=== PATIENT | male | born 1965 | race Hispanic/Latino ===

== ENCOUNTER 2018-11-18 14:28 | Inpatient (IN) | payer OTHER ==
[2018-11-18] MEDS ORDERED: Albuterol-Ipratrop 3 mg / 0.5 (3 ml) UD INH ONE (14:55)
[2018-11-18] MEDS ORDERED: Albuterol 0.083% Inhal Sol (2.5 mg/3 mL) UD IH STA (15:11)
[2018-11-18] MEDS ORDERED: Albuterol-Ipratrop 3 mg / 0.5 (3 ml) UD INH STA (15:13)
[2018-11-18 15:19] VITALS: BMI 29.8
[2018-11-18 15:46] LABS: BASO % 0.2 % (0.0-2.0); EOS % 0.1 % (0.0-4.0); HEMOGLOBIN 16.2 g/dL (12.0-18.0); LYMPH # 0.7 K/uL (1.0-4.3); LYMPH % 3.8 % (20.0-40.0); MEAN CORPUSCULAR HEMOGLOBIN 27.9 pg (27.0-31.0); MEAN CORPUSCULAR HGB CONC 32.8 g/dL (33.0-37.0); MEAN PLATELET VOLUME 8.1 fL (7.2-11.7); MONO # 0.8 K/uL (0.0-0.8); MONO % 4.7 % (0.0-10.0); NEUT # 16.3 K/uL (1.8-7.0); NEUT % 91.2 % (50.0-75.0); PLATELET COUNT 441 K/uL (130-400); RBC 5.83 Mil/uL (4.40-5.90); RED CELL DISTRIBUTION WIDTH 14.2 % (11.5-14.5); WHITE BLOOD COUNT 17.8 K/uL (4.8-10.8)
[2018-11-18] MEDS ORDERED: Albuterol 0.083% Inhal Sol (2.5 mg/3 mL) UD ONE (15:51)
[2018-11-18 16:13] LABS: ALB/GLOB RATIO 1.2 (1.0-2.1); ALBUMIN 4.1 g/dL (3.5-5.0); ALT/SGPT 12 U/L (21-72); AST/SGOT 53 U/L (17-59); BLOOD UREA NITROGEN 14 mg/dL (9-20); CALCIUM 9.1 mg/dl (8.6-10.4); GFR NON-AFRICAN AMERICAN > 60
[2018-11-18 16:36] LABS: B-TYPE NATRIURETIC PEPTIDE 15400 pg/mL (0-900); CK-MB 11.7 ng/mL (0.0-3.38)
--- NOTE | 2018-11-18 16:38 | C.PDOC ---
History Of Present Illness 53 y/o male brought to ER by ambulance for evaluation of shortness of breath and wheezing which began in the morning today. Patient states that he also has fever, chills, and non-productive cough since yesterday. Patient reports that he has history of marijuana smoking for "many years." Denies having CP, palpitations, nausea, vomiting, abdominal pain, diarrhea, and known history of asthma and COPD. Time Seen by Provider: 11/18/18 15:07 Chief Complaint (Nursing): Shortness Of Breath Past Medical History Reviewed: Historical Data, Nursing Documentation, Vital Signs Vital Signs: Last Vital Signs Temp 97.3 F L 11/18/18 14:55 Pulse 92 H 11/18/18 14:55 Resp 30 H 11/18/18 14:55 BP 146/68 11/18/18 14:55 Pulse Ox 91 L 11/18/18 14:55 - Medical History PMH: Arthritis Other Surgeries: Hx of surgeries Family History: States: No Known Family Hx - Social History Hx Alcohol Use: Yes Hx Substance Use: Yes Review Of Systems Except As Marked, All Systems Reviewed And Found Negative. Constitutional: Positive for: Fever, Chills Cardiovascular: Negative for: Chest Pain, Palpitations Respiratory: Positive for: Cough, Shortness of Breath, Wheezing Gastrointestinal: Negative for: Nausea, Vomiting, Abdominal Pain, Diarrhea Physical Exam - Physical Exam Appears: Other (speaking in full sentences, audible wheezing) Skin: Warm, Diaphoretic (mildly diaphoretic) Head: Atraumatic, Normacephalic Eye(s): bilateral: Normal Inspection Nose: Normal Oral Mucosa: Moist Neck: Supple Chest: Symmetrical Cardiovascular: Rhythm Regular (with tachycardia) Respiratory: Accessory Muscle Use (mild), No Rales, No Rhonchi, Wheezing (diffuse expiratory wheezing bilaterally), Other (coarse breath sounds B/L) Gastrointestinal/Abdominal: Normal Exam, Bowel Sounds, Soft, No Tenderness, No Guarding, No Rebound Extremity: Normal ROM Pulses: Left Dorsalis Pedis: Normal, Right Dorsalis Pedis: Normal Neurological/Psych: Oriented x3 ED Course And Treatment - Laboratory Results Result Diagrams: 11/18/18 15:42 11/18/18 15:42 Lab Results: Total Bilirubin 1.1 mg/dL (0.2-1.3) 11/18/18 15:42 AST 53 U/L (17-59) 11/18/18 15:42 ALT 12 U/L (21-72) L 11/18/18 15:42 Alkaline Phosphatase 79 U/L (38-126) 11/18/18 15:42 Total Protein 7.6 g/dL (6.3-8.3) 11/18/18 15:42 Albumin 4.1 g/dL (3.5-5.0) 11/18/18 15:42 Globulin 3.4 gm/dL (2.2-3.9) 11/18/18 15:42 Albumin/Globulin Ratio 1.2 (1.0-2.1) 11/18/18 15:42 ECG: Interpreted By Me, Viewed By Me ECG Rhythm: Sinus Tachycardia Interpretation Of ECG: Sinus Tachycardia with left axis deviation, T wave inversions in Leads I, AVL, V2, and no acute ST changes Rate From EC O2 Sat by Pulse Oximetry: 91 (RA) Pulse Ox Interpretation: Abnormal - CT Scan/US CT CHEST Other Rad Studies (CT/US): Read By Radiologist, Radiology Report Reviewed CT/US Interpretation: Accession No. : [id number]. Patient Name / ID : JOLLY Zhu / [id number]. Exam Date : 11/18/2018 16:44:44 ( Approved ). Study Comment : Sex / Age : M / 53Y. Creator : Ángela Hopkins. Dictator : Zully Hernandez MD. Trailhead Maintenance Worker : Electrician Apprentice : Zully Hernandez MD. Approver2 : Report Date : 11/18/2018 16:59:36. My Comment : . Date of service: 11/18/2018. CT chest without IV contrast. Indication: SOB, ? infiltrates. Technique: Contiguous axial images were obtained through the chest without intravenous contrast enhancement. Sagittal and coronal reconstructions were generated and reviewed. This CT exam was performed using 1 or more of the following dose reduction techniques: Automated exposure control, adjustment of the MAA and/or kV according to patient size, and/or use of iterative reconstruction technique. . Radiation dose (DLP): 950.27 MGy-cm. Comparison: Chest x-ray performed 11/18/18. Findings: Visualized portions of the inferior thyroid gland appear unremarkable. The un enhanced mediastinal and hilar vascular structures appear grossly unremarkable. Heart size appears top normal. Trace pericardial effusion. Dense coronary artery calcifications. Small bilateral pleural effusions. Patchy bilateral ground- glass airspace opacities with mid to upper lobe prominence. No pneumothorax. Limited visualization of the noncontrast upper abdomen appears grossly unremarkable. . Degenerative changes of the spine. Impression: Patchy bilateral ground-glass airspace opacities upper lobe predominance; indeterminate etiology. Correlate clinically. Considerations include but not limited to atypical infection, pulmonary edema, hemorrhage. Recommend follow-up upon completion of treatment for acute symptoms order to assess for complete resolution. Heart size appears top normal. Trace pericardial effusion. Dense coronary artery calcifications. Findings discussed with Dr. Leone on 11/18/18 at 5:28 p.m. Progress Note: Blood work, EKG, CXR, UA ordered and reviewed. Patient given IV solumedrol, albuterol treatments, IV Lasix, SL nitro, PO ASA. CXR abnormal, CT chest ordered. Broad spectrum antibiotics given for leukocytosis, B/L possible infiltrates. 5:35pm- Patient accepted for ICU admission by Dr. Rome. 6:15pm- Patient states he takes oxycodone for chronic pain, 15mg PO QID. one dose 15mg ordered now. - Physician Consult Information Physician Contacted: Ranjith Glover Outcome Of Conversation: Discussed patient with code heart cardio, patient does not meet COde Heart activation criteria at this time. He recommends IV heparin, PO Brilinta, ASA, and ICU admission. Will likely do cath in the AM. Disposition - Disposition Disposition: HOSPITALIZED Condition: SERIOUS - Clinical Impression Clinical Impression: Respiratory tract infection, Dyspnea - Scribe Statement The provider has reviewed the documentation as recorded by the Scribe Frank Marin Provider Attestation: All medical record entries made by the Scribe were at my direction and personally dictated by me. I have reviewed the chart and agree that the record accurately reflects my personal performance of the history, physical exam, medical decision making, and the department course for this patient. I have also personally directed, reviewed, and agree with the discharge instructions and disposition.
--- NOTE | 2018-11-18 16:39 | C.PDOC ---
Time Seen by Provider: 11/18/18 15:07 Chief Complaint (Nursing): Shortness Of Breath Past Medical History Vital Signs: Last Vital Signs Temp 97.3 F L 11/18/18 14:55 Pulse 92 H 11/18/18 14:55 Resp 30 H 11/18/18 14:55 BP 146/68 11/18/18 14:55 Pulse Ox 91 L 11/18/18 14:55 - Medical History PMH: Arthritis - Social History Hx Alcohol Use: Yes Hx Substance Use: Yes ED Course And Treatment - Laboratory Results Result Diagrams: 11/18/18 15:42 11/18/18 15:42 Lab Results: Total Bilirubin 1.1 mg/dL (0.2-1.3) 11/18/18 15:42 AST 53 U/L (17-59) 11/18/18 15:42 ALT 12 U/L (21-72) L 11/18/18 15:42 Alkaline Phosphatase 79 U/L (38-126) 11/18/18 15:42 Total Protein 7.6 g/dL (6.3-8.3) 11/18/18 15:42 Albumin 4.1 g/dL (3.5-5.0) 11/18/18 15:42 Globulin 3.4 gm/dL (2.2-3.9) 11/18/18 15:42 Albumin/Globulin Ratio 1.2 (1.0-2.1) 11/18/18 15:42 O2 Sat by Pulse Oximetry: 91 Disposition - Disposition
[2018-11-18 16:48] LABS: LYMPHOCYTE 4 % (20-40); MONOCYTE 3 % (0-10); NEUTROPHIL 93 % (50-75); PLATELET ESTIMATE SLIGHTLY INCREASED (NORMAL); TOTAL CELLS COUNTED 100
[2018-11-18] MEDS ORDERED: cefTRIAXone IV 1 gm in Dextros 50 ML IV ONE (16:56)
[2018-11-18] MEDS ORDERED: Azithromycin 500 MG in Sodium Chloride 0.9% 250 ML IVPB STA (16:57)
--- NOTE | 2018-11-18 17:08 | RAD ---
HISTORY: SOB COMPARISON: None available TECHNIQUE: Chest, one view. FINDINGS: LUNGS: Patchy bilateral airspace opacities and interstitial edema/infection. PLEURA: No significant pleural effusion identified. No definite pneumothorax . CARDIOVASCULAR: Borderline cardiomegaly. Faintly visualized atherosclerotic calcifications. OSSEOUS STRUCTURES: Degenerative changes of the spine. VISUALIZED UPPER ABDOMEN: Unremarkable. OTHER FINDINGS: None. IMPRESSION: Patchy bilateral airspace opacities and interstitial edema/infection.
[2018-11-18] MEDS ORDERED: Heparin25000 units/250ml 1/2NS 25,000 UNITS/250 ML BAG IV STA (17:25)
--- NOTE | 2018-11-18 17:27 | C.PDOC ---
History Of Present Illness 53 year male with hx of marijuana use presenting with c/o SOB since yesterday. CT chest shows bilateral pleural effusions with leukocytosis. Denies any chest pain Time Seen by Provider: 11/18/18 15:07 Chief Complaint (Nursing): Shortness Of Breath History Per: Patient History/Exam Limitations: no limitations Onset/Duration Of Symptoms: Waxing/Waning Current Symptoms Are (Timing): Still Present Exacerbating Factor(s): Coughing Current Respiratory Medications: See Home Med List Severity: Moderate Pain Scale Rating Of: 0 Associated Symptoms: Dizziness Past Medical History Vital Signs: Last Vital Signs Temp 97.3 F L 11/18/18 14:55 Pulse 92 H 11/18/18 14:55 Resp 30 H 11/18/18 14:55 BP 146/68 11/18/18 14:55 Pulse Ox 91 L 11/18/18 17:20 - Medical History PMH: Arthritis Other Surgeries: Hx of surgeries Family History: States: No Known Family Hx - Social History Hx Alcohol Use: Yes Hx Substance Use: Yes Review Of Systems Respiratory: Positive for: Shortness of Breath Physical Exam - Physical Exam Appears: Well, No Acute Distress Skin: Normal Color, Warm, Dry Eye(s): bilateral: Normal Inspection, PERRL, EOMI Nose: Normal Throat: Normal Neck: Normal Cardiovascular: Rhythm Regular Respiratory: Normal Breath Sounds Gastrointestinal/Abdominal: Normal Exam Back: Normal Inspection Extremity: Normal ROM ED Course And Treatment - Laboratory Results Result Diagrams: 11/18/18 15:42 11/18/18 15:42 Lab Results: Troponin I 3.3300 ng/mL (0.00-0.120) H* 11/18/18 15:42 NT-Pro-B Natriuret Pep 59355 pg/mL (0-900) H 11/18/18 15:42 Total Bilirubin 1.1 mg/dL (0.2-1.3) 11/18/18 15:42 AST 53 U/L (17-59) 11/18/18 15:42 ALT 12 U/L (21-72) L 11/18/18 15:42 Alkaline Phosphatase 79 U/L (38-126) 11/18/18 15:42 Total Protein 7.6 g/dL (6.3-8.3) 11/18/18 15:42 Albumin 4.1 g/dL (3.5-5.0) 11/18/18 15:42 Globulin 3.4 gm/dL (2.2-3.9) 11/18/18 15:42 Albumin/Globulin Ratio 1.2 (1.0-2.1) 11/18/18 15:42 O2 Sat by Pulse Oximetry: 91 (RA) Medical Decision Making Medical Decision Making: IV heparin load with brilinta asa bb statins ICU echo plan for cath in am Disposition Doctor Will See Patient In The: Hospital - Disposition Disposition: HOSPITALIZED Disposition Time: 18:00 Condition: SERIOUS Forms: [employer] (Citizen [place]) - POA Core Measure Indicators: Pneumonia - Clinical Impression Clinical Impression: Respiratory tract infection, Dyspnea - Scribe Statement The provider has reviewed the documentation as recorded by the Scribe
--- NOTE | 2018-11-18 17:37 | CT ---
Date of service: 11/18/2018 CT chest without IV contrast Indication: SOB, ? infiltrates Technique: Contiguous axial images were obtained through the chest without intravenous contrast enhancement. Sagittal and coronal reconstructions were generated and reviewed. This CT exam was performed using 1 or more of the following dose reduction techniques: Automated exposure control, adjustment of the MAA and/or kV according to patient size, and/or use of iterative reconstruction technique. Radiation dose (DLP): 950.27 MGy-cm. Comparison: Chest x-ray performed 11/18/18 Findings: Visualized portions of the inferior thyroid gland appear unremarkable. The unenhanced mediastinal and hilar vascular structures appear grossly unremarkable. Heart size appears top normal. Trace pericardial effusion. Dense coronary artery calcifications. Small bilateral pleural effusions. Patchy bilateral ground-glass airspace opacities with mid to upper lobe prominence. No pneumothorax. Limited visualization of the noncontrast upper abdomen appears grossly unremarkable. Degenerative changes of the spine. Impression: Patchy bilateral ground-glass airspace opacities upper lobe predominance; indeterminate etiology. Correlate clinically. Considerations include but not limited to atypical infection, pulmonary edema, hemorrhage. Recommend follow-up upon completion of treatment for acute symptoms order to assess for complete resolution. Heart size appears top normal. Trace pericardial effusion. Dense coronary artery calcifications. Findings discussed with Dr. Leone on 11/18/18 at 5:28 p.m.
[2018-11-18] MEDS ORDERED: Piperacillin/Tazobact 3.375 gm 100 ML IVPB STA (17:39)
[2018-11-18] MEDS ORDERED: Vancomycin 1 GM 1 GM/250 ML BAG IV STA (17:39)
--- NOTE | 2018-11-18 17:58 | CP.CCUPN ---
CCU Subjective - Physician Review Subjective (Free Text): 11/18/18 17:51 Critical Care Progress Note for Dr. Rome's service CC: Shortness of breath HPI: Patient is a 53 yo male w/ PMH of chronic pain and substance/etoh abuse presents to emergency department for shortness of breath. Patient on bipap limiting evaluation. Patient admits to shortness of breath starting yesterday. Patient denies chest pain. Patient admits to drinking 2 bottles of eight ounces daily mixed with vodka at times. Patient admits to chewing tobacco going through 2 dips per day since high school. Patient admits to marijuana use as well. Patient was put on bipap and transferred to ICU. Patient admits to sob, fevers, diaphoresiss, appetite loss. Patient denies headaches, dizziness, chest pain, n/v, constipation or diarrhea, and dysuria. PMH- chronic pain and substance/etoh abuse PSH- b/l knee replacement, left hip replacement, hernia, pilonidal cyst Meds- oxycodone, viagra Alleriges- NKDA FH- Mother (DM); Father&brother w/ heart disease Social- 2 dips per day since high school, etoh use as described, marijuana use (candies and brownies) 5 years PMD- Dr. Brittany Torres 11/18/18 18:59 Critical Care Time Spent (in minutes): 35 CCU Objective - Vital Signs / Intake & Output Vital Signs (Last 4 hours): Vital Signs Temp Pulse Resp BP Pulse Ox 11/18/18 17:44 91 L 11/18/18 17:28 91 L 11/18/18 14:55 97.3 F L 92 H 30 H 146/68 91 L Intake and Output (Last 8hrs): Intake & Output 11/18/18 11/18/18 11/18/18 06:59 14:59 22:59 Weight 220 lb 220 lb - Physical Exam Head: Positive for: Atraumatic, Normocephalic Pupils: Positive for: PERRL Extroacular Muscles: Positive for: EOMI Respiratory/Chest: Positive for: Respiratory Distress, Wheezes, Decreased Breath Sounds. Negative for: Good Air Exchange, Accessory Muscle Use Cardiovascular: Positive for: Regular Rate and Rhythm, Normal S1, S2. Negative for: Tachycardic Abdomen: Positive for: Normal Bowel Sounds. Negative for: Tenderness, Distention Upper Extremity: Positive for: Normal Inspection. Negative for: Cyanosis, Edema Lower Extremity: Positive for: Normal Inspection. Negative for: Edema Neurological: Positive for: GCS=15 Skin: Positive for: Warm, Normal Color Psychiatric: Positive for: Alert, Oriented x 3 - Medications Active Medications: Active Medications Generic Name Dose Route Start Last Admin Trade Name Freq PRN Reason Stop Dose Admin Heparin Sodium/Sodium Chloride 25,000 units in 250 mls @ 11.975 mls/hr 11/18/18 17:25 Heparin 23041 Units/250ml 1/2 Normal Saline IV 11/19/18 14:17 .[id number] STA Protocol 12 UNITS/KG/HR Piperacillin Sod/Tazobactam Sod 100 mls @ 200 mls/hr 11/18/18 17:39 Zosyn 3.375 In Ns 100ml IVPB 11/18/18 18:08 STAT STA Protocol Vancomycin HCl 1 gm in 250 mls @ 166.667 mls/hr 11/18/18 17:39 Vancomycin 1gm In Normal Saline Addvantage IV 11/18/18 19:08 STAT STA Protocol - Patient Studies Lab Studies: Lab Studies 11/18/18 11/18/18 11/18/18 Range/Units 16:39 15:42 15:42 WBC 17.8 H (4.8-10.8) K/uL RBC 5.83 (4.40-5.90) Mil/uL Hgb 16.2 (12.0-18.0) g/dL Hct 49.6 (35.0-51.0) % MCV 85.0 (80.0-94.0) fL MCH 27.9 (27.0-31.0) pg MCHC 32.8 L (33.0-37.0) g/dL RDW 14.2 (11.5-14.5) % Plt Count 441 H (130-400) K/uL MPV 8.1 (7.2-11.7) fL Neut % (Auto) 91.2 H (50.0-75.0) % Lymph % (Auto) 3.8 L (20.0-40.0) % [place] % (Auto) 4.7 (0.0-10.0) % Eos % (Auto) 0.1 (0.0-4.0) % Baso % (Auto) 0.2 (0.0-2.0) % Neut # (Auto) 16.3 H (1.8-7.0) K/uL Lymph # (Auto) 0.7 L (1.0-4.3) K/uL [place] # (Auto) 0.8 (0.0-0.8) K/uL Eos # (Auto) 0.0 (0.0-0.7) K/uL Baso # (Auto) 0.0 (0.0-0.2) K/uL Neutrophils % (Manual) 93 H (50-75) % Lymphocytes % (Manual) 4 L (20-40) % Monocytes % (Manual) 3 (0-10) % Platelet Estimate Slightly increased H (NORMAL) Sodium 137 (132-148) mmol/L Potassium 3.5 L (3.6-5.2) mmol/L Chloride 101 (98-107) mmol/L Carbon Dioxide 26 (22-30) mmol/L Anion Gap 14 (10-20) BUN 14 (9-20) mg/dL Creatinine 0.7 L (0.8-1.5) mg/dL Est GFR ( Amer) > 60 Est GFR (Non-Af Amer) > 60 Random Glucose 167 H (75-110) mg/dL Calcium 9.1 (8.6-10.4) mg/dl Total Bilirubin 1.1 (0.2-1.3) mg/dL AST 53 (17-59) U/L ALT 12 L (21-72) U/L Alkaline Phosphatase 79 (38-126) U/L Lactate Dehydrogenase 628 H (313-618) U/L Total Creatine Kinase 220 H (55-170) U/L CK-MB (Mass) 11.7 H (0.0-3.38) ng/mL Troponin I 3.3300 H* (0.00-0.120) ng/mL NT-Pro-B Natriuret Pep 74052 H (0-900) pg/mL Total Protein 7.6 (6.3-8.3) g/dL Albumin 4.1 (3.5-5.0) g/dL Globulin 3.4 (2.2-3.9) gm/dL Albumin/Globulin Ratio 1.2 (1.0-2.1) Laboratory Results - last 24 hr 11/18/18 11/18/18 11/18/18 15:42 15:42 16:39 WBC 17.8 H RBC 5.83 Hgb 16.2 Hct 49.6 MCV 85.0 MCH 27.9 MCHC 32.8 L RDW 14.2 Plt Count 441 H MPV 8.1 Neut % (Auto) 91.2 H Lymph % (Auto) 3.8 L [place] % (Auto) 4.7 Eos % (Auto) 0.1 Baso % (Auto) 0.2 Neut # (Auto) 16.3 H Lymph # (Auto) 0.7 L [place] # (Auto) 0.8 Eos # (Auto) 0.0 Baso # (Auto) 0.0 Neutrophils % (Manual) 93 H Lymphocytes % (Manual) 4 L Monocytes % (Manual) 3 Platelet Estimate Slightly increased H Sodium 137 Potassium 3.5 L Chloride 101 Carbon Dioxide 26 Anion Gap 14 BUN 14 Creatinine 0.7 L Est GFR ( Amer) > 60 Est GFR (Non-Af Amer) > 60 Random Glucose 167 H Calcium 9.1 Total Bilirubin 1.1 AST 53 ALT 12 L Alkaline Phosphatase 79 Lactate Dehydrogenase 628 H Total Creatine Kinase 220 H CK-MB (Mass) 11.7 H Troponin I 3.3300 H* NT-Pro-B Natriuret Pep 44422 H Total Protein 7.6 Albumin 4.1 Globulin 3.4 Albumin/Globulin Ratio 1.2 Radiology Impressions: Radiology Impressions Chest X-Ray 11/18/18 15:11 IMPRESSION: Patchy bilateral airspace opacities and interstitial edema/infection. Chest CT 11/18/18 16:23 Impression: Patchy bilateral ground-glass airspace opacities upper lobe predominance; indeterminate etiology. Correlate clinically. Considerations include but not limited to atypical infection, pulmonary edema, hemorrhage. Recommend follow-up upon completion of treatment for acute symptoms order to assess for complete resolution. Heart size appears top normal. Trace pericardial effusion. Dense coronary artery calcifications. Findings discussed with Dr. Leone on 11/18/18 at 5:28 p.m. EKG/Cardiology Studies: Cardiology / EKG Studies 11/18/18 15:11 ELECTROCARDIOGRAM Stat Comment: BED12 Mode Of Transportation: BED Reason For Exam: SOB 01/08/19 16:36 EKG [ELECTROCARDIOGRAM] Stat Comment: BED5 Mode Of Transportation: STRETCHER Reason For Exam: REPEAT Review of Systems - Review of Systems Review of Systems: 12 point ROS obtained and noted as in HPI Critical Care Progress Note - Extremities/Vascular Does the Patient have a Central Venous Catheter?: No Does the Patient need a Central Venous Catheter?: No Does the Patient have a Hatch Catheter?: No Does the Patient need a Hatch Catheter?: No - Prophylaxis GI Prophylaxis GI: Not Indicated - Prophylaxis DVT Prophylaxis DVT: Heparin SQ Assessment/Plan - Assessment and Plan (Free Text) Assessment: Patient is a 53 yo male w/ PMH of chronic pain, 1x episode of PNA admitted to ICU for shortness of breath, elevated troponins, bnp, and white count. Patient admits to heavy drinking, occasional marijuana use. Neuro awake alert oriented no acute issues Pulm on bipap maintain spo2 >92 % Cxray and Chest CT shows bilateral pulmonary edema and bilateral infiltrates with bilateral pleural effusions (small) Elevated BNP Drug screen pending Solumedrol, Duoneb Asa CV Elevated troponins; no chest pain Dr. Glover consulted- aspirin, brilinta, heparin bolus + drip, nitrogylcerin, lasix x 1 in ED Cardiac cath in AM; Npo at midnight except meds Etiology likely UT that led to pulmonary edema GI no active issues Renal KCl 20meq x 2 oral- goal of K >4 Repeat CMP in AM ID Elevated white blood cell count b/l infiltrates seen on chest xray cx pending PNA studies pending; HIV studies pending; UDS pending Azithromycin Zosyn Disposition: NPO at midnight; pending cardiac cath in AM with melly; continue abx for infiltrates; repeat trops pending; optimize oxygenation via bipap PGY-1 [facility] d/w Dr. Rome
[2018-11-18] MEDS ORDERED: Piperacillin/Tazobact 3.375 gm 100 ML IVPB ONE (17:59)
[2018-11-18] MEDS ORDERED: Potassium Chloride 20 mEq ER Tab PO ONE ×2 (18:15→19:08)
[2018-11-18] MEDS ORDERED: oxyCODONE 10 mg ER Tab (oxyCONTIN) PO STA (18:20)
[2018-11-18] MEDS ORDERED: Potassium Chloride 20 mEq/15 ml LIQ UD PO ONE (18:30)
[2018-11-18 18:45] LABS: VENOUS BLOOD GAS BASE EXCESS 0.5 mmol/L (0.0-2.0); VENOUS BLOOD GAS PCO2 44 mmHg (40-60); VENOUS BLOOD GAS PO2 20 mm/Hg (30-55); VENOUS BLOOD PH 7.38 (7.32-7.43)
[2018-11-18] MEDS ORDERED: oxyCODONE 20 mg ER Tab (oxyCONTIN) PO ONE (19:13)
[2018-11-18] MEDS ORDERED: oxyCODONE 20 mg ER Tab (oxyCONTIN) PO STA (19:26)
[2018-11-18] MEDS: Piperacill/Tazo 3.375gm in Dex 3.375 GM/50 ML BAG IVPB SCH (19:49)
[2018-11-18 20:18] LABS: CK-MB 13.8 ng/mL (0.0-3.38); TROPONIN I 3.34 ng/mL (0.00-0.120)
[2018-11-18 20:21] LABS: INR 1.2; PROTHROMBIN TIME 13.6 SECONDS (9.7-12.2)
[2018-11-18] MEDS ORDERED: Midazolam 2 MG/2 ML VIAL IVP ONE (20:23)
[2018-11-18] MEDS ORDERED: Midazolam 2 MG/2 ML VIAL ONE (20:23)
[2018-11-18] MEDS: Propofol 10 mg/ml 1,000 MG/100 ML VIAL IV PRN ×2 (20:50→23:54)
--- NOTE | 2018-11-18 21:13 | PCM.PROC ---
Procedures Attestation:: I certify that I have explained the specified Operation(s) or Procedure(s), risks, benefits and reasonable alternatives to the Patient and/or other person responsible. The opportunity was given to ask questions and all questions answered - Intubation Time Out Performed: No (urgent) Sedative: Versed, Other (propofol) Laryngoscope: Glidescope ET Tube Size: 8.0 ET Tube Uncuffed: No (cuffed) ET Tube Secured Locarion: Lips (22 cm) ET Tube Placement Confirmation: Visualized Passing Through Cords, No Breath Sounds Over Epigastrum, Confirmation w/Capnometry Patient Tolerated Procedure: Well, No Complications Additional comments: awaiting CXR to confirm depth.
[2018-11-18] MEDS: Midazolam 50 mg/10 ml 100 MG in Sodium Chloride 0.9% 80 ML IV SCH (21:44)
[2018-11-18 21:55] LABS: ABG ALLEN TEST UNABLE; ARTERIAL BLOOD GAS HCO3 22.1 mmol/L (21-28); ARTERIAL BLOOD GAS O2 SAT 97.9 % (95-98); ARTERIAL BLOOD GAS PCO2 38 mm/Hg (35-45); ARTERIAL BLOOD GAS PH 7.36 (7.35-7.45); ARTERIAL BLOOD GAS PO2 86 mm/Hg (80-100); ARTERIAL BLOOD GAS TCO2 22.7 mmol/L (22-28)
[2018-11-19] MEDS ORDERED: Potassium Chloride 20 mEq/15 ml LIQ UD PO STA (00:03)
[2018-11-19 00:25] LABS: URINE BILIRUBIN NEGATIVE (NEGATIVE); URINE BLOOD NEGATIVE (NEGATIVE); URINE CLARITY Clear (Clear); URINE COLOR Yellow (YELLOW); URINE GLUCOSE (UA) 1+ mg/dL (Normal); URINE LEUKOCYTE ESTERASE NEG Leu/uL (Negative); URINE PROTEIN NEGATIVE (NEGATIVE); URINE UROBILINOGEN NORMAL mg/dL (0.2-1.0)
[2018-11-19 00:35] LABS: BARBITURATES, UR NEGATIVE (NEGATIVE); PHENCYCLIDINE, UR NEGATIVE (NEGATIVE)
[2018-11-19] MEDS: Albuterol-Ipratrop 3 mg / 0.5 (3 ml) UD INH SCH ×6 (00:39→20:48)
[2018-11-19 00:40] LABS: BENZODIAZEPINES, UR POSITIVE (NEGATIVE); OPIATES, UR POSITIVE (NEGATIVE)
[2018-11-19] MEDS: Piperacill/Tazo 3.375gm in Dex 3.375 GM/50 ML BAG IVPB SCH ×3 (03:14→20:28)
[2018-11-19] MEDS: Propofol 10 mg/ml 1,000 MG/100 ML VIAL IV PRN ×4 (03:19→17:04)
[2018-11-19 03:20] LABS: LYMPH # 0.6 K/uL (1.0-4.3); LYMPH % 2.6 % (20.0-40.0); MEAN CELL VOLUME 85.3 fL (80.0-94.0); MEAN CORPUSCULAR HEMOGLOBIN 27.7 pg (27.0-31.0); MEAN CORPUSCULAR HGB CONC 32.5 g/dL (33.0-37.0); MEAN PLATELET VOLUME 8.4 fL (7.2-11.7); MONO # 0.8 K/uL (0.0-0.8); MONO % 3.9 % (0.0-10.0); NEUT # 20.5 K/uL (1.8-7.0); NEUT % 93.5 % (50.0-75.0); PLATELET COUNT 371 K/uL (130-400); RBC 6.13 Mil/uL (4.40-5.90); RED CELL DISTRIBUTION WIDTH 14.5 % (11.5-14.5)
[2018-11-19 03:53] LABS: ALB/GLOB RATIO 1.2 (1.0-2.1); ALBUMIN 4.1 g/dL (3.5-5.0); ALT/SGPT 17 U/L (21-72); AST/SGOT 57 U/L (17-59); BLOOD UREA NITROGEN 17 mg/dL (9-20); CALCIUM 8.5 mg/dl (8.6-10.4); CK-MB 20.6 ng/mL (0.0-3.38); GFR NON-AFRICAN AMERICAN > 60
[2018-11-19 05:06] LABS: BANDS 1 % (0-2); LYMPHOCYTE 2 % (20-40); MONOCYTE 4 % (0-10); NEUTROPHIL 93 % (50-75); PLATELET ESTIMATE NORMAL (NORMAL); TOTAL CELLS COUNTED 100
[2018-11-19 06:42] LABS: ABG ALLEN TEST POS; ARTERIAL BLOOD GAS HCO3 24.8 mmol/L (21-28); ARTERIAL BLOOD GAS O2 SAT 100.7 % (95-98); ARTERIAL BLOOD GAS PCO2 38 mm/Hg (35-45); ARTERIAL BLOOD GAS PH 7.41 (7.35-7.45); ARTERIAL BLOOD GAS PO2 246 mm/Hg (80-100); ARTERIAL BLOOD GAS TCO2 25.3 mmol/L (22-28)
[2018-11-19] MEDS: Azithromycin 500 MG in Sodium Chloride 0.9% 250 ML IVPB SCH (09:25)
[2018-11-19] MEDS ORDERED: MethylPREDNISolone 40 mg Vial IVP SCH (10:00)
[2018-11-19 10:56] LABS: CK-MB 14.2 ng/mL (0.0-3.38); TROPONIN I 3.53 ng/mL (0.00-0.120)
--- NOTE | 2018-11-19 11:21 | RAD ---
Date of service: 11/18/2018 HISTORY: s/p intubation COMPARISON: Comparison made with chest radiograph and CT chest both dated 11/18/2018.. FINDINGS: In situ ETT, tip of which lies approximately 7.1 cm above alison. NGT is present, tip of which has not included on this film though distal aspect does lie below EG junction. LUNGS: Interval progression diffuse bilateral infiltrates.. Findings could represent diffuse bilateral pneumonia and/or pulmonary venous congestion PLEURA: No significant pleural effusion identified, no pneumothorax apparent. CARDIOVASCULAR: Minimal aortic atherosclerotic calcification present. Normal cardiac size. . OSSEOUS STRUCTURES: Multilevel degenerative spondylosis of the thoracic spine. VISUALIZED UPPER ABDOMEN: Normal. OTHER FINDINGS: None. IMPRESSION: ETT NGT as above. Interval progression diffuse bilateral infiltrates. Findings could represent diffuse bilateral pneumonia and/or pulmonary venous congestion
--- NOTE | 2018-11-19 11:48 | CP.CCUPN ---
<Fuentes Pennington - Last Filed: 11/19/18 11:45> CCU Subjective - Physician Review Events Since Last Encounter (Free Text): 11/19/18 11:46 patient was intubated overnight due to tachypnea and hypoxia. 11/19/18 11:46 Subjective (Free Text): 11/18/18 17:51 Critical Care Progress Note for Dr. Rome's service Patient seen and examined at bedside. Family and friend were at bedside. Were updated on condition. ROS limited 2/2 patient condition. Critical Care Time Spent (in minutes): 35 CCU Objective - Vital Signs / Intake & Output Vital Signs (Last 4 hours): Vital Signs Temp Pulse Resp BP Pulse Ox 11/19/18 11:00 128 H 29 H 100 11/19/18 10:55 129 H 28 H 111/84 100 11/19/18 10:39 114/78 11/19/18 10:30 136 H 35 H 100 11/19/18 10:25 136 H 32 H 114/78 100 11/19/18 10:00 134 H 32 H 100 11/19/18 09:55 127 H 28 H 108/83 100 11/19/18 09:30 114 H 21 100 11/19/18 09:25 114 H 22 103/81 100 11/19/18 09:00 115 H 22 100 11/19/18 08:55 115 H 24 104/74 100 11/19/18 08:30 120 H 20 100 11/19/18 08:25 118 H 19 109/85 100 11/19/18 08:00 99.6 F 121 H 18 100 11/19/18 07:55 121 H 17 110/85 100 Intake and Output (Last 8hrs): Intake & Output 11/18/18 11/19/18 11/19/18 22:59 06:59 14:59 Intake Total 292.9 637.4 343.4 Output Total 350 780 220 Balance -57.1 -142.6 123.4 Weight 220 lb 214 lb 11.684 oz Intake: IV 20 182 167 Intake, IV Amount 272.9 355.4 176.4 Left forearm 34.9 215.4 87.5 Right Wrist 202 44 27 left AC 36 96 61.9 Oral 0 0 0 Albumin 100 Output: Urine 350 780 220 Urethral (Hatch) 350 780 220 Urine, Voided 0 Other: # Bowel Movements 0 0 0 - Physical Exam Head: Positive for: Atraumatic, Normocephalic Pupils: Positive for: PERRL Extroacular Muscles: Positive for: EOMI Mouth: Positive for: Other (ETT tube) Respiratory/Chest: Positive for: Respiratory Distress. Negative for: Good Air Exchange, Accessory Muscle Use Cardiovascular: Positive for: Regular Rate and Rhythm, Normal S1, S2, Tachycardic. Negative for: Murmurs Abdomen: Positive for: Normal Bowel Sounds. Negative for: Tenderness, Distention Upper Extremity: Positive for: Normal Inspection. Negative for: Cyanosis, Edema Lower Extremity: Positive for: Normal Inspection. Negative for: Edema Neurological: Negative for: GCS=15 Skin: Positive for: Warm, Normal Color Psychiatric: Negative for: Alert, Oriented x 3 - Medications Active Medications: Active Medications Generic Name Dose Route Start Last Admin Trade Name Freq PRN Reason Stop Dose Admin Acetaminophen 650 mg 11/18/18 18:37 Tylenol 325mg Tab PO Q6 PRN pain+fever Albuterol/Ipratropium 3 ml 11/18/18 20:00 11/19/18 03:13 Duoneb 3 Mg/0.5 Mg (3 Ml) Ud INH 3 ml RQ4 NIKITA Administration Aspirin 81 mg 11/19/18 10:00 11/19/18 09:25 Aspirin Chewable PO 81 mg DAILY NIKITA Administration Furosemide 40 mg 11/18/18 23:15 11/19/18 10:39 Lasix IVP 11/20/18 11:16 40 mg Q12H NIKITA Administration Heparin Sodium/Sodium Chloride 25,000 units in 250 mls @ 11.975 mls/hr 11/18/18 17:25 11/18/18 18:14 Heparin 38068 Units/250ml 1/2 Normal Saline IV 11/19/18 14:17 11.975 mls/hr .[id number] STA Administration Protocol 12 UNITS/KG/HR Azithromycin 500 mg/ Sodium 250 mls @ 250 mls/hr 11/19/18 10:00 11/19/18 09:25 Chloride IVPB 250 mls/hr DAILY NIKITA Administration Protocol Piperacillin Sod/Tazobactam Sod 3.375 gm in 50 mls @ 100 mls/hr 11/18/18 19:00 11/19/18 10:40 Zosyn 3.375 Gm Iv Premix IVPB 100 mls/hr Q8H NIKITA Administration Protocol Propofol 1,000 mg in 100 mls @ 2.994 mls/hr 11/18/18 20:32 11/19/18 08:26 Diprivan IV 29.22 mcg/kg/min .Q24H PRN 17.5 mls/hr TITRATE PER MD ORDER Administration Protocol 5 MCG/KG/MIN Midazolam HCl 100 mg/ Sodium 100 mls @ 2 mls/hr 11/18/18 21:00 11/19/18 09:04 Chloride IV 0.04 mg/kg/hr .Q24H NIKITA 4 mls/hr Titration Protocol 0.02 MG/KG/HR Influenza Virus Vaccine 60 mcg 11/20/18 10:00 Flucelvax Quad [id number] Syr IM 11/20/18 10:01 .ONCE ONE Pantoprazole Sodium 40 mg 11/19/18 10:00 11/19/18 10:39 Protonix Inj IVP 40 mg DAILY NIKITA Administration Pneumococcal Polyvalent Vaccine 0.5 ml 11/21/18 10:00 Pneumovax 23 Vaccine IM 11/21/18 10:01 .ONCE ONE - Patient Studies Lab Studies: Lab Studies 11/19/18 11/19/18 11/19/18 Range/Units 10:09 10:09 05:18 WBC (4.8-10.8) K/uL RBC (4.40-5.90) Mil/uL Hgb (12.0-18.0) g/dL Hct (35.0-51.0) % MCV (80.0-94.0) fL MCH (27.0-31.0) pg MCHC (33.0-37.0) g/dL RDW (11.5-14.5) % Plt Count (130-400) K/uL MPV (7.2-11.7) fL Neut % (Auto) (50.0-75.0) % Lymph % (Auto) (20.0-40.0) % [place] % (Auto) (0.0-10.0) % Eos % (Auto) (0.0-4.0) % Baso % (Auto) (0.0-2.0) % Neut # (Auto) (1.8-7.0) K/uL Lymph # (Auto) (1.0-4.3) K/uL [place] # (Auto) (0.0-0.8) K/uL Eos # (Auto) (0.0-0.7) K/uL Baso # (Auto) (0.0-0.2) K/uL Neutrophils % (Manual) (50-75) % Band Neutrophils % (0-2) % Lymphocytes % (Manual) (20-40) % Monocytes % (Manual) (0-10) % Platelet Estimate (NORMAL) PT (9.7-12.2) SECONDS INR APTT 39 H D (21-34) SECONDS Puncture Site L rad pCO2 38 (35-45) mm/Hg pO2 246 H (30-55) mm/Hg HCO3 24.8 (21-28) mmol/L ABG pH 7.41 (7.35-7.45) ABG Total CO2 25.3 (22-28) mmol/L ABG O2 Saturation 100.7 H (95-98) % ABG Base Excess -0.3 (-2.0-3.0) mmol/L Anurag Test Pos ABG Potassium 3.9 (3.6-5.2) mmol/L VBG pH (7.32-7.43) VBG pCO2 (40-60) mmHg VBG HCO3 mmol/L VBG Total CO2 (22-28) mmol/L VBG O2 Sat (Calc) (40-65) % VBG Base Excess (0.0-2.0) mmol/L VBG Potassium (3.6-5.2) mmol/L A-a O2 Difference 420.0 mm/Hg Respiratory Index 1.7 Glucose 127 H (75-110) mg/dl Lactate 1.7 (0.7-2.1) mmol/L Vent Mode Prvc Mechanical Rate 16 FiO2 100.0 % Tidal Volume 500 PEEP 8 Expiratory BiPAP Sodium 138.0 (132-148) mmol/L Potassium (3.6-5.2) mmol/L Chloride 106.0 (98-107) mmol/L Carbon Dioxide (22-30) mmol/L Anion Gap (10-20) BUN (9-20) mg/dL Creatinine (0.8-1.5) mg/dL Est GFR ( Amer) Est GFR (Non-Af Amer) Random Glucose (75-110) mg/dL Calcium (8.6-10.4) mg/dl Phosphorus (2.5-4.5) mg/dL Magnesium (1.6-2.3) mg/dL Total Bilirubin (0.2-1.3) mg/dL AST (17-59) U/L ALT (21-72) U/L Alkaline Phosphatase (38-126) U/L Lactate Dehydrogenase (313-618) U/L Total Creatine Kinase 230 H (55-170) U/L CK-MB (Mass) 14.2 H (0.0-3.38) ng/mL Troponin I 3.5300 H* (0.00-0.120) ng/mL NT-Pro-B Natriuret Pep (0-900) pg/mL Total Protein (6.3-8.3) g/dL Albumin (3.5-5.0) g/dL Globulin (2.2-3.9) gm/dL Albumin/Globulin Ratio (1.0-2.1) Arterial Blood Potassium 3.9 (3.6-5.2) mmol/L Venous Blood Potassium (3.6-5.2) mmol/L Urine Color (YELLOW) Urine Clarity (Clear) Urine pH (5.0-8.0) Ur Specific [place] (1.003-1.030) Urine Protein (NEGATIVE) mg/dL Urine Glucose (UA) (Normal) mg/dL Urine Ketones (NEGATIVE) mg/dL Urine Blood (NEGATIVE) Urine Nitrate (NEGATIVE) Urine Bilirubin (NEGATIVE) Urine Urobilinogen (0.2-1.0) mg/dL Ur Leukocyte Esterase (Negative) Isi/uL Urine WBC (Auto) (0-5) /hpf Urine RBC (Auto) (0-3) /hpf Hyaline Casts (0-2) /lpf Urine Opiates Screen (NEGATIVE) Urine Methadone Screen (NEGATIVE) Ur Barbiturates Screen (NEGATIVE) Ur Phencyclidine Scrn (NEGATIVE) Ur Amphetamines Screen (NEGATIVE) U Benzodiazepines Scrn (NEGATIVE) U Oth Cocaine Metabols (NEGATIVE) U Cannabinoids Screen (NEGATIVE) HIV 1&2 Antibody Screen (NEGATIVE) Ur L.pneumophila Ag (NEGATIVE) 11/19/18 11/19/18 11/19/18 Range/Units 03:15 03:15 03:15 WBC 22.0 H (4.8-10.8) K/uL RBC 6.13 H (4.40-5.90) Mil/uL Hgb 17.0 (12.0-18.0) g/dL Hct 52.3 H (35.0-51.0) % MCV 85.3 (80.0-94.0) fL MCH 27.7 (27.0-31.0) pg MCHC 32.5 L (33.0-37.0) g/dL RDW 14.5 (11.5-14.5) % Plt Count 371 (130-400) K/uL MPV 8.4 (7.2-11.7) fL Neut % (Auto) 93.5 H (50.0-75.0) % Lymph % (Auto) 2.6 L (20.0-40.0) % [place] % (Auto) 3.9 (0.0-10.0) % Eos % (Auto) 0.0 (0.0-4.0) % Baso % (Auto) 0.0 (0.0-2.0) % Neut # (Auto) 20.5 H (1.8-7.0) K/uL Lymph # (Auto) 0.6 L (1.0-4.3) K/uL [place] # (Auto) 0.8 (0.0-0.8) K/uL Eos # (Auto) 0.0 (0.0-0.7) K/uL Baso # (Auto) 0.0 (0.0-0.2) K/uL Neutrophils % (Manual) 93 H (50-75) % Band Neutrophils % 1 (0-2) % Lymphocytes % (Manual) 2 L (20-40) % Monocytes % (Manual) 4 (0-10) % Platelet Estimate Normal (NORMAL) PT (9.7-12.2) SECONDS INR APTT 47 H D (21-34) SECONDS Puncture Site pCO2 (35-45) mm/Hg pO2 (30-55) mm/Hg HCO3 (21-28) mmol/L ABG pH (7.35-7.45) ABG Total CO2 (22-28) mmol/L ABG O2 Saturation (95-98) % ABG Base Excess (-2.0-3.0) mmol/L Anurag Test ABG Potassium (3.6-5.2) mmol/L VBG pH (7.32-7.43) VBG pCO2 (40-60) mmHg VBG HCO3 mmol/L VBG Total CO2 (22-28) mmol/L VBG O2 Sat (Calc) (40-65) % VBG Base Excess (0.0-2.0) mmol/L VBG Potassium (3.6-5.2) mmol/L A-a O2 Difference mm/Hg Respiratory Index Glucose (75-110) mg/dl Lactate (0.7-2.1) mmol/L Vent Mode Mechanical Rate FiO2 % Tidal Volume PEEP Expiratory BiPAP Sodium 139 (132-148) mmol/L Potassium 4.1 (3.6-5.2) mmol/L Chloride 102 (98-107) mmol/L Carbon Dioxide 25 (22-30) mmol/L Anion Gap 17 (10-20) BUN 17 (9-20) mg/dL Creatinine 0.7 L (0.8-1.5) mg/dL Est GFR ( Amer) > 60 Est GFR (Non-Af Amer) > 60 Random Glucose 126 H D (75-110) mg/dL Calcium 8.5 L (8.6-10.4) mg/dl Phosphorus 4.2 (2.5-4.5) mg/dL Magnesium 1.7 (1.6-2.3) mg/dL Total Bilirubin 0.9 (0.2-1.3) mg/dL AST 57 (17-59) U/L ALT 17 L D (21-72) U/L Alkaline Phosphatase 71 (38-126) U/L Lactate Dehydrogenase (313-618) U/L Total Creatine Kinase 234 H (55-170) U/L CK-MB (Mass) 20.6 H (0.0-3.38) ng/mL Troponin I 3.9700 H* (0.00-0.120) ng/mL NT-Pro-B Natriuret Pep (0-900) pg/mL Total Protein 7.4 (6.3-8.3) g/dL Albumin 4.1 (3.5-5.0) g/dL Globulin 3.3 (2.2-3.9) gm/dL Albumin/Globulin Ratio 1.2 (1.0-2.1) Arterial Blood Potassium (3.6-5.2) mmol/L Venous Blood Potassium (3.6-5.2) mmol/L Urine Color (YELLOW) Urine Clarity (Clear) Urine pH (5.0-8.0) Ur Specific [place] (1.003-1.030) Urine Protein (NEGATIVE) mg/dL Urine Glucose (UA) (Normal) mg/dL Urine Ketones (NEGATIVE) mg/dL Urine Blood (NEGATIVE) Urine Nitrate (NEGATIVE) Urine Bilirubin (NEGATIVE) Urine Urobilinogen (0.2-1.0) mg/dL Ur Leukocyte Esterase (Negative) Isi/uL Urine WBC (Auto) (0-5) /hpf Urine RBC (Auto) (0-3) /hpf Hyaline Casts (0-2) /lpf Urine Opiates Screen (NEGATIVE) Urine Methadone Screen (NEGATIVE) Ur Barbiturates Screen (NEGATIVE) Ur Phencyclidine Scrn (NEGATIVE) Ur Amphetamines Screen (NEGATIVE) U Benzodiazepines Scrn (NEGATIVE) U Oth Cocaine Metabols (NEGATIVE) U Cannabinoids Screen (NEGATIVE) HIV 1&2 Antibody Screen (NEGATIVE) Ur L.pneumophila Ag (NEGATIVE) 11/18/18 11/18/18 11/18/18 Range/Units 22:58 22:58 22:58 WBC (4.8-10.8) K/uL RBC (4.40-5.90) Mil/uL Hgb (12.0-18.0) g/dL Hct (35.0-51.0) % MCV (80.0-94.0) fL MCH (27.0-31.0) pg MCHC (33.0-37.0) g/dL RDW (11.5-14.5) % Plt Count (130-400) K/uL MPV (7.2-11.7) fL Neut % (Auto) (50.0-75.0) % Lymph % (Auto) (20.0-40.0) % [place] % (Auto) (0.0-10.0) % Eos % (Auto) (0.0-4.0) % Baso % (Auto) (0.0-2.0) % Neut # (Auto) (1.8-7.0) K/uL Lymph # (Auto) (1.0-4.3) K/uL [place] # (Auto) (0.0-0.8) K/uL Eos # (Auto) (0.0-0.7) K/uL Baso # (Auto) (0.0-0.2) K/uL Neutrophils % (Manual) (50-75) % Band Neutrophils % (0-2) % Lymphocytes % (Manual) (20-40) % Monocytes % (Manual) (0-10) % Platelet Estimate (NORMAL) PT (9.7-12.2) SECONDS INR APTT (21-34) SECONDS Puncture Site pCO2 (35-45) mm/Hg pO2 (30-55) mm/Hg HCO3 (21-28) mmol/L ABG pH (7.35-7.45) ABG Total CO2 (22-28) mmol/L ABG O2 Saturation (95-98) % ABG Base Excess (-2.0-3.0) mmol/L Anurag Test ABG Potassium (3.6-5.2) mmol/L VBG pH (7.32-7.43) VBG pCO2 (40-60) mmHg VBG HCO3 mmol/L VBG Total CO2 (22-28) mmol/L VBG O2 Sat (Calc) (40-65) % VBG Base Excess (0.0-2.0) mmol/L VBG Potassium (3.6-5.2) mmol/L A-a O2 Difference mm/Hg Respiratory Index Glucose (75-110) mg/dl Lactate (0.7-2.1) mmol/L Vent Mode Mechanical Rate FiO2 % Tidal Volume PEEP Expiratory BiPAP Sodium (132-148) mmol/L Potassium (3.6-5.2) mmol/L Chloride (98-107) mmol/L Carbon Dioxide (22-30) mmol/L Anion Gap (10-20) BUN (9-20) mg/dL Creatinine (0.8-1.5) mg/dL Est GFR ( Amer) Est GFR (Non-Af Amer) Random Glucose (75-110) mg/dL Calcium (8.6-10.4) mg/dl Phosphorus (2.5-4.5) mg/dL Magnesium (1.6-2.3) mg/dL Total Bilirubin (0.2-1.3) mg/dL AST (17-59) U/L ALT (21-72) U/L Alkaline Phosphatase (38-126) U/L Lactate Dehydrogenase (313-618) U/L Total Creatine Kinase (55-170) U/L CK-MB (Mass) (0.0-3.38) ng/mL Troponin I (0.00-0.120) ng/mL NT-Pro-B Natriuret Pep (0-900) pg/mL Total Protein (6.3-8.3) g/dL Albumin (3.5-5.0) g/dL Globulin (2.2-3.9) gm/dL Albumin/Globulin Ratio (1.0-2.1) Arterial Blood Potassium (3.6-5.2) mmol/L Venous Blood Potassium (3.6-5.2) mmol/L Urine Color Yellow (YELLOW) Urine Clarity Clear (Clear) Urine pH 5.0 (5.0-8.0) Ur Specific [place] 1.012 (1.003-1.030) Urine Protein Negative (NEGATIVE) mg/dL Urine Glucose (UA) 1+ H (Normal) mg/dL Urine Ketones Negative (NEGATIVE) mg/dL Urine Blood Negative (NEGATIVE) Urine Nitrate Negative (NEGATIVE) Urine Bilirubin Negative (NEGATIVE) Urine Urobilinogen Normal (0.2-1.0) mg/dL Ur Leukocyte Esterase Neg (Negative) Isi/uL Urine WBC (Auto) 3 (0-5) /hpf Urine RBC (Auto) 1 (0-3) /hpf Hyaline Casts 11-20 H (0-2) /lpf Urine Opiates Screen Positive H (NEGATIVE) Urine Methadone Screen Negative (NEGATIVE) Ur Barbiturates Screen Negative (NEGATIVE) Ur Phencyclidine Scrn Negative (NEGATIVE) Ur Amphetamines Screen Negative (NEGATIVE) U Benzodiazepines Scrn Positive (NEGATIVE) U Oth Cocaine Metabols Positive H (NEGATIVE) U Cannabinoids Screen Positive H (NEGATIVE) HIV 1&2 Antibody Screen (NEGATIVE) Ur L.pneumophila Ag Negative (NEGATIVE) 11/18/18 11/18/18 11/18/18 Range/Units 21:54 20:03 19:42 WBC (4.8-10.8) K/uL RBC (4.40-5.90) Mil/uL Hgb (12.0-18.0) g/dL Hct (35.0-51.0) % MCV (80.0-94.0) fL MCH (27.0-31.0) pg MCHC (33.0-37.0) g/dL RDW (11.5-14.5) % Plt Count (130-400) K/uL MPV (7.2-11.7) fL Neut % (Auto) (50.0-75.0) % Lymph % (Auto) (20.0-40.0) % [place] % (Auto) (0.0-10.0) % Eos % (Auto) (0.0-4.0) % Baso % (Auto) (0.0-2.0) % Neut # (Auto) (1.8-7.0) K/uL Lymph # (Auto) (1.0-4.3) K/uL [place] # (Auto) (0.0-0.8) K/uL Eos # (Auto) (0.0-0.7) K/uL Baso # (Auto) (0.0-0.2) K/uL Neutrophils % (Manual) (50-75) % Band Neutrophils % (0-2) % Lymphocytes % (Manual) (20-40) % Monocytes % (Manual) (0-10) % Platelet Estimate (NORMAL) PT 13.6 H (9.7-12.2) SECONDS INR 1.2 APTT 56 H (21-34) SECONDS Puncture Site Lr pCO2 38 (35-45) mm/Hg pO2 86 (30-55) mm/Hg HCO3 22.1 (21-28) mmol/L ABG pH 7.36 (7.35-7.45) ABG Total CO2 22.7 (22-28) mmol/L ABG O2 Saturation 97.9 (95-98) % ABG Base Excess -3.6 L (-2.0-3.0) mmol/L Anurag Test Unable ABG Potassium 2.6 L (3.6-5.2) mmol/L VBG pH (7.32-7.43) VBG pCO2 (40-60) mmHg VBG HCO3 mmol/L VBG Total CO2 (22-28) mmol/L VBG O2 Sat (Calc) (40-65) % VBG Base Excess (0.0-2.0) mmol/L VBG Potassium (3.6-5.2) mmol/L A-a O2 Difference 580.0 mm/Hg Respiratory Index 6.7 Glucose 219 H (75-110) mg/dl Lactate 3.0 H (0.7-2.1) mmol/L Vent Mode Prvc Mechanical Rate 16 FiO2 100.0 % Tidal Volume 500 PEEP 8 Expiratory BiPAP Sodium 138.0 (132-148) mmol/L Potassium (3.6-5.2) mmol/L Chloride 103.0 (98-107) mmol/L Carbon Dioxide (22-30) mmol/L Anion Gap (10-20) BUN (9-20) mg/dL Creatinine (0.8-1.5) mg/dL Est GFR ( Amer) Est GFR (Non-Af Amer) Random Glucose (75-110) mg/dL Calcium (8.6-10.4) mg/dl Phosphorus (2.5-4.5) mg/dL Magnesium (1.6-2.3) mg/dL Total Bilirubin (0.2-1.3) mg/dL AST (17-59) U/L ALT (21-72) U/L Alkaline Phosphatase (38-126) U/L Lactate Dehydrogenase (313-618) U/L Total Creatine Kinase 269 H (55-170) U/L CK-MB (Mass) 13.8 H (0.0-3.38) ng/mL Troponin I 3.3400 H* (0.00-0.120) ng/mL NT-Pro-B Natriuret Pep (0-900) pg/mL Total Protein (6.3-8.3) g/dL Albumin (3.5-5.0) g/dL Globulin (2.2-3.9) gm/dL Albumin/Globulin Ratio (1.0-2.1) Arterial Blood Potassium 2.6 L (3.6-5.2) mmol/L Venous Blood Potassium (3.6-5.2) mmol/L Urine Color (YELLOW) Urine Clarity (Clear) Urine pH (5.0-8.0) Ur Specific [place] (1.003-1.030) Urine Protein (NEGATIVE) mg/dL Urine Glucose (UA) (Normal) mg/dL Urine Ketones (NEGATIVE) mg/dL Urine Blood (NEGATIVE) Urine Nitrate (NEGATIVE) Urine Bilirubin (NEGATIVE) Urine Urobilinogen (0.2-1.0) mg/dL Ur Leukocyte Esterase (Negative) Isi/uL Urine WBC (Auto) (0-5) /hpf Urine RBC (Auto) (0-3) /hpf Hyaline Casts (0-2) /lpf Urine Opiates Screen (NEGATIVE) Urine Methadone Screen (NEGATIVE) Ur Barbiturates Screen (NEGATIVE) Ur Phencyclidine Scrn (NEGATIVE) Ur Amphetamines Screen (NEGATIVE) U Benzodiazepines Scrn (NEGATIVE) U Oth Cocaine Metabols (NEGATIVE) U Cannabinoids Screen (NEGATIVE) HIV 1&2 Antibody Screen (NEGATIVE) Ur L.pneumophila Ag (NEGATIVE) 11/18/18 11/18/18 11/18/18 Range/Units 18:40 17:26 16:39 WBC (4.8-10.8) K/uL RBC (4.40-5.90) Mil/uL Hgb (12.0-18.0) g/dL Hct (35.0-51.0) % MCV (80.0-94.0) fL MCH (27.0-31.0) pg MCHC (33.0-37.0) g/dL RDW (11.5-14.5) % Plt Count (130-400) K/uL MPV (7.2-11.7) fL Neut % (Auto) (50.0-75.0) % Lymph % (Auto) (20.0-40.0) % [place] % (Auto) (0.0-10.0) % Eos % (Auto) (0.0-4.0) % Baso % (Auto) (0.0-2.0) % Neut # (Auto) (1.8-7.0) K/uL Lymph # (Auto) (1.0-4.3) K/uL [place] # (Auto) (0.0-0.8) K/uL Eos # (Auto) (0.0-0.7) K/uL Baso # (Auto) (0.0-0.2) K/uL Neutrophils % (Manual) (50-75) % Band Neutrophils % (0-2) % Lymphocytes % (Manual) (20-40) % Monocytes % (Manual) (0-10) % Platelet Estimate (NORMAL) PT (9.7-12.2) SECONDS INR APTT (21-34) SECONDS Puncture Site pCO2 (35-45) mm/Hg pO2 20 L (30-55) mm/Hg HCO3 (21-28) mmol/L ABG pH (7.35-7.45) ABG Total CO2 (22-28) mmol/L ABG O2 Saturation (95-98) % ABG Base Excess (-2.0-3.0) mmol/L Anurag Test ABG Potassium (3.6-5.2) mmol/L VBG pH 7.38 (7.32-7.43) VBG pCO2 44 (40-60) mmHg VBG HCO3 23.5 mmol/L VBG Total CO2 27.4 (22-28) mmol/L VBG O2 Sat (Calc) 30.7 L (40-65) % VBG Base Excess 0.5 (0.0-2.0) mmol/L VBG Potassium 3.3 L (3.6-5.2) mmol/L A-a O2 Difference mm/Hg Respiratory Index Glucose 177 H (75-110) mg/dl Lactate 4.0 H* (0.7-2.1) mmol/L Vent Mode Mechanical Rate FiO2 100.0 % Tidal Volume PEEP Expiratory BiPAP 5 Sodium 138.0 (132-148) mmol/L Potassium (3.6-5.2) mmol/L Chloride 99.0 (98-107) mmol/L Carbon Dioxide (22-30) mmol/L Anion Gap (10-20) BUN (9-20) mg/dL Creatinine (0.8-1.5) mg/dL Est GFR ( Amer) Est GFR (Non-Af Amer) Random Glucose (75-110) mg/dL Calcium (8.6-10.4) mg/dl Phosphorus (2.5-4.5) mg/dL Magnesium (1.6-2.3) mg/dL Total Bilirubin (0.2-1.3) mg/dL AST (17-59) U/L ALT (21-72) U/L Alkaline Phosphatase (38-126) U/L Lactate Dehydrogenase 628 H (313-618) U/L Total Creatine Kinase (55-170) U/L CK-MB (Mass) (0.0-3.38) ng/mL Troponin I (0.00-0.120) ng/mL NT-Pro-B Natriuret Pep (0-900) pg/mL Total Protein (6.3-8.3) g/dL Albumin (3.5-5.0) g/dL Globulin (2.2-3.9) gm/dL Albumin/Globulin Ratio (1.0-2.1) Arterial Blood Potassium (3.6-5.2) mmol/L Venous Blood Potassium 3.3 L (3.6-5.2) mmol/L Urine Color (YELLOW) Urine Clarity (Clear) Urine pH (5.0-8.0) Ur Specific [place] (1.003-1.030) Urine Protein (NEGATIVE) mg/dL Urine Glucose (UA) (Normal) mg/dL Urine Ketones (NEGATIVE) mg/dL Urine Blood (NEGATIVE) Urine Nitrate (NEGATIVE) Urine Bilirubin (NEGATIVE) Urine Urobilinogen (0.2-1.0) mg/dL Ur Leukocyte Esterase (Negative) Isi/uL Urine WBC (Auto) (0-5) /hpf Urine RBC (Auto) (0-3) /hpf Hyaline Casts (0-2) /lpf Urine Opiates Screen (NEGATIVE) Urine Methadone Screen (NEGATIVE) Ur Barbiturates Screen (NEGATIVE) Ur Phencyclidine Scrn (NEGATIVE) Ur Amphetamines Screen (NEGATIVE) U Benzodiazepines Scrn (NEGATIVE) U Oth Cocaine Metabols (NEGATIVE) U Cannabinoids Screen (NEGATIVE) HIV 1&2 Antibody Screen Negative (NEGATIVE) Ur L.pneumophila Ag (NEGATIVE) 11/18/18 11/18/18 Range/Units 15:42 15:42 WBC 17.8 H (4.8-10.8) K/uL RBC 5.83 (4.40-5.90) Mil/uL Hgb 16.2 (12.0-18.0) g/dL Hct 49.6 (35.0-51.0) % MCV 85.0 (80.0-94.0) fL MCH 27.9 (27.0-31.0) pg MCHC 32.8 L (33.0-37.0) g/dL RDW 14.2 (11.5-14.5) % Plt Count 441 H (130-400) K/uL MPV 8.1 (7.2-11.7) fL Neut % (Auto) 91.2 H (50.0-75.0) % Lymph % (Auto) 3.8 L (20.0-40.0) % [place] % (Auto) 4.7 (0.0-10.0) % Eos % (Auto) 0.1 (0.0-4.0) % Baso % (Auto) 0.2 (0.0-2.0) % Neut # (Auto) 16.3 H (1.8-7.0) K/uL Lymph # (Auto) 0.7 L (1.0-4.3) K/uL [place] # (Auto) 0.8 (0.0-0.8) K/uL Eos # (Auto) 0.0 (0.0-0.7) K/uL Baso # (Auto) 0.0 (0.0-0.2) K/uL Neutrophils % (Manual) 93 H (50-75) % Band Neutrophils % (0-2) % Lymphocytes % (Manual) 4 L (20-40) % Monocytes % (Manual) 3 (0-10) % Platelet Estimate Slightly increased H (NORMAL) PT (9.7-12.2) SECONDS INR APTT (21-34) SECONDS Puncture Site pCO2 (35-45) mm/Hg pO2 (30-55) mm/Hg HCO3 (21-28) mmol/L ABG pH (7.35-7.45) ABG Total CO2 (22-28) mmol/L ABG O2 Saturation (95-98) % ABG Base Excess (-2.0-3.0) mmol/L Anurag Test ABG Potassium (3.6-5.2) mmol/L VBG pH (7.32-7.43) VBG pCO2 (40-60) mmHg VBG HCO3 mmol/L VBG Total CO2 (22-28) mmol/L VBG O2 Sat (Calc) (40-65) % VBG Base Excess (0.0-2.0) mmol/L VBG Potassium (3.6-5.2) mmol/L A-a O2 Difference mm/Hg Respiratory Index Glucose (75-110) mg/dl Lactate (0.7-2.1) mmol/L Vent Mode Mechanical Rate FiO2 % Tidal Volume PEEP Expiratory BiPAP Sodium 137 (132-148) mmol/L Potassium 3.5 L (3.6-5.2) mmol/L Chloride 101 (98-107) mmol/L Carbon Dioxide 26 (22-30) mmol/L Anion Gap 14 (10-20) BUN 14 (9-20) mg/dL Creatinine 0.7 L (0.8-1.5) mg/dL Est GFR ( Amer) > 60 Est GFR (Non-Af Amer) > 60 Random Glucose 167 H (75-110) mg/dL Calcium 9.1 (8.6-10.4) mg/dl Phosphorus (2.5-4.5) mg/dL Magnesium (1.6-2.3) mg/dL Total Bilirubin 1.1 (0.2-1.3) mg/dL AST 53 (17-59) U/L ALT 12 L (21-72) U/L Alkaline Phosphatase 79 (38-126) U/L Lactate Dehydrogenase (313-618) U/L Total Creatine Kinase 220 H (55-170) U/L CK-MB (Mass) 11.7 H (0.0-3.38) ng/mL Troponin I 3.3300 H* (0.00-0.120) ng/mL NT-Pro-B Natriuret Pep 95648 H (0-900) pg/mL Total Protein 7.6 (6.3-8.3) g/dL Albumin 4.1 (3.5-5.0) g/dL Globulin 3.4 (2.2-3.9) gm/dL Albumin/Globulin Ratio 1.2 (1.0-2.1) Arterial Blood Potassium (3.6-5.2) mmol/L Venous Blood Potassium (3.6-5.2) mmol/L Urine Color (YELLOW) Urine Clarity (Clear) Urine pH (5.0-8.0) Ur Specific [place] (1.003-1.030) Urine Protein (NEGATIVE) mg/dL Urine Glucose (UA) (Normal) mg/dL Urine Ketones (NEGATIVE) mg/dL Urine Blood (NEGATIVE) Urine Nitrate (NEGATIVE) Urine Bilirubin (NEGATIVE) Urine Urobilinogen (0.2-1.0) mg/dL Ur Leukocyte Esterase (Negative) Isi/uL Urine WBC (Auto) (0-5) /hpf Urine RBC (Auto) (0-3) /hpf Hyaline Casts (0-2) /lpf Urine Opiates Screen (NEGATIVE) Urine Methadone Screen (NEGATIVE) Ur Barbiturates Screen (NEGATIVE) Ur Phencyclidine Scrn (NEGATIVE) Ur Amphetamines Screen (NEGATIVE) U Benzodiazepines Scrn (NEGATIVE) U Oth Cocaine Metabols (NEGATIVE) U Cannabinoids Screen (NEGATIVE) HIV 1&2 Antibody Screen (NEGATIVE) Ur L.pneumophila Ag (NEGATIVE) Laboratory Results - last 24 hr 11/18/18 11/18/18 11/18/18 15:42 15:42 16:39 WBC 17.8 H RBC 5.83 Hgb 16.2 Hct 49.6 MCV 85.0 MCH 27.9 MCHC 32.8 L RDW 14.2 Plt Count 441 H MPV 8.1 Neut % (Auto) 91.2 H Lymph % (Auto) 3.8 L [place] % (Auto) 4.7 Eos % (Auto) 0.1 Baso % (Auto) 0.2 Neut # (Auto) 16.3 H Lymph # (Auto) 0.7 L [place] # (Auto) 0.8 Eos # (Auto) 0.0 Baso # (Auto) 0.0 Neutrophils % (Manual) 93 H Band Neutrophils % Lymphocytes % (Manual) 4 L Monocytes % (Manual) 3 Platelet Estimate Slightly increased H PT INR APTT Puncture Site pCO2 pO2 HCO3 ABG pH ABG Total CO2 ABG O2 Saturation ABG Base Excess Anurag Test ABG Potassium VBG pH VBG pCO2 VBG HCO3 VBG Total CO2 VBG O2 Sat (Calc) VBG Base Excess VBG Potassium A-a O2 Difference Respiratory Index Glucose Lactate Vent Mode Mechanical Rate FiO2 Tidal Volume PEEP Expiratory BiPAP Sodium 137 Potassium 3.5 L Chloride 101 Carbon Dioxide 26 Anion Gap 14 BUN 14 Creatinine 0.7 L Est GFR ( Amer) > 60 Est GFR (Non-Af Amer) > 60 Random Glucose 167 H Calcium 9.1 Phosphorus Magnesium Total Bilirubin 1.1 AST 53 ALT 12 L Alkaline Phosphatase 79 Lactate Dehydrogenase 628 H Total Creatine Kinase 220 H CK-MB (Mass) 11.7 H Troponin I 3.3300 H* NT-Pro-B Natriuret Pep 39427 H Total Protein 7.6 Albumin 4.1 Globulin 3.4 Albumin/Globulin Ratio 1.2 Arterial Blood Potassium Venous Blood Potassium Urine Color Urine Clarity Urine pH Ur Specific [place] Urine Protein Urine Glucose (UA) Urine Ketones Urine Blood Urine Nitrate Urine Bilirubin Urine Urobilinogen Ur Leukocyte Esterase Urine WBC (Auto) Urine RBC (Auto) Hyaline Casts Urine Opiates Screen Urine Methadone Screen Ur Barbiturates Screen Ur Phencyclidine Scrn Ur Amphetamines Screen U Benzodiazepines Scrn U Oth Cocaine Metabols U Cannabinoids Screen HIV 1&2 Antibody Screen Ur L.pneumophila Ag 11/18/18 11/18/18 11/18/18 17:26 18:40 19:42 WBC RBC Hgb Hct MCV MCH MCHC RDW Plt Count MPV Neut % (Auto) Lymph % (Auto) [place] % (Auto) Eos % (Auto) Baso % (Auto) Neut # (Auto) Lymph # (Auto) [place] # (Auto) Eos # (Auto) Baso # (Auto) Neutrophils % (Manual) Band Neutrophils % Lymphocytes % (Manual) Monocytes % (Manual) Platelet Estimate PT INR APTT Puncture Site pCO2 pO2 20 L HCO3 ABG pH ABG Total CO2 ABG O2 Saturation ABG Base Excess Anurag Test ABG Potassium VBG pH 7.38 VBG pCO2 44 VBG HCO3 23.5 VBG Total CO2 27.4 VBG O2 Sat (Calc) 30.7 L VBG Base Excess 0.5 VBG Potassium 3.3 L A-a O2 Difference Respiratory Index Glucose 177 H Lactate 4.0 H* Vent Mode Mechanical Rate FiO2 100.0 Tidal Volume PEEP Expiratory BiPAP 5 Sodium 138.0 Potassium Chloride 99.0 Carbon Dioxide Anion Gap BUN Creatinine Est GFR ( Amer) Est GFR (Non-Af Amer) Random Glucose Calcium Phosphorus Magnesium Total Bilirubin AST ALT Alkaline Phosphatase Lactate Dehydrogenase Total Creatine Kinase 269 H CK-MB (Mass) 13.8 H Troponin I 3.3400 H* NT-Pro-B Natriuret Pep Total Protein Albumin Globulin Albumin/Globulin Ratio Arterial Blood Potassium Venous Blood Potassium 3.3 L Urine Color Urine Clarity Urine pH Ur Specific [place] Urine Protein Urine Glucose (UA) Urine Ketones Urine Blood Urine Nitrate Urine Bilirubin Urine Urobilinogen Ur Leukocyte Esterase Urine WBC (Auto) Urine RBC (Auto) Hyaline Casts Urine Opiates Screen Urine Methadone Screen Ur Barbiturates Screen Ur Phencyclidine Scrn Ur Amphetamines Screen U Benzodiazepines Scrn U Oth Cocaine Metabols U Cannabinoids Screen HIV 1&2 Antibody Screen Negative Ur L.pneumophila Ag 11/18/18 11/18/18 11/18/18 20:03 21:54 22:58 WBC RBC Hgb Hct MCV MCH MCHC RDW Plt Count MPV Neut % (Auto) Lymph % (Auto) [place] % (Auto) Eos % (Auto) Baso % (Auto) Neut # (Auto) Lymph # (Auto) [place] # (Auto) Eos # (Auto) Baso # (Auto) Neutrophils % (Manual) Band Neutrophils % Lymphocytes % (Manual) Monocytes % (Manual) Platelet Estimate PT 13.6 H INR 1.2 APTT 56 H Puncture Site Lr pCO2 38 pO2 86 HCO3 22.1 ABG pH 7.36 ABG Total CO2 22.7 ABG O2 Saturation 97.9 ABG Base Excess -3.6 L Anurag Test Unable ABG Potassium 2.6 L VBG pH VBG pCO2 VBG HCO3 VBG Total CO2 VBG O2 Sat (Calc) VBG Base Excess VBG Potassium A-a O2 Difference 580.0 Respiratory Index 6.7 Glucose 219 H Lactate 3.0 H Vent Mode Prvc Mechanical Rate 16 FiO2 100.0 Tidal Volume 500 PEEP 8 Expiratory BiPAP Sodium 138.0 Potassium Chloride 103.0 Carbon Dioxide Anion Gap BUN Creatinine Est GFR ( Amer) Est GFR (Non-Af Amer) Random Glucose Calcium Phosphorus Magnesium Total Bilirubin AST ALT Alkaline Phosphatase Lactate Dehydrogenase Total Creatine Kinase CK-MB (Mass) Troponin I NT-Pro-B Natriuret Pep Total Protein Albumin Globulin Albumin/Globulin Ratio Arterial Blood Potassium 2.6 L Venous Blood Potassium Urine Color Urine Clarity Urine pH Ur Specific [place] Urine Protein Urine Glucose (UA) Urine Ketones Urine Blood Urine Nitrate Urine Bilirubin Urine Urobilinogen Ur Leukocyte Esterase Urine WBC (Auto) Urine RBC (Auto) Hyaline Casts Urine Opiates Screen Positive H Urine Methadone Screen Negative Ur Barbiturates Screen Negative Ur Phencyclidine Scrn Negative Ur Amphetamines Screen Negative U Benzodiazepines Scrn Positive U Oth Cocaine Metabols Positive H U Cannabinoids Screen Positive H HIV 1&2 Antibody Screen Ur L.pneumophila Ag 11/18/18 11/18/18 11/19/18 22:58 22:58 03:15 WBC 22.0 H RBC 6.13 H Hgb 17.0 Hct 52.3 H MCV 85.3 MCH 27.7 MCHC 32.5 L RDW 14.5 Plt Count 371 MPV 8.4 Neut % (Auto) 93.5 H Lymph % (Auto) 2.6 L [place] % (Auto) 3.9 Eos % (Auto) 0.0 Baso % (Auto) 0.0 Neut # (Auto) 20.5 H Lymph # (Auto) 0.6 L [place] # (Auto) 0.8 Eos # (Auto) 0.0 Baso # (Auto) 0.0 Neutrophils % (Manual) 93 H Band Neutrophils % 1 Lymphocytes % (Manual) 2 L Monocytes % (Manual) 4 Platelet Estimate Normal PT INR APTT Puncture Site pCO2 pO2 HCO3 ABG pH ABG Total CO2 ABG O2 Saturation ABG Base Excess Anurag Test ABG Potassium VBG pH VBG pCO2 VBG HCO3 VBG Total CO2 VBG O2 Sat (Calc) VBG Base Excess VBG Potassium A-a O2 Difference Respiratory Index Glucose Lactate Vent Mode Mechanical Rate FiO2 Tidal Volume PEEP Expiratory BiPAP Sodium Potassium Chloride Carbon Dioxide Anion Gap BUN Creatinine Est GFR ( Amer) Est GFR (Non-Af Amer) Random Glucose Calcium Phosphorus Magnesium Total Bilirubin AST ALT Alkaline Phosphatase Lactate Dehydrogenase Total Creatine Kinase CK-MB (Mass) Troponin I NT-Pro-B Natriuret Pep Total Protein Albumin Globulin Albumin/Globulin Ratio Arterial Blood Potassium Venous Blood Potassium Urine Color Yellow Urine Clarity Clear Urine pH 5.0 Ur Specific [place] 1.012 Urine Protein Negative Urine Glucose (UA) 1+ H Urine Ketones Negative Urine Blood Negative Urine Nitrate Negative Urine Bilirubin Negative Urine Urobilinogen Normal Ur Leukocyte Esterase Neg Urine WBC (Auto) 3 Urine RBC (Auto) 1 Hyaline Casts 11-20 H Urine Opiates Screen Urine Methadone Screen Ur Barbiturates Screen Ur Phencyclidine Scrn Ur Amphetamines Screen U Benzodiazepines Scrn U Oth Cocaine Metabols U Cannabinoids Screen HIV 1&2 Antibody Screen Ur L.pneumophila Ag Negative 11/19/18 11/19/18 11/19/18 03:15 03:15 05:18 WBC RBC Hgb Hct MCV MCH MCHC RDW Plt Count MPV Neut % (Auto) Lymph % (Auto) [place] % (Auto) Eos % (Auto) Baso % (Auto) Neut # (Auto) Lymph # (Auto) [place] # (Auto) Eos # (Auto) Baso # (Auto) Neutrophils % (Manual) Band Neutrophils % Lymphocytes % (Manual) Monocytes % (Manual) Platelet Estimate PT INR APTT 47 H D Puncture Site L rad pCO2 38 pO2 246 H HCO3 24.8 ABG pH 7.41 ABG Total CO2 25.3 ABG O2 Saturation 100.7 H ABG Base Excess -0.3 Anurag Test Pos ABG Potassium 3.9 VBG pH VBG pCO2 VBG HCO3 VBG Total CO2 VBG O2 Sat (Calc) VBG Base Excess VBG Potassium A-a O2 Difference 420.0 Respiratory Index 1.7 Glucose 127 H Lactate 1.7 Vent Mode Prvc Mechanical Rate 16 FiO2 100.0 Tidal Volume 500 PEEP 8 Expiratory BiPAP Sodium 139 138.0 Potassium 4.1 Chloride 102 106.0 Carbon Dioxide 25 Anion Gap 17 BUN 17 Creatinine 0.7 L Est GFR ( Amer) > 60 Est GFR (Non-Af Amer) > 60 Random Glucose 126 H D Calcium 8.5 L Phosphorus 4.2 Magnesium 1.7 Total Bilirubin 0.9 AST 57 ALT 17 L D Alkaline Phosphatase 71 Lactate Dehydrogenase Total Creatine Kinase 234 H CK-MB (Mass) 20.6 H Troponin I 3.9700 H* NT-Pro-B Natriuret Pep Total Protein 7.4 Albumin 4.1 Globulin 3.3 Albumin/Globulin Ratio 1.2 Arterial Blood Potassium 3.9 Venous Blood Potassium Urine Color Urine Clarity Urine pH Ur Specific [place] Urine Protein Urine Glucose (UA) Urine Ketones Urine Blood Urine Nitrate Urine Bilirubin Urine Urobilinogen Ur Leukocyte Esterase Urine WBC (Auto) Urine RBC (Auto) Hyaline Casts Urine Opiates Screen Urine Methadone Screen Ur Barbiturates Screen Ur Phencyclidine Scrn Ur Amphetamines Screen U Benzodiazepines Scrn U Oth Cocaine Metabols U Cannabinoids Screen HIV 1&2 Antibody Screen Ur L.pneumophila Ag 11/19/18 11/19/18 10:09 10:09 WBC RBC Hgb Hct MCV MCH MCHC RDW Plt Count MPV Neut % (Auto) Lymph % (Auto) [place] % (Auto) Eos % (Auto) Baso % (Auto) Neut # (Auto) Lymph # (Auto) [place] # (Auto) Eos # (Auto) Baso # (Auto) Neutrophils % (Manual) Band Neutrophils % Lymphocytes % (Manual) Monocytes % (Manual) Platelet Estimate PT INR APTT 39 H D Puncture Site pCO2 pO2 HCO3 ABG pH ABG Total CO2 ABG O2 Saturation ABG Base Excess Anurag Test ABG Potassium VBG pH VBG pCO2 VBG HCO3 VBG Total CO2 VBG O2 Sat (Calc) VBG Base Excess VBG Potassium A-a O2 Difference Respiratory Index Glucose Lactate Vent Mode Mechanical Rate FiO2 Tidal Volume PEEP Expiratory BiPAP Sodium Potassium Chloride Carbon Dioxide Anion Gap BUN Creatinine Est GFR ( Amer) Est GFR (Non-Af Amer) Random Glucose Calcium Phosphorus Magnesium Total Bilirubin AST ALT Alkaline Phosphatase Lactate Dehydrogenase Total Creatine Kinase 230 H CK-MB (Mass) 14.2 H Troponin I 3.5300 H* NT-Pro-B Natriuret Pep Total Protein Albumin Globulin Albumin/Globulin Ratio Arterial Blood Potassium Venous Blood Potassium Urine Color Urine Clarity Urine pH Ur Specific [place] Urine Protein Urine Glucose (UA) Urine Ketones Urine Blood Urine Nitrate Urine Bilirubin Urine Urobilinogen Ur Leukocyte Esterase Urine WBC (Auto) Urine RBC (Auto) Hyaline Casts Urine Opiates Screen Urine Methadone Screen Ur Barbiturates Screen Ur Phencyclidine Scrn Ur Amphetamines Screen U Benzodiazepines Scrn U Oth Cocaine Metabols U Cannabinoids Screen HIV 1&2 Antibody Screen Ur L.pneumophila Ag Radiology Impressions: Radiology Impressions Chest X-Ray 11/18/18 15:11 IMPRESSION: Patchy bilateral airspace opacities and interstitial edema/infection. Chest CT 11/18/18 16:23 Impression: Patchy bilateral ground-glass airspace opacities upper lobe predominance; indeterminate etiology. Correlate clinically. Considerations include but not limited to atypical infection, pulmonary edema, hemorrhage. Recommend follow-up upon completion of treatment for acute symptoms order to assess for complete resolution. Heart size appears top normal. Trace pericardial effusion. Dense coronary artery calcifications. Findings discussed with Dr. Leone on 11/18/18 at 5:28 p.m. Chest X-Ray 11/18/18 20:35 IMPRESSION: ETT NGT as above. Interval progression diffuse bilateral infiltrates. Findings could represent diffuse bilateral pneumonia and/or pulmonary venous congestion EKG/Cardiology Studies: Cardiology / EKG Studies 11/18/18 15:11 ELECTROCARDIOGRAM Stat Comment: BED12 Mode Of Transportation: BED Reason For Exam: SOB 11/18/18 16:36 EKG [ELECTROCARDIOGRAM] Stat Comment: BED5 Mode Of Transportation: STRETCHER Reason For Exam: REPEAT Review of Systems - Review of Systems Systems not reviewed;Unavailable: Intubated Critical Care Progress Note - Ventilator Checklist Head of Bed 30 Degrees: Yes Daily Sedation Vacation: Yes Daily Assessment of Readiness to Wean: Yes Daily Spontaneous Breathing Trial: Yes PUD Prophalyxis: Yes DVT Prophylaxis: Yes Oral Care with Chlorhexidine Gluconate {CHG}: Yes - Vent Settings MODE:: PRVC TIDAL VOLUME:: 500 RESP RATE:: 16 FIO2:: 90 PEEP:: 8 - Extremities/Vascular Does the Patient have a Hatch Catheter?: Yes Does the Patient need a Hatch Catheter?: Yes Catheter Insertion Criteria: Need for accurate measurement of output in critically ill patient - Restraints Justification for Restraints: High risk for self extubation, High risk for removing IV access - Prophylaxis GI Prophylaxis GI: PPI - Prophylaxis DVT Prophylaxis DVT: Heparin SQ - Nutrition Nutrition: Nutrition Category Date Time Status NPO Diet [DIET] Diets 11/19/18 Breakfast Active Assessment/Plan - Assessment and Plan (Free Text) Assessment: Patient is a 53 yo male w/ PMH of chronic pain, 1x episode of PNA admitted to ICU for shortness of breath, elevated troponins, bnp, and white count. Patient admits to heavy drinking, occasional marijuana use. Positive cocaine uds Neuro Intubated and on propofol drip/versed drip Not awake or alert Pulm Intubated and on vent PRVC maintain spo2 >92 % Cxray and Chest CT shows bilateral pulmonary edema and bilateral infiltrates with bilateral pleural effusions (small) Elevated BNP Solumedrol, Duoneb Asa CV Elevated troponins; 3rd one downtrending Dr. Glover consulted- plan for cardiac cath today Heparin drip; Aspirin, Lasix Likely ID from cocaine use Echo pending GI no active issues Protonix Tube feedings pulmocare Renal no acitve issues Repeat CMP in AM ID Elevated white blood cell count b/l infiltrates seen on chest xray cx pending HIV negative; UDS positive for MJ, cocaine, opiates Procal pending Azithromycin Zosyn Disposition: Intubated overnight, pending cardiac cath, Lasix for pulmonary toilet; Daily cxr/abg to determine extubation plan, Education about cessation of cocaine DVT ppx: Hep drip GI ppx: Protonix PGY-1 [facility] d/w Dr. Rome <Gabe Rome S - Last Filed: 11/19/18 16:25> CCU Objective - Vital Signs / Intake & Output Vital Signs (Last 4 hours): Vital Signs Pulse Resp BP Pulse Ox 11/19/18 15:00 120 H 27 H 100 11/19/18 14:56 125 H 19 120/87 100 11/19/18 14:30 121 H 27 H 11/19/18 14:26 121 H 27 H 120/87 100 11/19/18 14:00 123 H 19 100 11/19/18 13:55 121 H 25 H 126/96 H 100 11/19/18 13:25 122 H 24 118/86 100 11/19/18 13:00 126 H 29 H 11/19/18 12:55 123 H 27 H 114/86 100 11/19/18 12:30 121 H 27 H 11/19/18 12:25 123 H 28 H 112/83 100 Intake and Output (Last 8hrs): Intake & Output 11/19/18 11/19/18 11/19/18 06:59 14:59 22:59 Intake Total 637.4 860.6 37.4 Output Total 780 795 100 Balance -142.6 65.6 -62.6 Weight 214 lb 11.684 oz Intake: IV 182 272 Intake, IV Amount 355.4 588.6 37.4 Left AC 2 300 Left forearm 215.4 140.0 17.5 Right Wrist 44 45 6 left AC 96 103.6 13.9 Oral 0 0 0 Albumin 100 Output: Urine 780 795 100 Urethral (Hatch) 780 795 100 Other: # Bowel Movements 0 0 - Medications Active Medications: Active Medications Generic Name Dose Route Start Last Admin Trade Name Wagnerq PRN Reason Stop Dose Admin Acetaminophen 650 mg 11/18/18 18:37 Tylenol 325mg Tab PO Q6 PRN pain+fever Albuterol/Ipratropium 3 ml 11/18/18 20:00 11/19/18 14:14 Duoneb 3 Mg/0.5 Mg (3 Ml) Ud INH 3 ml RQ4 NIKITA Administration Aspirin 81 mg 11/19/18 10:00 11/19/18 09:25 Aspirin Chewable PO 81 mg DAILY NIKITA Administration Furosemide 40 mg 11/18/18 23:15 11/19/18 10:39 Lasix IVP 11/20/18 11:16 40 mg Q12H NIKITA Administration Azithromycin 500 mg/ Sodium 250 mls @ 250 mls/hr 11/19/18 10:00 11/19/18 09:25 Chloride IVPB 250 mls/hr DAILY NIKITA Administration Protocol Piperacillin Sod/Tazobactam Sod 3.375 gm in 50 mls @ 100 mls/hr 11/18/18 19:00 11/19/18 10:40 Zosyn 3.375 Gm Iv Premix IVPB 100 mls/hr Q8H NIKITA Administration Protocol Propofol 1,000 mg in 100 mls @ 2.994 mls/hr 11/18/18 20:32 11/19/18 12:28 Diprivan IV 29.22 mcg/kg/min .Q24H PRN 17.5 mls/hr TITRATE PER MD ORDER Administration Protocol 5 MCG/KG/MIN Midazolam HCl 100 mg/ Sodium 100 mls @ 2 mls/hr 11/18/18 21:00 11/19/18 10:00 Chloride IV 0.06 mg/kg/hr .Q24H NIKITA 6 mls/hr Titration Protocol 0.02 MG/KG/HR Heparin Sodium/Sodium Chloride 25,000 units in 250 mls @ 11.688 mls/hr 11/19/18 15:00 11/19/18 14:59 Heparin 63767 Units/250ml 1/2 Normal Saline IV 12 units/kg/hr .[id number] PRN 11.688 mls/hr ADJUST RATE PER PROTOCOL Administration Protocol 12 UNITS/KG/HR Influenza Virus Vaccine 60 mcg 11/20/18 10:00 Flucelvax Quad [id number] Syr IM 11/20/18 10:01 .ONCE ONE Pantoprazole Sodium 40 mg 11/19/18 10:00 11/19/18 10:39 Protonix Inj IVP 40 mg DAILY NIKITA Administration Pneumococcal Polyvalent Vaccine 0.5 ml 11/21/18 10:00 Pneumovax 23 Vaccine IM 11/21/18 10:01 .ONCE ONE - Patient Studies Lab Studies: Microbiology Studies 11/19/18 05:20 Gram Stain - Final Sputum Lab Studies 11/19/18 11/19/18 11/19/18 Range/Units 10:09 10:09 10:09 WBC (4.8-10.8) K/uL RBC (4.40-5.90) Mil/uL Hgb (12.0-18.0) g/dL Hct (35.0-51.0) % MCV (80.0-94.0) fL MCH (27.0-31.0) pg MCHC (33.0-37.0) g/dL RDW (11.5-14.5) % Plt Count (130-400) K/uL MPV (7.2-11.7) fL Neut % (Auto) (50.0-75.0) % Lymph % (Auto) (20.0-40.0) % [place] % (Auto) (0.0-10.0) % Eos % (Auto) (0.0-4.0) % Baso % (Auto) (0.0-2.0) % Neut # (Auto) (1.8-7.0) K/uL Lymph # (Auto) (1.0-4.3) K/uL [place] # (Auto) (0.0-0.8) K/uL Eos # (Auto) (0.0-0.7) K/uL Baso # (Auto) (0.0-0.2) K/uL Neutrophils % (Manual) (50-75) % Band Neutrophils % (0-2) % Lymphocytes % (Manual) (20-40) % Monocytes % (Manual) (0-10) % Platelet Estimate (NORMAL) PT (9.7-12.2) SECONDS INR APTT 39 H D (21-34) SECONDS Puncture Site pCO2 (35-45) mm/Hg pO2 (30-55) mm/Hg HCO3 (21-28) mmol/L ABG pH (7.35-7.45) ABG Total CO2 (22-28) mmol/L ABG O2 Saturation (95-98) % ABG Base Excess (-2.0-3.0) mmol/L Anurag Test ABG Potassium (3.6-5.2) mmol/L VBG pH (7.32-7.43) VBG pCO2 (40-60) mmHg VBG HCO3 mmol/L VBG Total CO2 (22-28) mmol/L VBG O2 Sat (Calc) (40-65) % VBG Base Excess (0.0-2.0) mmol/L VBG Potassium (3.6-5.2) mmol/L A-a O2 Difference mm/Hg Respiratory Index Sodium (132-148) mmol/l Chloride (98-107) mmol/L Glucose (75-110) mg/dl Lactate (0.7-2.1) mmol/L Vent Mode Mechanical Rate FiO2 % Tidal Volume PEEP Expiratory BiPAP Potassium (3.6-5.2) mmol/L Carbon Dioxide (22-30) mmol/L Anion Gap (10-20) BUN (9-20) mg/dL Creatinine (0.8-1.5) mg/dL Est GFR ( Amer) Est GFR (Non-Af Amer) Random Glucose (75-110) mg/dL Calcium (8.6-10.4) mg/dl Phosphorus (2.5-4.5) mg/dL Magnesium (1.6-2.3) mg/dL Total Bilirubin (0.2-1.3) mg/dL AST (17-59) U/L ALT (21-72) U/L Alkaline Phosphatase (38-126) U/L Lactate Dehydrogenase (313-618) U/L Total Creatine Kinase 230 H (55-170) U/L CK-MB (Mass) 14.2 H (0.0-3.38) ng/mL Troponin I 3.5300 H* (0.00-0.120) ng/mL NT-Pro-B Natriuret Pep (0-900) pg/mL Total Protein (6.3-8.3) g/dL Albumin (3.5-5.0) g/dL Globulin (2.2-3.9) gm/dL Albumin/Globulin Ratio (1.0-2.1) Procalcitonin 0.30 (0.19-0.49) NG/ML Arterial Blood Potassium (3.6-5.2) mmol/L Venous Blood Potassium (3.6-5.2) mmol/L Urine Color (YELLOW) Urine Clarity (Clear) Urine pH (5.0-8.0) Ur Specific [place] (1.003-1.030) Urine Protein (NEGATIVE) mg/dL Urine Glucose (UA) (Normal) mg/dL Urine Ketones (NEGATIVE) mg/dL Urine Blood (NEGATIVE) Urine Nitrate (NEGATIVE) Urine Bilirubin (NEGATIVE) Urine Urobilinogen (0.2-1.0) mg/dL Ur Leukocyte Esterase (Negative) Isi/uL Urine WBC (Auto) (0-5) /hpf Urine RBC (Auto) (0-3) /hpf Hyaline Casts (0-2) /lpf Urine Opiates Screen (NEGATIVE) Urine Methadone Screen (NEGATIVE) Ur Barbiturates Screen (NEGATIVE) Ur Phencyclidine Scrn (NEGATIVE) Ur Amphetamines Screen (NEGATIVE) U Benzodiazepines Scrn (NEGATIVE) U Oth Cocaine Metabols (NEGATIVE) U Cannabinoids Screen (NEGATIVE) HIV 1&2 Antibody Screen (NEGATIVE) Ur L.pneumophila Ag (NEGATIVE) 11/19/18 11/19/18 11/19/18 Range/Units 05:18 03:15 03:15 WBC (4.8-10.8) K/uL RBC (4.40-5.90) Mil/uL Hgb (12.0-18.0) g/dL Hct (35.0-51.0) % MCV (80.0-94.0) fL MCH (27.0-31.0) pg MCHC (33.0-37.0) g/dL RDW (11.5-14.5) % Plt Count (130-400) K/uL MPV (7.2-11.7) fL Neut % (Auto) (50.0-75.0) % Lymph % (Auto) (20.0-40.0) % [place] % (Auto) (0.0-10.0) % Eos % (Auto) (0.0-4.0) % Baso % (Auto) (0.0-2.0) % Neut # (Auto) (1.8-7.0) K/uL Lymph # (Auto) (1.0-4.3) K/uL [place] # (Auto) (0.0-0.8) K/uL Eos # (Auto) (0.0-0.7) K/uL Baso # (Auto) (0.0-0.2) K/uL Neutrophils % (Manual) (50-75) % Band Neutrophils % (0-2) % Lymphocytes % (Manual) (20-40) % Monocytes % (Manual) (0-10) % Platelet Estimate (NORMAL) PT (9.7-12.2) SECONDS INR APTT 47 H D (21-34) SECONDS Puncture Site L rad pCO2 38 (35-45) mm/Hg pO2 246 H (30-55) mm/Hg HCO3 24.8 (21-28) mmol/L ABG pH 7.41 (7.35-7.45) ABG Total CO2 25.3 (22-28) mmol/L ABG O2 Saturation 100.7 H (95-98) % ABG Base Excess -0.3 (-2.0-3.0) mmol/L Anurag Test Pos ABG Potassium 3.9 (3.6-5.2) mmol/L VBG pH (7.32-7.43) VBG pCO2 (40-60) mmHg VBG HCO3 mmol/L VBG Total CO2 (22-28) mmol/L VBG O2 Sat (Calc) (40-65) % VBG Base Excess (0.0-2.0) mmol/L VBG Potassium (3.6-5.2) mmol/L A-a O2 Difference 420.0 mm/Hg Respiratory Index 1.7 Sodium 138.0 139 (132-148) mmol/l Chloride 106.0 102 (98-107) mmol/L Glucose 127 H (75-110) mg/dl Lactate 1.7 (0.7-2.1) mmol/L Vent Mode Prvc Mechanical Rate 16 FiO2 100.0 % Tidal Volume 500 PEEP 8 Expiratory BiPAP Potassium 4.1 (3.6-5.2) mmol/L Carbon Dioxide 25 (22-30) mmol/L Anion Gap 17 (10-20) BUN 17 (9-20) mg/dL Creatinine 0.7 L (0.8-1.5) mg/dL Est GFR ( Amer) > 60 Est GFR (Non-Af Amer) > 60 Random Glucose 126 H D (75-110) mg/dL Calcium 8.5 L (8.6-10.4) mg/dl Phosphorus 4.2 (2.5-4.5) mg/dL Magnesium 1.7 (1.6-2.3) mg/dL Total Bilirubin 0.9 (0.2-1.3) mg/dL AST 57 (17-59) U/L ALT 17 L D (21-72) U/L Alkaline Phosphatase 71 (38-126) U/L Lactate Dehydrogenase (313-618) U/L Total Creatine Kinase 234 H (55-170) U/L CK-MB (Mass) 20.6 H (0.0-3.38) ng/mL Troponin I 3.9700 H* (0.00-0.120) ng/mL NT-Pro-B Natriuret Pep (0-900) pg/mL Total Protein 7.4 (6.3-8.3) g/dL Albumin 4.1 (3.5-5.0) g/dL Globulin 3.3 (2.2-3.9) gm/dL Albumin/Globulin Ratio 1.2 (1.0-2.1) Procalcitonin (0.19-0.49) NG/ML Arterial Blood Potassium 3.9 (3.6-5.2) mmol/L Venous Blood Potassium (3.6-5.2) mmol/L Urine Color (YELLOW) Urine Clarity (Clear) Urine pH (5.0-8.0) Ur Specific [place] (1.003-1.030) Urine Protein (NEGATIVE) mg/dL Urine Glucose (UA) (Normal) mg/dL Urine Ketones (NEGATIVE) mg/dL Urine Blood (NEGATIVE) Urine Nitrate (NEGATIVE) Urine Bilirubin (NEGATIVE) Urine Urobilinogen (0.2-1.0) mg/dL Ur Leukocyte Esterase (Negative) Isi/uL Urine WBC (Auto) (0-5) /hpf Urine RBC (Auto) (0-3) /hpf Hyaline Casts (0-2) /lpf Urine Opiates Screen (NEGATIVE) Urine Methadone Screen (NEGATIVE) Ur Barbiturates Screen (NEGATIVE) Ur Phencyclidine Scrn (NEGATIVE) Ur Amphetamines Screen (NEGATIVE) U Benzodiazepines Scrn (NEGATIVE) U Oth Cocaine Metabols (NEGATIVE) U Cannabinoids Screen (NEGATIVE) HIV 1&2 Antibody Screen (NEGATIVE) Ur L.pneumophila Ag (NEGATIVE) 11/19/18 11/18/18 11/18/18 Range/Units 03:15 22:58 22:58 WBC 22.0 H (4.8-10.8) K/uL RBC 6.13 H (4.40-5.90) Mil/uL Hgb 17.0 (12.0-18.0) g/dL Hct 52.3 H (35.0-51.0) % MCV 85.3 (80.0-94.0) fL MCH 27.7 (27.0-31.0) pg MCHC 32.5 L (33.0-37.0) g/dL RDW 14.5 (11.5-14.5) % Plt Count 371 (130-400) K/uL MPV 8.4 (7.2-11.7) fL Neut % (Auto) 93.5 H (50.0-75.0) % Lymph % (Auto) 2.6 L (20.0-40.0) % [place] % (Auto) 3.9 (0.0-10.0) % Eos % (Auto) 0.0 (0.0-4.0) % Baso % (Auto) 0.0 (0.0-2.0) % Neut # (Auto) 20.5 H (1.8-7.0) K/uL Lymph # (Auto) 0.6 L (1.0-4.3) K/uL [place] # (Auto) 0.8 (0.0-0.8) K/uL Eos # (Auto) 0.0 (0.0-0.7) K/uL Baso # (Auto) 0.0 (0.0-0.2) K/uL Neutrophils % (Manual) 93 H (50-75) % Band Neutrophils % 1 (0-2) % Lymphocytes % (Manual) 2 L (20-40) % Monocytes % (Manual) 4 (0-10) % Platelet Estimate Normal (NORMAL) PT (9.7-12.2) SECONDS INR APTT (21-34) SECONDS Puncture Site pCO2 (35-45) mm/Hg pO2 (30-55) mm/Hg HCO3 (21-28) mmol/L ABG pH (7.35-7.45) ABG Total CO2 (22-28) mmol/L ABG O2 Saturation (95-98) % ABG Base Excess (-2.0-3.0) mmol/L Anurag Test ABG Potassium (3.6-5.2) mmol/L VBG pH (7.32-7.43) VBG pCO2 (40-60) mmHg VBG HCO3 mmol/L VBG Total CO2 (22-28) mmol/L VBG O2 Sat (Calc) (40-65) % VBG Base Excess (0.0-2.0) mmol/L VBG Potassium (3.6-5.2) mmol/L A-a O2 Difference mm/Hg Respiratory Index Sodium (132-148) mmol/l Chloride (98-107) mmol/L Glucose (75-110) mg/dl Lactate (0.7-2.1) mmol/L Vent Mode Mechanical Rate FiO2 % Tidal Volume PEEP Expiratory BiPAP Potassium (3.6-5.2) mmol/L Carbon Dioxide (22-30) mmol/L Anion Gap (10-20) BUN (9-20) mg/dL Creatinine (0.8-1.5) mg/dL Est GFR ( Amer) Est GFR (Non-Af Amer) Random Glucose (75-110) mg/dL Calcium (8.6-10.4) mg/dl Phosphorus (2.5-4.5) mg/dL Magnesium (1.6-2.3) mg/dL Total Bilirubin (0.2-1.3) mg/dL AST (17-59) U/L ALT (21-72) U/L Alkaline Phosphatase (38-126) U/L Lactate Dehydrogenase (313-618) U/L Total Creatine Kinase (55-170) U/L CK-MB (Mass) (0.0-3.38) ng/mL Troponin I (0.00-0.120) ng/mL NT-Pro-B Natriuret Pep (0-900) pg/mL Total Protein (6.3-8.3) g/dL Albumin (3.5-5.0) g/dL Globulin (2.2-3.9) gm/dL Albumin/Globulin Ratio (1.0-2.1) Procalcitonin (0.19-0.49) NG/ML Arterial Blood Potassium (3.6-5.2) mmol/L Venous Blood Potassium (3.6-5.2) mmol/L Urine Color Yellow (YELLOW) Urine Clarity Clear (Clear) Urine pH 5.0 (5.0-8.0) Ur Specific [place] 1.012 (1.003-1.030) Urine Protein Negative (NEGATIVE) mg/dL Urine Glucose (UA) 1+ H (Normal) mg/dL Urine Ketones Negative (NEGATIVE) mg/dL Urine Blood Negative (NEGATIVE) Urine Nitrate Negative (NEGATIVE) Urine Bilirubin Negative (NEGATIVE) Urine Urobilinogen Normal (0.2-1.0) mg/dL Ur Leukocyte Esterase Neg (Negative) Isi/uL Urine WBC (Auto) 3 (0-5) /hpf Urine RBC (Auto) 1 (0-3) /hpf Hyaline Casts 11-20 H (0-2) /lpf Urine Opiates Screen (NEGATIVE) Urine Methadone Screen (NEGATIVE) Ur Barbiturates Screen (NEGATIVE) Ur Phencyclidine Scrn (NEGATIVE) Ur Amphetamines Screen (NEGATIVE) U Benzodiazepines Scrn (NEGATIVE) U Oth Cocaine Metabols (NEGATIVE) U Cannabinoids Screen (NEGATIVE) HIV 1&2 Antibody Screen (NEGATIVE) Ur L.pneumophila Ag Negative (NEGATIVE) 11/18/18 11/18/18 11/18/18 Range/Units 22:58 21:54 20:03 WBC (4.8-10.8) K/uL RBC (4.40-5.90) Mil/uL Hgb (12.0-18.0) g/dL Hct (35.0-51.0) % MCV (80.0-94.0) fL MCH (27.0-31.0) pg MCHC (33.0-37.0) g/dL RDW (11.5-14.5) % Plt Count (130-400) K/uL MPV (7.2-11.7) fL Neut % (Auto) (50.0-75.0) % Lymph % (Auto) (20.0-40.0) % [place] % (Auto) (0.0-10.0) % Eos % (Auto) (0.0-4.0) % Baso % (Auto) (0.0-2.0) % Neut # (Auto) (1.8-7.0) K/uL Lymph # (Auto) (1.0-4.3) K/uL [place] # (Auto) (0.0-0.8) K/uL Eos # (Auto) (0.0-0.7) K/uL Baso # (Auto) (0.0-0.2) K/uL Neutrophils % (Manual) (50-75) % Band Neutrophils % (0-2) % Lymphocytes % (Manual) (20-40) % Monocytes % (Manual) (0-10) % Platelet Estimate (NORMAL) PT 13.6 H (9.7-12.2) SECONDS INR 1.2 APTT 56 H (21-34) SECONDS Puncture Site Lr pCO2 38 (35-45) mm/Hg pO2 86 (30-55) mm/Hg HCO3 22.1 (21-28) mmol/L ABG pH 7.36 (7.35-7.45) ABG Total CO2 22.7 (22-28) mmol/L ABG O2 Saturation 97.9 (95-98) % ABG Base Excess -3.6 L (-2.0-3.0) mmol/L Anurag Test Unable ABG Potassium 2.6 L (3.6-5.2) mmol/L VBG pH (7.32-7.43) VBG pCO2 (40-60) mmHg VBG HCO3 mmol/L VBG Total CO2 (22-28) mmol/L VBG O2 Sat (Calc) (40-65) % VBG Base Excess (0.0-2.0) mmol/L VBG Potassium (3.6-5.2) mmol/L A-a O2 Difference 580.0 mm/Hg Respiratory Index 6.7 Sodium 138.0 (132-148) mmol/l Chloride 103.0 (98-107) mmol/L Glucose 219 H (75-110) mg/dl Lactate 3.0 H (0.7-2.1) mmol/L Vent Mode Prvc Mechanical Rate 16 FiO2 100.0 % Tidal Volume 500 PEEP 8 Expiratory BiPAP Potassium (3.6-5.2) mmol/L Carbon Dioxide (22-30) mmol/L Anion Gap (10-20) BUN (9-20) mg/dL Creatinine (0.8-1.5) mg/dL Est GFR ( Amer) Est GFR (Non-Af Amer) Random Glucose (75-110) mg/dL Calcium (8.6-10.4) mg/dl Phosphorus (2.5-4.5) mg/dL Magnesium (1.6-2.3) mg/dL Total Bilirubin (0.2-1.3) mg/dL AST (17-59) U/L ALT (21-72) U/L Alkaline Phosphatase (38-126) U/L Lactate Dehydrogenase (313-618) U/L Total Creatine Kinase (55-170) U/L CK-MB (Mass) (0.0-3.38) ng/mL Troponin I (0.00-0.120) ng/mL NT-Pro-B Natriuret Pep (0-900) pg/mL Total Protein (6.3-8.3) g/dL Albumin (3.5-5.0) g/dL Globulin (2.2-3.9) gm/dL Albumin/Globulin Ratio (1.0-2.1) Procalcitonin (0.19-0.49) NG/ML Arterial Blood Potassium 2.6 L (3.6-5.2) mmol/L Venous Blood Potassium (3.6-5.2) mmol/L Urine Color (YELLOW) Urine Clarity (Clear) Urine pH (5.0-8.0) Ur Specific [place] (1.003-1.030) Urine Protein (NEGATIVE) mg/dL Urine Glucose (UA) (Normal) mg/dL Urine Ketones (NEGATIVE) mg/dL Urine Blood (NEGATIVE) Urine Nitrate (NEGATIVE) Urine Bilirubin (NEGATIVE) Urine Urobilinogen (0.2-1.0) mg/dL Ur Leukocyte Esterase (Negative) Isi/uL Urine WBC (Auto) (0-5) /hpf Urine RBC (Auto) (0-3) /hpf Hyaline Casts (0-2) /lpf Urine Opiates Screen Positive H (NEGATIVE) Urine Methadone Screen Negative (NEGATIVE) Ur Barbiturates Screen Negative (NEGATIVE) Ur Phencyclidine Scrn Negative (NEGATIVE) Ur Amphetamines Screen Negative (NEGATIVE) U Benzodiazepines Scrn Positive (NEGATIVE) U Oth Cocaine Metabols Positive H (NEGATIVE) U Cannabinoids Screen Positive H (NEGATIVE) HIV 1&2 Antibody Screen (NEGATIVE) Ur L.pneumophila Ag (NEGATIVE) 11/18/18 11/18/18 11/18/18 Range/Units 19:42 18:40 17:26 WBC (4.8-10.8) K/uL RBC (4.40-5.90) Mil/uL Hgb (12.0-18.0) g/dL Hct (35.0-51.0) % MCV (80.0-94.0) fL MCH (27.0-31.0) pg MCHC (33.0-37.0) g/dL RDW (11.5-14.5) % Plt Count (130-400) K/uL MPV (7.2-11.7) fL Neut % (Auto) (50.0-75.0) % Lymph % (Auto) (20.0-40.0) % [place] % (Auto) (0.0-10.0) % Eos % (Auto) (0.0-4.0) % Baso % (Auto) (0.0-2.0) % Neut # (Auto) (1.8-7.0) K/uL Lymph # (Auto) (1.0-4.3) K/uL [place] # (Auto) (0.0-0.8) K/uL Eos # (Auto) (0.0-0.7) K/uL Baso # (Auto) (0.0-0.2) K/uL Neutrophils % (Manual) (50-75) % Band Neutrophils % (0-2) % Lymphocytes % (Manual) (20-40) % Monocytes % (Manual) (0-10) % Platelet Estimate (NORMAL) PT (9.7-12.2) SECONDS INR APTT (21-34) SECONDS Puncture Site pCO2 (35-45) mm/Hg pO2 20 L (30-55) mm/Hg HCO3 (21-28) mmol/L ABG pH (7.35-7.45) ABG Total CO2 (22-28) mmol/L ABG O2 Saturation (95-98) % ABG Base Excess (-2.0-3.0) mmol/L Anurag Test ABG Potassium (3.6-5.2) mmol/L VBG pH 7.38 (7.32-7.43) VBG pCO2 44 (40-60) mmHg VBG HCO3 23.5 mmol/L VBG Total CO2 27.4 (22-28) mmol/L VBG O2 Sat (Calc) 30.7 L (40-65) % VBG Base Excess 0.5 (0.0-2.0) mmol/L VBG Potassium 3.3 L (3.6-5.2) mmol/L A-a O2 Difference mm/Hg Respiratory Index Sodium 138.0 (132-148) mmol/l Chloride 99.0 (98-107) mmol/L Glucose 177 H (75-110) mg/dl Lactate 4.0 H* (0.7-2.1) mmol/L Vent Mode Mechanical Rate FiO2 100.0 % Tidal Volume PEEP Expiratory BiPAP 5 Potassium (3.6-5.2) mmol/L Carbon Dioxide (22-30) mmol/L Anion Gap (10-20) BUN (9-20) mg/dL Creatinine (0.8-1.5) mg/dL Est GFR ( Amer) Est GFR (Non-Af Amer) Random Glucose (75-110) mg/dL Calcium (8.6-10.4) mg/dl Phosphorus (2.5-4.5) mg/dL Magnesium (1.6-2.3) mg/dL Total Bilirubin (0.2-1.3) mg/dL AST (17-59) U/L ALT (21-72) U/L Alkaline Phosphatase (38-126) U/L Lactate Dehydrogenase (313-618) U/L Total Creatine Kinase 269 H (55-170) U/L CK-MB (Mass) 13.8 H (0.0-3.38) ng/mL Troponin I 3.3400 H* (0.00-0.120) ng/mL NT-Pro-B Natriuret Pep (0-900) pg/mL Total Protein (6.3-8.3) g/dL Albumin (3.5-5.0) g/dL Globulin (2.2-3.9) gm/dL Albumin/Globulin Ratio (1.0-2.1) Procalcitonin (0.19-0.49) NG/ML Arterial Blood Potassium (3.6-5.2) mmol/L Venous Blood Potassium 3.3 L (3.6-5.2) mmol/L Urine Color (YELLOW) Urine Clarity (Clear) Urine pH (5.0-8.0) Ur Specific [place] (1.003-1.030) Urine Protein (NEGATIVE) mg/dL Urine Glucose (UA) (Normal) mg/dL Urine Ketones (NEGATIVE) mg/dL Urine Blood (NEGATIVE) Urine Nitrate (NEGATIVE) Urine Bilirubin (NEGATIVE) Urine Urobilinogen (0.2-1.0) mg/dL Ur Leukocyte Esterase (Negative) Isi/uL Urine WBC (Auto) (0-5) /hpf Urine RBC (Auto) (0-3) /hpf Hyaline Casts (0-2) /lpf Urine Opiates Screen (NEGATIVE) Urine Methadone Screen (NEGATIVE) Ur Barbiturates Screen (NEGATIVE) Ur Phencyclidine Scrn (NEGATIVE) Ur Amphetamines Screen (NEGATIVE) U Benzodiazepines Scrn (NEGATIVE) U Oth Cocaine Metabols (NEGATIVE) U Cannabinoids Screen (NEGATIVE) HIV 1&2 Antibody Screen Negative (NEGATIVE) Ur L.pneumophila Ag (NEGATIVE) 11/18/18 11/18/18 11/18/18 Range/Units 16:39 15:42 15:42 WBC (4.8-10.8) K/uL RBC (4.40-5.90) Mil/uL Hgb (12.0-18.0) g/dL Hct (35.0-51.0) % MCV (80.0-94.0) fL MCH (27.0-31.0) pg MCHC (33.0-37.0) g/dL RDW (11.5-14.5) % Plt Count (130-400) K/uL MPV (7.2-11.7) fL Neut % (Auto) (50.0-75.0) % Lymph % (Auto) (20.0-40.0) % [place] % (Auto) (0.0-10.0) % Eos % (Auto) (0.0-4.0) % Baso % (Auto) (0.0-2.0) % Neut # (Auto) (1.8-7.0) K/uL Lymph # (Auto) (1.0-4.3) K/uL [place] # (Auto) (0.0-0.8) K/uL Eos # (Auto) (0.0-0.7) K/uL Baso # (Auto) (0.0-0.2) K/uL Neutrophils % (Manual) 93 H (50-75) % Band Neutrophils % (0-2) % Lymphocytes % (Manual) 4 L (20-40) % Monocytes % (Manual) 3 (0-10) % Platelet Estimate Slightly increased H (NORMAL) PT (9.7-12.2) SECONDS INR APTT (21-34) SECONDS Puncture Site pCO2 (35-45) mm/Hg pO2 (30-55) mm/Hg HCO3 (21-28) mmol/L ABG pH (7.35-7.45) ABG Total CO2 (22-28) mmol/L ABG O2 Saturation (95-98) % ABG Base Excess (-2.0-3.0) mmol/L Anurag Test ABG Potassium (3.6-5.2) mmol/L VBG pH (7.32-7.43) VBG pCO2 (40-60) mmHg VBG HCO3 mmol/L VBG Total CO2 (22-28) mmol/L VBG O2 Sat (Calc) (40-65) % VBG Base Excess (0.0-2.0) mmol/L VBG Potassium (3.6-5.2) mmol/L A-a O2 Difference mm/Hg Respiratory Index Sodium (132-148) mmol/l Chloride (98-107) mmol/L Glucose (75-110) mg/dl Lactate (0.7-2.1) mmol/L Vent Mode Mechanical Rate FiO2 % Tidal Volume PEEP Expiratory BiPAP Potassium (3.6-5.2) mmol/L Carbon Dioxide (22-30) mmol/L Anion Gap (10-20) BUN (9-20) mg/dL Creatinine (0.8-1.5) mg/dL Est GFR ( Amer) Est GFR (Non-Af Amer) Random Glucose (75-110) mg/dL Calcium (8.6-10.4) mg/dl Phosphorus (2.5-4.5) mg/dL Magnesium (1.6-2.3) mg/dL Total Bilirubin (0.2-1.3) mg/dL AST (17-59) U/L ALT (21-72) U/L Alkaline Phosphatase (38-126) U/L Lactate Dehydrogenase 628 H (313-618) U/L Total Creatine Kinase (55-170) U/L CK-MB (Mass) 11.7 H (0.0-3.38) ng/mL Troponin I 3.3300 H* (0.00-0.120) ng/mL NT-Pro-B Natriuret Pep 74345 H (0-900) pg/mL Total Protein (6.3-8.3) g/dL Albumin (3.5-5.0) g/dL Globulin (2.2-3.9) gm/dL Albumin/Globulin Ratio (1.0-2.1) Procalcitonin (0.19-0.49) NG/ML Arterial Blood Potassium (3.6-5.2) mmol/L Venous Blood Potassium (3.6-5.2) mmol/L Urine Color (YELLOW) Urine Clarity (Clear) Urine pH (5.0-8.0) Ur Specific [place] (1.003-1.030) Urine Protein (NEGATIVE) mg/dL Urine Glucose (UA) (Normal) mg/dL Urine Ketones (NEGATIVE) mg/dL Urine Blood (NEGATIVE) Urine Nitrate (NEGATIVE) Urine Bilirubin (NEGATIVE) Urine Urobilinogen (0.2-1.0) mg/dL Ur Leukocyte Esterase (Negative) Isi/uL Urine WBC (Auto) (0-5) /hpf Urine RBC (Auto) (0-3) /hpf Hyaline Casts (0-2) /lpf Urine Opiates Screen (NEGATIVE) Urine Methadone Screen (NEGATIVE) Ur Barbiturates Screen (NEGATIVE) Ur Phencyclidine Scrn (NEGATIVE) Ur Amphetamines Screen (NEGATIVE) U Benzodiazepines Scrn (NEGATIVE) U Oth Cocaine Metabols (NEGATIVE) U Cannabinoids Screen (NEGATIVE) HIV 1&2 Antibody Screen (NEGATIVE) Ur L.pneumophila Ag (NEGATIVE) Laboratory Results - last 24 hr 11/18/18 11/18/18 11/18/18 15:42 15:42 16:39 WBC RBC Hgb Hct MCV MCH MCHC RDW Plt Count MPV Neut % (Auto) Lymph % (Auto) [place] % (Auto) Eos % (Auto) Baso % (Auto) Neut # (Auto) Lymph # (Auto) [place] # (Auto) Eos # (Auto) Baso # (Auto) Neutrophils % (Manual) 93 H Band Neutrophils % Lymphocytes % (Manual) 4 L Monocytes % (Manual) 3 Platelet Estimate Slightly increased H PT INR APTT Puncture Site pCO2 pO2 HCO3 ABG pH ABG Total CO2 ABG O2 Saturation ABG Base Excess Anurag Test ABG Potassium VBG pH VBG pCO2 VBG HCO3 VBG Total CO2 VBG O2 Sat (Calc) VBG Base Excess VBG Potassium A-a O2 Difference Respiratory Index Sodium Chloride Glucose Lactate Vent Mode Mechanical Rate FiO2 Tidal Volume PEEP Expiratory BiPAP Potassium Carbon Dioxide Anion Gap BUN Creatinine Est GFR ( Amer) Est GFR (Non-Af Amer) Random Glucose Calcium Phosphorus Magnesium Total Bilirubin AST ALT Alkaline Phosphatase Lactate Dehydrogenase 628 H Total Creatine Kinase CK-MB (Mass) 11.7 H Troponin I 3.3300 H* NT-Pro-B Natriuret Pep 93959 H Total Protein Albumin Globulin Albumin/Globulin Ratio Procalcitonin Arterial Blood Potassium Venous Blood Potassium Urine Color Urine Clarity Urine pH Ur Specific [place] Urine Protein Urine Glucose (UA) Urine Ketones Urine Blood Urine Nitrate Urine Bilirubin Urine Urobilinogen Ur Leukocyte Esterase Urine WBC (Auto) Urine RBC (Auto) Hyaline Casts Urine Opiates Screen Urine Methadone Screen Ur Barbiturates Screen Ur Phencyclidine Scrn Ur Amphetamines Screen U Benzodiazepines Scrn U Oth Cocaine Metabols U Cannabinoids Screen HIV 1&2 Antibody Screen Ur L.pneumophila Ag 11/18/18 11/18/18 11/18/18 17:26 18:40 19:42 WBC RBC Hgb Hct MCV MCH MCHC RDW Plt Count MPV Neut % (Auto) Lymph % (Auto) [place] % (Auto) Eos % (Auto) Baso % (Auto) Neut # (Auto) Lymph # (Auto) [place] # (Auto) Eos # (Auto) Baso # (Auto) Neutrophils % (Manual) Band Neutrophils % Lymphocytes % (Manual) Monocytes % (Manual) Platelet Estimate PT INR APTT Puncture Site pCO2 pO2 20 L HCO3 ABG pH ABG Total CO2 ABG O2 Saturation ABG Base Excess Anurag Test ABG Potassium VBG pH 7.38 VBG pCO2 44 VBG HCO3 23.5 VBG Total CO2 27.4 VBG O2 Sat (Calc) 30.7 L VBG Base Excess 0.5 VBG Potassium 3.3 L A-a O2 Difference Respiratory Index Sodium 138.0 Chloride 99.0 Glucose 177 H Lactate 4.0 H* Vent Mode Mechanical Rate FiO2 100.0 Tidal Volume PEEP Expiratory BiPAP 5 Potassium Carbon Dioxide Anion Gap BUN Creatinine Est GFR ( Amer) Est GFR (Non-Af Amer) Random Glucose Calcium Phosphorus Magnesium Total Bilirubin AST ALT Alkaline Phosphatase Lactate Dehydrogenase Total Creatine Kinase 269 H CK-MB (Mass) 13.8 H Troponin I 3.3400 H* NT-Pro-B Natriuret Pep Total Protein Albumin Globulin Albumin/Globulin Ratio Procalcitonin Arterial Blood Potassium Venous Blood Potassium 3.3 L Urine Color Urine Clarity Urine pH Ur Specific [place] Urine Protein Urine Glucose (UA) Urine Ketones Urine Blood Urine Nitrate Urine Bilirubin Urine Urobilinogen Ur Leukocyte Esterase Urine WBC (Auto) Urine RBC (Auto) Hyaline Casts Urine Opiates Screen Urine Methadone Screen Ur Barbiturates Screen Ur Phencyclidine Scrn Ur Amphetamines Screen U Benzodiazepines Scrn U Oth Cocaine Metabols U Cannabinoids Screen HIV 1&2 Antibody Screen Negative Ur L.pneumophila Ag 11/18/18 11/18/18 11/18/18 20:03 21:54 22:58 WBC RBC Hgb Hct MCV MCH MCHC RDW Plt Count MPV Neut % (Auto) Lymph % (Auto) [place] % (Auto) Eos % (Auto) Baso % (Auto) Neut # (Auto) Lymph # (Auto) [place] # (Auto) Eos # (Auto) Baso # (Auto) Neutrophils % (Manual) Band Neutrophils % Lymphocytes % (Manual) Monocytes % (Manual) Platelet Estimate PT 13.6 H INR 1.2 APTT 56 H Puncture Site Lr pCO2 38 pO2 86 HCO3 22.1 ABG pH 7.36 ABG Total CO2 22.7 ABG O2 Saturation 97.9 ABG Base Excess -3.6 L Anurag Test Unable ABG Potassium 2.6 L VBG pH VBG pCO2 VBG HCO3 VBG Total CO2 VBG O2 Sat (Calc) VBG Base Excess VBG Potassium A-a O2 Difference 580.0 Respiratory Index 6.7 Sodium 138.0 Chloride 103.0 Glucose 219 H Lactate 3.0 H Vent Mode Prvc Mechanical Rate 16 FiO2 100.0 Tidal Volume 500 PEEP 8 Expiratory BiPAP Potassium Carbon Dioxide Anion Gap BUN Creatinine Est GFR ( Amer) Est GFR (Non-Af Amer) Random Glucose Calcium Phosphorus Magnesium Total Bilirubin AST ALT Alkaline Phosphatase Lactate Dehydrogenase Total Creatine Kinase CK-MB (Mass) Troponin I NT-Pro-B Natriuret Pep Total Protein Albumin Globulin Albumin/Globulin Ratio Procalcitonin Arterial Blood Potassium 2.6 L Venous Blood Potassium Urine Color Urine Clarity Urine pH Ur Specific [place] Urine Protein Urine Glucose (UA) Urine Ketones Urine Blood Urine Nitrate Urine Bilirubin Urine Urobilinogen Ur Leukocyte Esterase Urine WBC (Auto) Urine RBC (Auto) Hyaline Casts Urine Opiates Screen Positive H Urine Methadone Screen Negative Ur Barbiturates Screen Negative Ur Phencyclidine Scrn Negative Ur Amphetamines Screen Negative U Benzodiazepines Scrn Positive U Oth Cocaine Metabols Positive H U Cannabinoids Screen Positive H HIV 1&2 Antibody Screen Ur L.pneumophila Ag 11/18/18 11/18/18 11/19/18 22:58 22:58 03:15 WBC 22.0 H RBC 6.13 H Hgb 17.0 Hct 52.3 H MCV 85.3 MCH 27.7 MCHC 32.5 L RDW 14.5 Plt Count 371 MPV 8.4 Neut % (Auto) 93.5 H Lymph % (Auto) 2.6 L [place] % (Auto) 3.9 Eos % (Auto) 0.0 Baso % (Auto) 0.0 Neut # (Auto) 20.5 H Lymph # (Auto) 0.6 L [place] # (Auto) 0.8 Eos # (Auto) 0.0 Baso # (Auto) 0.0 Neutrophils % (Manual) 93 H Band Neutrophils % 1 Lymphocytes % (Manual) 2 L Monocytes % (Manual) 4 Platelet Estimate Normal PT INR APTT Puncture Site pCO2 pO2 HCO3 ABG pH ABG Total CO2 ABG O2 Saturation ABG Base Excess Anurag Test ABG Potassium VBG pH VBG pCO2 VBG HCO3 VBG Total CO2 VBG O2 Sat (Calc) VBG Base Excess VBG Potassium A-a O2 Difference Respiratory Index Sodium Chloride Glucose Lactate Vent Mode Mechanical Rate FiO2 Tidal Volume PEEP Expiratory BiPAP Potassium Carbon Dioxide Anion Gap BUN Creatinine Est GFR ( Amer) Est GFR (Non-Af Amer) Random Glucose Calcium Phosphorus Magnesium Total Bilirubin AST ALT Alkaline Phosphatase Lactate Dehydrogenase Total Creatine Kinase CK-MB (Mass) Troponin I NT-Pro-B Natriuret Pep Total Protein Albumin Globulin Albumin/Globulin Ratio Procalcitonin Arterial Blood Potassium Venous Blood Potassium Urine Color Yellow Urine Clarity Clear Urine pH 5.0 Ur Specific [place] 1.012 Urine Protein Negative Urine Glucose (UA) 1+ H Urine Ketones Negative Urine Blood Negative Urine Nitrate Negative Urine Bilirubin Negative Urine Urobilinogen Normal Ur Leukocyte Esterase Neg Urine WBC (Auto) 3 Urine RBC (Auto) 1 Hyaline Casts 11-20 H Urine Opiates Screen Urine Methadone Screen Ur Barbiturates Screen Ur Phencyclidine Scrn Ur Amphetamines Screen U Benzodiazepines Scrn U Oth Cocaine Metabols U Cannabinoids Screen HIV 1&2 Antibody Screen Ur L.pneumophila Ag Negative 0111/19/18 11/19/18 03:15 03:15 05:18 WBC RBC Hgb Hct MCV MCH MCHC RDW Plt Count MPV Neut % (Auto) Lymph % (Auto) [place] % (Auto) Eos % (Auto) Baso % (Auto) Neut # (Auto) Lymph # (Auto) [place] # (Auto) Eos # (Auto) Baso # (Auto) Neutrophils % (Manual) Band Neutrophils % Lymphocytes % (Manual) Monocytes % (Manual) Platelet Estimate PT INR APTT 47 H D Puncture Site L rad pCO2 38 pO2 246 H HCO3 24.8 ABG pH 7.41 ABG Total CO2 25.3 ABG O2 Saturation 100.7 H ABG Base Excess -0.3 Anurag Test Pos ABG Potassium 3.9 VBG pH VBG pCO2 VBG HCO3 VBG Total CO2 VBG O2 Sat (Calc) VBG Base Excess VBG Potassium A-a O2 Difference 420.0 Respiratory Index 1.7 Sodium 139 138.0 Chloride 102 106.0 Glucose 127 H Lactate 1.7 Vent Mode Prvc Mechanical Rate 16 FiO2 100.0 Tidal Volume 500 PEEP 8 Expiratory BiPAP Potassium 4.1 Carbon Dioxide 25 Anion Gap 17 BUN 17 Creatinine 0.7 L Est GFR ( Amer) > 60 Est GFR (Non-Af Amer) > 60 Random Glucose 126 H D Calcium 8.5 L Phosphorus 4.2 Magnesium 1.7 Total Bilirubin 0.9 AST 57 ALT 17 L D Alkaline Phosphatase 71 Lactate Dehydrogenase Total Creatine Kinase 234 H CK-MB (Mass) 20.6 H Troponin I 3.9700 H* NT-Pro-B Natriuret Pep Total Protein 7.4 Albumin 4.1 Globulin 3.3 Albumin/Globulin Ratio 1.2 Procalcitonin Arterial Blood Potassium 3.9 Venous Blood Potassium Urine Color Urine Clarity Urine pH Ur Specific [place] Urine Protein Urine Glucose (UA) Urine Ketones Urine Blood Urine Nitrate Urine Bilirubin Urine Urobilinogen Ur Leukocyte Esterase Urine WBC (Auto) Urine RBC (Auto) Hyaline Casts Urine Opiates Screen Urine Methadone Screen Ur Barbiturates Screen Ur Phencyclidine Scrn Ur Amphetamines Screen U Benzodiazepines Scrn U Oth Cocaine Metabols U Cannabinoids Screen HIV 1&2 Antibody Screen Ur L.pneumophila Ag 11/19/18 11/19/18 11/19/18 10:09 10:09 10:09 WBC RBC Hgb Hct MCV MCH MCHC RDW Plt Count MPV Neut % (Auto) Lymph % (Auto) [place] % (Auto) Eos % (Auto) Baso % (Auto) Neut # (Auto) Lymph # (Auto) [place] # (Auto) Eos # (Auto) Baso # (Auto) Neutrophils % (Manual) Band Neutrophils % Lymphocytes % (Manual) Monocytes % (Manual) Platelet Estimate PT INR APTT 39 H D Puncture Site pCO2 pO2 HCO3 ABG pH ABG Total CO2 ABG O2 Saturation ABG Base Excess Anurag Test ABG Potassium VBG pH VBG pCO2 VBG HCO3 VBG Total CO2 VBG O2 Sat (Calc) VBG Base Excess VBG Potassium A-a O2 Difference Respiratory Index Sodium Chloride Glucose Lactate Vent Mode Mechanical Rate FiO2 Tidal Volume PEEP Expiratory BiPAP Potassium Carbon Dioxide Anion Gap BUN Creatinine Est GFR ( Amer) Est GFR (Non-Af Amer) Random Glucose Calcium Phosphorus Magnesium Total Bilirubin AST ALT Alkaline Phosphatase Lactate Dehydrogenase Total Creatine Kinase 230 H CK-MB (Mass) 14.2 H Troponin I 3.5300 H* NT-Pro-B Natriuret Pep Total Protein Albumin Globulin Albumin/Globulin Ratio Procalcitonin 0.30 Arterial Blood Potassium Venous Blood Potassium Urine Color Urine Clarity Urine pH Ur Specific [place] Urine Protein Urine Glucose (UA) Urine Ketones Urine Blood Urine Nitrate Urine Bilirubin Urine Urobilinogen Ur Leukocyte Esterase Urine WBC (Auto) Urine RBC (Auto) Hyaline Casts Urine Opiates Screen Urine Methadone Screen Ur Barbiturates Screen Ur Phencyclidine Scrn Ur Amphetamines Screen U Benzodiazepines Scrn U Oth Cocaine Metabols U Cannabinoids Screen HIV 1&2 Antibody Screen Ur L.pneumophila Ag Radiology Impressions: Radiology Impressions Chest X-Ray 11/18/18 15:11 IMPRESSION: Patchy bilateral airspace opacities and interstitial edema/infection. Chest CT 11/18/18 16:23 Impression: Patchy bilateral ground-glass airspace opacities upper lobe predominance; indeterminate etiology. Correlate clinically. Considerations include but not limited to atypical infection, pulmonary edema, hemorrhage. Recommend follow-up upon completion of treatment for acute symptoms order to assess for complete resolution. Heart size appears top normal. Trace pericardial effusion. Dense coronary artery calcifications. Findings discussed with Dr. Leone on 11/18/18 at 5:28 p.m. Chest X-Ray 11/18/18 20:35 IMPRESSION: ETT NGT as above. Interval progression diffuse bilateral infiltrates. Findings could represent diffuse bilateral pneumonia and/or pulmonary venous congestion EKG/Cardiology Studies: Cardiology / EKG Studies 11/18/18 16:36 EKG [ELECTROCARDIOGRAM] Stat Comment: [id number] Mode Of Transportation: STRETCHER Reason For Exam: REPEAT Critical Care Progress Note - Nutrition Nutrition: Nutrition Category Date Time Status NPO Diet [DIET] Diets 11/19/18 Breakfast Active Attending/Attestation - Attestation I have personally seen and examined this patient.: Yes I have fully participated in the care of the patient.: Yes I have reviewed all pertinent clinical information: Yes Notes (Text): 11/19/18 16:24 Patient seen and examined in the intensive care unit. Remained intubated on ventilatory support Continue anticoagulation Continue antibiotics Follow-up culture and sensitivity Possible cardiac cath IV sedation Echocardiogram
[2018-11-19] MEDS ORDERED: Heparin25000 units/250ml 1/2NS 25,000 UNITS/250 ML BAG IV PRN (15:00)
[2018-11-19] MEDS: Midazolam 50 mg/10 ml 100 MG in Sodium Chloride 0.9% 80 ML IV SCH ×2 (17:07→21:00)
[2018-11-19] MEDS ORDERED: Nitroglycerin 50mg in D5W 50 MG/250 ML BOTTLE IV ONE (18:18)
[2018-11-19] MEDS ORDERED: Verapamil 2 ML ONE (18:18)
[2018-11-19] MEDS ORDERED: Iohexol 350mg/ml 100 ML ONE (18:18)
--- NOTE | 2018-11-19 19:25 | CP.PCM.CON ---
History of Present Illness - History of Present Illness History of Present Illness: Consultation for CHF exacerbation HPI: Review of Systems - Review of Systems Systems not reviewed;Unavailable: Acuity of Condition - Constitutional Constitutional: As Per HPI - EENT Eyes: As Per HPI Ears: As Per HPI Nose/Mouth/Throat: As Per HPI - Cardiovascular Cardiovascular: As Per HPI - Respiratory Respiratory: As Per HPI - Gastrointestinal Gastrointestinal: As Per HPI - Genitourinary Genitourinary: As Per HPI - Reproductive: Male Reproductive:Male: As Per HPI - Musculoskeletal Musculoskeletal: As Per HPI - Integumentary Integumentary: As Per HPI - Neurological Neurological: As Per HPI - Psychiatric Psychiatric: As Per HPI - Endocrine Endocrine: As Per HPI - Hematologic/Lymphatic Hematologic: As Per HPI Past Patient History - Past Medical History & Family History Past Medical History?: Yes - Past Social History Smoking Status: Never Smoked - CARDIAC Hx Cardiac Disorders: No - PULMONARY Hx Respiratory Disorders: No - NEUROLOGICAL Hx Neurological Disorder: No - HEENT Hx HEENT Problems: No - RENAL Hx Chronic Kidney Disease: No - ENDOCRINE/METABOLIC Hx Endocrine Disorders: No - HEMATOLOGICAL/ONCOLOGICAL Hx Blood Disorders: No - INTEGUMENTARY Hx Dermatological Problems: No - MUSCULOSKELETAL/RHEUMATOLOGICAL Hx Arthritis: Yes Hx Falls: No Other/Comment: hip replacement - GASTROINTESTINAL Hx Gastrointestinal Disorders: Yes - GENITOURINARY/GYNECOLOGICAL Hx Genitourinary Disorders: No - PSYCHIATRIC Hx Psychophysiologic Disorder: Yes Hx Substance Use: Yes (uses marijuana) - SURGICAL HISTORY Hx Surgeries: Yes Hx Orthopedic Surgery: Yes (hip replacement) - ANESTHESIA Hx Anesthesia: Yes Hx Anesthesia Reactions: No Meds Allergies/Adverse Reactions: Allergies Allergy/AdvReac Type Severity Reaction Status Date / Time No Known Allergies Allergy Verified 11/18/18 15:06 - Medications Medications: Current Medications Acetaminophen (Tylenol 325mg Tab) 650 mg PO Q6 PRN PRN Reason: pain+fever Last Admin: 11/19/18 16:43 Dose: 650 mg Albuterol/Ipratropium (Duoneb 3 Mg/0.5 Mg (3 Ml) Ud) 3 ml INH RQ4 NIKITA Last Admin: 11/19/18 14:14 Dose: 3 ml Aspirin (Aspirin Chewable) 81 mg PO DAILY NIKITA Last Admin: 11/19/18 09:25 Dose: 81 mg Furosemide (Lasix) 40 mg IVP Q12H NIKITA Stop: 11/20/18 11:16 Last Admin: 11/19/18 10:39 Dose: 40 mg Azithromycin 500 mg/ Sodium (Chloride) 250 mls @ 250 mls/hr IVPB DAILY NIKITA; Protocol Last Admin: 11/19/18 09:25 Dose: 250 mls/hr Piperacillin Sod/Tazobactam Sod (Zosyn 3.375 Gm Iv Premix) 3.375 gm in 50 mls @ 100 mls/hr IVPB Q8H NIKITA; Protocol Last Admin: 11/19/18 10:40 Dose: 100 mls/hr Propofol (Diprivan) 1,000 mg in 100 mls @ 2.994 mls/hr IV .Q24H PRN; Protocol PRN Reason: TITRATE PER MD ORDER Last Admin: 11/19/18 17:04 Dose: 29.22 mcg/kg/min, 17.5 mls/hr Midazolam HCl 100 mg/ Sodium (Chloride) 100 mls @ 2 mls/hr IV .Q24H NIKITA; Protocol Last Admin: 11/19/18 17:07 Dose: 0.06 mg/kg/hr, 6 mls/hr Heparin Sodium/Sodium Chloride (Heparin 91211 Units/250ml 1/2 Normal Saline) 25,000 units in 250 mls @ 11.688 mls/hr IV .[id number] PRN; Protocol PRN Reason: ADJUST RATE PER PROTOCOL Last Admin: 11/19/18 14:59 Dose: 12 units/kg/hr, 11.688 mls/hr Influenza Virus Vaccine (Flucelvax Quad [id number] Syr) 60 mcg IM .ONCE ONE Stop: 11/20/18 10:01 Pantoprazole Sodium (Protonix Inj) 40 mg IVP DAILY [facility] Last Admin: 11/19/18 10:39 Dose: 40 mg Pneumococcal Polyvalent Vaccine (Pneumovax 23 Vaccine) 0.5 ml IM .ONCE ONE Stop: 11/21/18 10:01 Physical Exam - Constitutional Appears: Well, Toxic - Head Exam Head Exam: ATRAUMATIC, NORMAL INSPECTION, NORMOCEPHALIC - Eye Exam Eye Exam: Normal appearance Pupil Exam: NORMAL ACCOMODATION - ENT Exam ENT Exam: Mucous Membranes Moist, Normal Exam - Neck Exam Neck exam: Positive for: Normal Inspection - Respiratory Exam Respiratory Exam: Clear to Auscultation Bilateral, Rales, NORMAL BREATHING PATTERN - Cardiovascular Exam Cardiovascular Exam: REGULAR RHYTHM, RRR, +S1, +S2, Systolic Murmur - GI/Abdominal Exam GI & Abdominal Exam: Normal Bowel Sounds, Soft. absent: Tenderness - Extremities Exam Extremities exam: Positive for: normal inspection - Back Exam Back exam: NORMAL INSPECTION - Neurological Exam Neurological exam: Alert, CN II-XII Intact, Normal Gait, Oriented x3, Reflexes Normal - Psychiatric Exam Psychiatric exam: Normal Affect, Normal Mood - Skin Skin Exam: Dry, Intact, Normal Color, Warm Results - Vital Signs Recent Vital Signs: Last Vital Signs Temp 100.8 F H 11/19/18 16:00 Pulse 117 H 11/19/18 17:30 Resp 27 H 11/19/18 17:30 BP 101/76 11/19/18 17:25 Pulse Ox 99 11/19/18 17:30 - Labs Result Diagrams: 11/19/18 03:15 11/19/18 03:15 Labs: Laboratory Results - last 24 hr 11/18/18 11/18/18 11/18/18 19:42 20:03 21:54 WBC RBC Hgb Hct MCV MCH MCHC RDW Plt Count MPV Neut % (Auto) Lymph % (Auto) [place] % (Auto) Eos % (Auto) Baso % (Auto) Neut # (Auto) Lymph # (Auto) [place] # (Auto) Eos # (Auto) Baso # (Auto) Neutrophils % (Manual) Band Neutrophils % Lymphocytes % (Manual) Monocytes % (Manual) Platelet Estimate PT 13.6 H INR 1.2 APTT 56 H Puncture Site Lr pCO2 38 pO2 86 HCO3 22.1 ABG pH 7.36 ABG Total CO2 22.7 ABG O2 Saturation 97.9 ABG Base Excess -3.6 L Anurag Test Unable ABG Potassium 2.6 L A-a O2 Difference 580.0 Respiratory Index 6.7 Sodium 138.0 Chloride 103.0 Glucose 219 H Lactate 3.0 H Vent Mode Prvc Mechanical Rate 16 FiO2 100.0 Tidal Volume 500 PEEP 8 Potassium Carbon Dioxide Anion Gap BUN Creatinine Est GFR ( Amer) Est GFR (Non-Af Amer) Random Glucose Calcium Phosphorus Magnesium Total Bilirubin AST ALT Alkaline Phosphatase Total Creatine Kinase 269 H CK-MB (Mass) 13.8 H Troponin I 3.3400 H* Total Protein Albumin Globulin Albumin/Globulin Ratio Procalcitonin Arterial Blood Potassium 2.6 L Urine Color Urine Clarity Urine pH Ur Specific [place] Urine Protein Urine Glucose (UA) Urine Ketones Urine Blood Urine Nitrate Urine Bilirubin Urine Urobilinogen Ur Leukocyte Esterase Urine WBC (Auto) Urine RBC (Auto) Hyaline Casts Urine Opiates Screen Urine Methadone Screen Ur Barbiturates Screen Ur Phencyclidine Scrn Ur Amphetamines Screen U Benzodiazepines Scrn U Oth Cocaine Metabols U Cannabinoids Screen Ur L.pneumophila Ag 11/18/18 11/18/18 11/18/18 22:58 22:58 22:58 WBC RBC Hgb Hct MCV MCH MCHC RDW Plt Count MPV Neut % (Auto) Lymph % (Auto) [place] % (Auto) Eos % (Auto) Baso % (Auto) Neut # (Auto) Lymph # (Auto) [place] # (Auto) Eos # (Auto) Baso # (Auto) Neutrophils % (Manual) Band Neutrophils % Lymphocytes % (Manual) Monocytes % (Manual) Platelet Estimate PT INR APTT Puncture Site pCO2 pO2 HCO3 ABG pH ABG Total CO2 ABG O2 Saturation ABG Base Excess Anurag Test ABG Potassium A-a O2 Difference Respiratory Index Sodium Chloride Glucose Lactate Vent Mode Mechanical Rate FiO2 Tidal Volume PEEP Potassium Carbon Dioxide Anion Gap BUN Creatinine Est GFR ( Amer) Est GFR (Non-Af Amer) Random Glucose Calcium Phosphorus Magnesium Total Bilirubin AST ALT Alkaline Phosphatase Total Creatine Kinase CK-MB (Mass) Troponin I Total Protein Albumin Globulin Albumin/Globulin Ratio Procalcitonin Arterial Blood Potassium Urine Color Yellow Urine Clarity Clear Urine pH 5.0 Ur Specific [place] 1.012 Urine Protein Negative Urine Glucose (UA) 1+ H Urine Ketones Negative Urine Blood Negative Urine Nitrate Negative Urine Bilirubin Negative Urine Urobilinogen Normal Ur Leukocyte Esterase Neg Urine WBC (Auto) 3 Urine RBC (Auto) 1 Hyaline Casts 11-20 H Urine Opiates Screen Positive H Urine Methadone Screen Negative Ur Barbiturates Screen Negative Ur Phencyclidine Scrn Negative Ur Amphetamines Screen Negative U Benzodiazepines Scrn Positive U Oth Cocaine Metabols Positive H U Cannabinoids Screen Positive H Ur L.pneumophila Ag Negative 11/19/18 11/19/18 11/19/18 03:15 03:15 03:15 WBC 22.0 H RBC 6.13 H Hgb 17.0 Hct 52.3 H MCV 85.3 MCH 27.7 MCHC 32.5 L RDW 14.5 Plt Count 371 MPV 8.4 Neut % (Auto) 93.5 H Lymph % (Auto) 2.6 L [place] % (Auto) 3.9 Eos % (Auto) 0.0 Baso % (Auto) 0.0 Neut # (Auto) 20.5 H Lymph # (Auto) 0.6 L [place] # (Auto) 0.8 Eos # (Auto) 0.0 Baso # (Auto) 0.0 Neutrophils % (Manual) 93 H Band Neutrophils % 1 Lymphocytes % (Manual) 2 L Monocytes % (Manual) 4 Platelet Estimate Normal PT INR APTT 47 H D Puncture Site pCO2 pO2 HCO3 ABG pH ABG Total CO2 ABG O2 Saturation ABG Base Excess Anurag Test ABG Potassium A-a O2 Difference Respiratory Index Sodium 139 Chloride 102 Glucose Lactate Vent Mode Mechanical Rate FiO2 Tidal Volume PEEP Potassium 4.1 Carbon Dioxide 25 Anion Gap 17 BUN 17 Creatinine 0.7 L Est GFR ( Amer) > 60 Est GFR (Non-Af Amer) > 60 Random Glucose 126 H D Calcium 8.5 L Phosphorus 4.2 Magnesium 1.7 Total Bilirubin 0.9 AST 57 ALT 17 L D Alkaline Phosphatase 71 Total Creatine Kinase 234 H CK-MB (Mass) 20.6 H Troponin I 3.9700 H* Total Protein 7.4 Albumin 4.1 Globulin 3.3 Albumin/Globulin Ratio 1.2 Procalcitonin Arterial Blood Potassium Urine Color Urine Clarity Urine pH Ur Specific [place] Urine Protein Urine Glucose (UA) Urine Ketones Urine Blood Urine Nitrate Urine Bilirubin Urine Urobilinogen Ur Leukocyte Esterase Urine WBC (Auto) Urine RBC (Auto) Hyaline Casts Urine Opiates Screen Urine Methadone Screen Ur Barbiturates Screen Ur Phencyclidine Scrn Ur Amphetamines Screen U Benzodiazepines Scrn U Oth Cocaine Metabols U Cannabinoids Screen Ur L.pneumophila Ag 11/19/18 11/19/18 11/19/18 05:18 10:09 10:09 WBC RBC Hgb Hct MCV MCH MCHC RDW Plt Count MPV Neut % (Auto) Lymph % (Auto) [place] % (Auto) Eos % (Auto) Baso % (Auto) Neut # (Auto) Lymph # (Auto) [place] # (Auto) Eos # (Auto) Baso # (Auto) Neutrophils % (Manual) Band Neutrophils % Lymphocytes % (Manual) Monocytes % (Manual) Platelet Estimate PT INR APTT Puncture Site L rad pCO2 38 pO2 246 H HCO3 24.8 ABG pH 7.41 ABG Total CO2 25.3 ABG O2 Saturation 100.7 H ABG Base Excess -0.3 Anurag Test Pos ABG Potassium 3.9 A-a O2 Difference 420.0 Respiratory Index 1.7 Sodium 138.0 Chloride 106.0 Glucose 127 H Lactate 1.7 Vent Mode Prvc Mechanical Rate 16 FiO2 100.0 Tidal Volume 500 PEEP 8 Potassium Carbon Dioxide Anion Gap BUN Creatinine Est GFR ( Amer) Est GFR (Non-Af Amer) Random Glucose Calcium Phosphorus Magnesium Total Bilirubin AST ALT Alkaline Phosphatase Total Creatine Kinase 230 H CK-MB (Mass) 14.2 H Troponin I 3.5300 H* Total Protein Albumin Globulin Albumin/Globulin Ratio Procalcitonin 0.30 Arterial Blood Potassium 3.9 Urine Color Urine Clarity Urine pH Ur Specific [place] Urine Protein Urine Glucose (UA) Urine Ketones Urine Blood Urine Nitrate Urine Bilirubin Urine Urobilinogen Ur Leukocyte Esterase Urine WBC (Auto) Urine RBC (Auto) Hyaline Casts Urine Opiates Screen Urine Methadone Screen Ur Barbiturates Screen Ur Phencyclidine Scrn Ur Amphetamines Screen U Benzodiazepines Scrn U Oth Cocaine Metabols U Cannabinoids Screen Ur L.pneumophila Ag 11/19/18 11/19/18 10:09 17:31 WBC RBC Hgb Hct MCV MCH MCHC RDW Plt Count MPV Neut % (Auto) Lymph % (Auto) [place] % (Auto) Eos % (Auto) Baso % (Auto) Neut # (Auto) Lymph # (Auto) [place] # (Auto) Eos # (Auto) Baso # (Auto) Neutrophils % (Manual) Band Neutrophils % Lymphocytes % (Manual) Monocytes % (Manual) Platelet Estimate PT INR APTT 39 H D 59 H D Puncture Site pCO2 pO2 HCO3 ABG pH ABG Total CO2 ABG O2 Saturation ABG Base Excess Anurag Test ABG Potassium A-a O2 Difference Respiratory Index Sodium Chloride Glucose Lactate Vent Mode Mechanical Rate FiO2 Tidal Volume PEEP Potassium Carbon Dioxide Anion Gap BUN Creatinine Est GFR ( Amer) Est GFR (Non-Af Amer) Random Glucose Calcium Phosphorus Magnesium Total Bilirubin AST ALT Alkaline Phosphatase Total Creatine Kinase CK-MB (Mass) Troponin I Total Protein Albumin Globulin Albumin/Globulin Ratio Procalcitonin Arterial Blood Potassium Urine Color Urine Clarity Urine pH Ur Specific [place] Urine Protein Urine Glucose (UA) Urine Ketones Urine Blood Urine Nitrate Urine Bilirubin Urine Urobilinogen Ur Leukocyte Esterase Urine WBC (Auto) Urine RBC (Auto) Hyaline Casts Urine Opiates Screen Urine Methadone Screen Ur Barbiturates Screen Ur Phencyclidine Scrn Ur Amphetamines Screen U Benzodiazepines Scrn U Oth Cocaine Metabols U Cannabinoids Screen Ur L.pneumophila Ag Assessment & Plan (1) Respiratory failure Status: Acute (2) CHF (congestive heart failure) Status: Acute (3) NSTEMI (non-ST elevated myocardial infarction) Status: Acute (4) Dyspnea Status: Acute (5) Respiratory tract infection Status: Acute
[2018-11-19] MEDS: Milrinone 20 MG in Dextrose 5% In Water 80 ML IV SCH (21:02)
[2018-11-20] MEDS ORDERED: Esmolol 2,500 MG in Dextrose 5% In Water 240 ML IV SCH (00:20)
[2018-11-20] MEDS: Propofol 10 mg/ml 1,000 MG/100 ML VIAL IV PRN ×3 (00:29→08:28)
[2018-11-20] MEDS: Albuterol-Ipratrop 3 mg / 0.5 (3 ml) UD INH SCH ×7 (01:02→20:07)
[2018-11-20] MEDS: Magnesium Sulfate 1 gm in D5W 1 GM/100 ML BAG IVPB SCH ×2 (01:08→01:30)
[2018-11-20] MEDS: Piperacill/Tazo 3.375gm in Dex 3.375 GM/50 ML BAG IVPB SCH ×3 (02:51→18:15)
--- NOTE | 2018-11-20 03:09 | CARDCATH ---
PROCEDURE DATE: 11/19/2018PROCEDURES PERFORMED: Left heart catheterization with selective left and right coronary angiogram via right radial approach, 6-Frisian right radial arterial access, left ventriculogram, and wrist band for hemostasis. ANGIOGRAPHIC FINDINGS: Left main is a large-sized vessel that bifurcates into left anterior descending and left circumflex coronary artery, free of any obstructive disease. Left anterior descending artery is a large-sized vessel, gives off two medium-sized diagonal branches, has a proximal 55% nonobstructive stenosis. Left circumflex runs in the AV groove, gives off a medium-sized obtuse marginal branch, free of any obstructive disease. Proximal, mid, and distal circ have 0%, proximal LAD 55%. RCA is a large-sized vessel, has a mid 45% nonobstructive stenosis. Left ventricular ejection fraction is 15-20%. EDP 13 mmHg. IMPRESSION: Nonobstructive coronary artery disease, moderate left anterior descending stenosis, severely depressed ejection fraction with global hypokinesis. IMPRESSION: Nonischemic cardiomyopathy, ejection fraction 15-20, moderate left anterior descending disease. RECOMMENDATIONS: Keep the patient is on IV milrinone for inotropic support. Discontinue IV heparin and Brilinta. Titrate medicines for heart failure. Ranjith Glover MD
--- NOTE | 2018-11-20 04:43 | CARD ---
APPROVED REPORT Date of service: 11/19/2018 EXAM: Two-dimensional and M-mode echocardiogram with Doppler and color Doppler. INDICATION Dyspnea Non STEMI elevated troponin, pneumonia 2D DIMENSIONS IVSd1.0 (0.7-1.1cm)Aortic Root (2D)3.5 (2.0-3.7cm) LVDd5.6 (3.9-5.9cm)PWd0.8 (0.7-1.1cm) LA [id number] (18-58mL)LVDs4.1 (2.5-4.0cm) FS (%) 10.0 %LVEF (%)30.0 (>50%) IVC0.00 cm M-Mode DIMENSIONS Left Atrium (MM)3.73 (2.5-4.0cm)IVSd0.78 (0.7-1.1cm) Aortic Root3.95 (2.2-3.7cm)LVDd6.05 (4.0-5.6cm) Aortic Cusp Exc.1.69 (1.5-2.0cm)PWd0.82 (0.7-1.1cm) FS (%) 10 %LVDs5.47 (2.0-3.8cm) TAPSE10.85 cmLVEF (%)21 (>50%) Mitral Valve MV E Pgsskool96.2cm/sMV A Bhyuskzj43.4cm/sE/A ratio1.1 TDI Lateral E' Peak V3.38cm/sMedial E' Peak V2.35cm/sE/Lateral E'21.1 E/Medial E'30.3 Tricuspid Valve TR Peak [id number]/sTR Peak Gr.[id number] LEFT VENTRICLE The Left Ventricle is moderately dilated. There is normal left ventricular wall thickness. Left ventricle systolic function is severely impaired. The Ejection Fraction is <25%. There is severe global hypokinesis of the left ventricle. The left ventricular diastolic function is normal. Apical echoes consistent with trabeculae are noted. Cannot rule out associated thrombi. Suggest repeat study with DEFINITY contrast. RIGHT VENTRICLE The right ventricle is normal size. There is normal right ventricular wall thickness. Systolic function is severely reduced. ATRIA The left atrium size is normal. There is large round echodensity in the right atrium which could represent mass or thrombus. May benefit from JOSE LUIS. Interatrial septal thickening is noted. The thickening of interatrial septum suggests lipomatous hypertrophy. The discontinuity of the interatrial septum is suggestive of an atrial septal defect. Suggest repeat study with agitated saline contrast. AORTIC VALVE The aortic valve is normal in structure. No aortic regurgitation is present. There is no aortic valvular stenosis. There is no aortic valvular vegetation. MITRAL VALVE The mitral valve is normal in structure. There is no evidence of mitral valve prolapse. There is no mitral valve stenosis. Mitral regurgitation is mild. TRICUSPID VALVE The tricuspid valve is normal in structure. There is mild tricuspid regurgitation. Right ventricular systolic pressure is estimated at greater than 60 mmHg. There is severe pulmonary hypertension. PULMONIC VALVE The pulmonic valve is not well visualized. There is no pulmonic valvular regurgitation. GREAT VESSELS The aortic root is normal in size. Dilated IVC with poor inspiration collapse is consistent with elevated right atrial pressure. PERICARDIAL EFFUSION There is no significant pericardial effusion. <Conclusion> Left ventricle systolic function is severely impaired. The Ejection Fraction is <25%. Apical echoes consistent with trabeculae are noted. Cannot rule out associated thrombi. Suggest repeat study with DEFINITY contrast. There is large round echodensity in the right atrium which could represent mass or thrombus. May benefit from JOSE LUIS. The thickening of interatrial septum suggests lipomatous hypertrophy. The discontinuity of the interatrial septum is suggestive of an atrial septal defect. Suggest repeat study with agitated saline contrast. No aortic regurgitation is present. Mitral regurgitation is mild. There is mild tricuspid regurgitation. There is severe pulmonary hypertension. There is no pulmonic valvular regurgitation.
[2018-11-20] MEDS: Milrinone 20 MG in Dextrose 5% In Water 80 ML IV SCH ×3 (06:00→16:52)
[2018-11-20 06:07] LABS: ABG ALLEN TEST POS; ARTERIAL BLOOD GAS HCO3 26.4 mmol/L (21-28); ARTERIAL BLOOD GAS O2 SAT 100.3 % (95-98); ARTERIAL BLOOD GAS PCO2 37 mm/Hg (35-45); ARTERIAL BLOOD GAS PH 7.45 (7.35-7.45); ARTERIAL BLOOD GAS PO2 157 mm/Hg (80-100); ARTERIAL BLOOD GAS TCO2 26.8 mmol/L (22-28)
--- NOTE | 2018-11-20 06:32 | HP ---
HISTORY OF PRESENT ILLNESS: The patient is a 53-year-old male who presented to the hospital with complaints of shortness of breath, weakness, fatigue, tiredness. The patient was found to have pneumonia, pleural effusion. PHYSICAL EXAMINATION: GENERAL: The patient is awake, alert, and oriented. Short of breath at rest. VITAL SIGNS: Temperature 98, pulse 90. HEENT: Within normal limits. NECK: Supple. CHEST: Symmetrical. Decreased air entry. HEART: Regular. ABDOMEN: Soft. EXTREMITIES: No edema. ASSESSMENT AND PLAN: The patient suffers from pneumonia and pleural effusion. The patient is to get bed rest, supportive care. Vielka Stewart MD
[2018-11-20 06:34] LABS: BASO % 0.1 % (0.0-2.0); HEMOGLOBIN 14.9 g/dL (12.0-18.0); LYMPH % 7.4 % (20.0-40.0); MEAN CELL VOLUME 85.5 fL (80.0-94.0); MEAN CORPUSCULAR HEMOGLOBIN 28.3 pg (27.0-31.0); MEAN CORPUSCULAR HGB CONC 33.1 g/dL (33.0-37.0); MONO # 0.9 K/uL (0.0-0.8); MONO % 6.9 % (0.0-10.0); NEUT # 11.3 K/uL (1.8-7.0); NEUT % 85.6 % (50.0-75.0); NRBC % 0.1 % (0.0-2.0); PLATELET COUNT 351 K/uL (130-400); RBC 5.26 Mil/uL (4.40-5.90); RED CELL DISTRIBUTION WIDTH 14.2 % (11.5-14.5); WHITE BLOOD COUNT 13.2 K/uL (4.8-10.8)
[2018-11-20 06:57] LABS: ALBUMIN 3.4 g/dL (3.5-5.0); ALT/SGPT 24 U/L (21-72); AST/SGOT 39 U/L (17-59); BLOOD UREA NITROGEN 25 mg/dL (9-20); CALCIUM 8.1 mg/dl (8.6-10.4); GFR NON-AFRICAN AMERICAN > 60
[2018-11-20 08:50] LABS: LYMPHOCYTE 7 % (20-40); MONOCYTE 6 % (0-10); NEUTROPHIL 87 % (50-75); PLATELET ESTIMATE NORMAL (NORMAL); TOTAL CELLS COUNTED 100
[2018-11-20] MEDS ORDERED: Digoxin 500 mcg/2ml (0.5 mg/2ml) Inj IVP ONE (08:58)
--- NOTE | 2018-11-20 09:03 | RAD ---
Chest x-ray single frontal view HISTORY: Intubated. Comparison: 11/18/2018 Findings: Moderate venous congestion. Confluent somewhat ill-defined airspace consolidative changes seen within the left mid lung zone and right infrahilar region. Bilateral hilar prominence. Atherosclerotic calcification and plaque in the aorta. Cardiomegaly. Degenerative changes in the spine and shoulders. Lines and tubes in stable position. Impression: Moderate venous congestion. Confluent somewhat ill-defined airspace consolidative changes seen within the left mid lung zone and right infrahilar region. Bilateral hilar prominence. Atherosclerotic calcification and plaque in the aorta. Cardiomegaly.
[2018-11-20] MEDS: Azithromycin 500 MG in Sodium Chloride 0.9% 250 ML IVPB SCH (09:57)
[2018-11-20] MEDS ORDERED: Influenza Vaccine 60 mcg/0.5 mL SYR (4YR UP) IM ONE (10:00)
[2018-11-20] MEDS ORDERED: Dexmedetomidine Hydrochloride 200 MCG in Sodium Chloride 0.9% 48 ML IV PRN (10:43)
--- NOTE | 2018-11-20 14:40 | CP.CCUPN ---
<Fuentes Pennington - Last Filed: 11/20/18 14:38> CCU Subjective - Physician Review Subjective (Free Text): Critical Care Progress Note for Dr. Deleon's service Patient seen and examined at bedside. ROS limited 2/2 patient condition. s/p cardiac cath shows clear vessels; EF 10-15 % 11/20/18 14:39 Critical Care Time Spent (in minutes): 35 CCU Objective - Vital Signs / Intake & Output Vital Signs (Last 4 hours): Vital Signs Temp Pulse Resp BP Pulse Ox 11/20/18 14:00 96 H 13 100 11/20/18 13:30 101 H 16 99 11/20/18 13:14 100 H 20 129/73 99 11/20/18 13:00 99 H 17 99 11/20/18 12:30 103 H 21 98 11/20/18 12:14 107 H 21 143/62 100 11/20/18 12:08 114 H 23 141/82 99 11/20/18 12:00 100.2 F H 119 H 23 99 11/20/18 11:30 117 H 26 H 99 11/20/18 11:00 122 H 26 H 100 11/20/18 10:59 131 H 24 146/83 100 Intake and Output (Last 8hrs): Intake & Output 11/19/18 11/20/18 11/20/18 22:59 06:59 14:59 Intake Total 392.1 853.2 1236.3 Output Total 733 915 3284 Balance -57.9 -96.8 236.3 Weight 214 lb 1.102 oz Intake: IV 100 200 4 Intake, IV Amount 292.1 543.2 862.3 L AC 80 20 Left Antecubital 10 Left forearm 122.5 163.2 233.3 Right Proximal Port Wrist 77 Right Wrist 42 212 140 left AC 127.6 88 311 left forearm 40 right wrist 31 Oral 0 0 Tube Feeding 110 320 Other 50 Output: Urine [phone] Urethral (Hatch) 033 393 9372 Other: # Bowel Movements 0 0 0 - Physical Exam Head: Positive for: Atraumatic, Normocephalic Pupils: Positive for: PERRL Extroacular Muscles: Positive for: EOMI Mouth: Positive for: Other (ETT tube and OGT tube) Respiratory/Chest: Positive for: Good Air Exchange, Decreased Breath Sounds. Negative for: Respiratory Distress, Accessory Muscle Use Cardiovascular: Positive for: Regular Rate and Rhythm, Normal S1, S2, Tachycardic. Negative for: Murmurs Abdomen: Positive for: Normal Bowel Sounds. Negative for: Tenderness, Distention Upper Extremity: Positive for: Normal Inspection. Negative for: Cyanosis, Edema Lower Extremity: Positive for: Normal Inspection. Negative for: Edema Neurological: Negative for: GCS=15 Skin: Positive for: Warm, Normal Color Psychiatric: Negative for: Alert, Oriented x 3 - Medications Active Medications: Active Medications Generic Name Dose Route Start Last Admin Trade Name Freq PRN Reason Stop Dose Admin Acetaminophen 650 mg 11/18/18 18:37 11/19/18 16:43 Tylenol 325mg Tab PO 650 mg Q6 PRN Administration pain+fever Albuterol/Ipratropium 3 ml 11/18/18 20:00 11/20/18 13:30 Duoneb 3 Mg/0.5 Mg (3 Ml) Ud INH 3 ml RQ4 NIKITA Administration Aspirin 81 mg 11/19/18 10:00 11/20/18 09:55 Aspirin Chewable PO 81 mg DAILY NIKITA Administration Digoxin 0.25 mg 11/20/18 15:00 Lanoxin IVP 11/21/18 03:01 Q6H NIKITA Heparin Sodium (Porcine) 5,000 units 11/19/18 22:00 11/20/18 13:34 Heparin SC 5,000 units Q8 NIKITA Administration Azithromycin 500 mg/ Sodium 250 mls @ 250 mls/hr 11/19/18 10:00 11/20/18 09:57 Chloride IVPB 250 mls/hr DAILY NIKITA Administration Protocol Piperacillin Sod/Tazobactam Sod 3.375 gm in 50 mls @ 100 mls/hr 11/18/18 19:00 11/20/18 10:11 Zosyn 3.375 Gm Iv Premix IVPB 100 mls/hr Q8H NIKITA Administration Protocol Milrinone Lactate/Dextrose 20 100 mls @ 10.96 mls/hr 11/19/18 20:30 11/20/18 06:00 mg/ Dextrose IV 0.375 mcg/kg/min .Q9H8M NIKITA 10.96 mls/hr Administration Protocol 0.375 MCG/KG/MIN Diltiazem HCl 125 mg/ Dextrose 125 mls @ 20 mls/hr 11/20/18 07:05 11/20/18 13:31 IV Not Given .Q6H15M NIKITA Protocol 20 MG/HR Fentanyl Citrate 2,500 mcg/ 250 mls @ 19.42 mls/hr 11/20/18 11:00 11/20/18 12:48 Sodium Chloride IV 5 mcg/kg/hr .[id number] NIKITA 48.55 mls/hr Titration Protocol 2 MCG/KG/HR Lorazepam 1 mg 11/20/18 10:43 11/20/18 12:47 Ativan IVP 1 mg Q4H PRN Administration Sedation Pantoprazole Sodium 40 mg 11/19/18 10:00 11/20/18 09:56 Protonix Inj IVP 40 mg DAILY NIKITA Administration - Patient Studies Lab Studies: Microbiology Studies 11/18/18 22:58 MRSA Culture (Admit) - Final Nose MRSA NOT DETECTED 11/18/18 22:58 Urine Culture - Final Urine,Hatch No Growth (<1,000 CFU/ML) 11/18/18 17:54 Blood Culture - Preliminary Blood NO GROWTH AFTER 24 HOURS 11/18/18 17:26 Blood Culture - Preliminary Blood NO GROWTH AFTER 24 HOURS 11/19/18 05:20 Gram Stain - Final Sputum Lab Studies 11/20/18 11/20/18 11/20/18 Range/Units 06:26 06:26 05:17 WBC 13.2 H (4.8-10.8) K/uL RBC 5.26 (4.40-5.90) Mil/uL Hgb 14.9 D (12.0-18.0) g/dL Hct 45.0 (35.0-51.0) % MCV 85.5 (80.0-94.0) fL MCH 28.3 (27.0-31.0) pg MCHC 33.1 (33.0-37.0) g/dL RDW 14.2 (11.5-14.5) % Plt Count 351 (130-400) K/uL MPV 9.0 (7.2-11.7) fL Neut % (Auto) 85.6 H (50.0-75.0) % Lymph % (Auto) 7.4 L (20.0-40.0) % [place] % (Auto) 6.9 (0.0-10.0) % Eos % (Auto) 0.0 (0.0-4.0) % Baso % (Auto) 0.1 (0.0-2.0) % Neut # (Auto) 11.3 H (1.8-7.0) K/uL Lymph # (Auto) 1.0 (1.0-4.3) K/uL [place] # (Auto) 0.9 H (0.0-0.8) K/uL Eos # (Auto) 0.0 (0.0-0.7) K/uL Baso # (Auto) 0.0 (0.0-0.2) K/uL Neutrophils % (Manual) 87 H (50-75) % Lymphocytes % (Manual) 7 L (20-40) % Monocytes % (Manual) 6 (0-10) % Platelet Estimate Normal (NORMAL) APTT (21-34) SECONDS Puncture Site R rad pCO2 37 (35-45) mm/Hg pO2 157 H (80-100) mm/Hg HCO3 26.4 (21-28) mmol/L ABG pH 7.45 (7.35-7.45) ABG Total CO2 26.8 (22-28) mmol/L ABG O2 Saturation 100.3 H (95-98) % ABG Base Excess 1.8 (-2.0-3.0) mmol/L Anurag Test Pos ABG Potassium 3.6 (3.6-5.2) mmol/L A-a O2 Difference 225.0 mm/Hg Respiratory Index 1.4 Sodium 133 140.0 (132-148) mmol/l Chloride 98 105.0 (98-107) mmol/L Glucose 133 H (75-110) mg/dl Lactate 2.2 H (0.7-2.1) mmol/L Vent Mode Prvc Mechanical Rate 16 FiO2 60.0 % Tidal Volume 500 PEEP 8 Potassium 3.7 (3.6-5.2) mmol/L Carbon Dioxide 25 (22-30) mmol/L Anion Gap 14 (10-20) BUN 25 H (9-20) mg/dL Creatinine 0.9 (0.8-1.5) mg/dL Est GFR ( Amer) > 60 Est GFR (Non-Af Amer) > 60 Random Glucose 134 H (75-110) mg/dL Calcium 8.1 L (8.6-10.4) mg/dl Phosphorus 3.5 (2.5-4.5) mg/dL Magnesium 2.4 H (1.6-2.3) mg/dL Total Bilirubin 0.5 (0.2-1.3) mg/dL AST 39 (17-59) U/L ALT 24 (21-72) U/L Alkaline Phosphatase 60 (38-126) U/L Total Protein 6.7 (6.3-8.3) g/dL Albumin 3.4 L (3.5-5.0) g/dL Globulin 3.3 (2.2-3.9) gm/dL Albumin/Globulin Ratio 1.0 (1.0-2.1) Arterial Blood Potassium 3.6 (3.6-5.2) mmol/L 11/19/18 Range/Units 17:31 WBC (4.8-10.8) K/uL RBC (4.40-5.90) Mil/uL Hgb (12.0-18.0) g/dL Hct (35.0-51.0) % MCV (80.0-94.0) fL MCH (27.0-31.0) pg MCHC (33.0-37.0) g/dL RDW (11.5-14.5) % Plt Count (130-400) K/uL MPV (7.2-11.7) fL Neut % (Auto) (50.0-75.0) % Lymph % (Auto) (20.0-40.0) % [place] % (Auto) (0.0-10.0) % Eos % (Auto) (0.0-4.0) % Baso % (Auto) (0.0-2.0) % Neut # (Auto) (1.8-7.0) K/uL Lymph # (Auto) (1.0-4.3) K/uL [place] # (Auto) (0.0-0.8) K/uL Eos # (Auto) (0.0-0.7) K/uL Baso # (Auto) (0.0-0.2) K/uL Neutrophils % (Manual) (50-75) % Lymphocytes % (Manual) (20-40) % Monocytes % (Manual) (0-10) % Platelet Estimate (NORMAL) APTT 59 H D (21-34) SECONDS Puncture Site pCO2 (35-45) mm/Hg pO2 (80-100) mm/Hg HCO3 (21-28) mmol/L ABG pH (7.35-7.45) ABG Total CO2 (22-28) mmol/L ABG O2 Saturation (95-98) % ABG Base Excess (-2.0-3.0) mmol/L Anurag Test ABG Potassium (3.6-5.2) mmol/L A-a O2 Difference mm/Hg Respiratory Index Sodium (132-148) mmol/l Chloride (98-107) mmol/L Glucose (75-110) mg/dl Lactate (0.7-2.1) mmol/L Vent Mode Mechanical Rate FiO2 % Tidal Volume PEEP Potassium (3.6-5.2) mmol/L Carbon Dioxide (22-30) mmol/L Anion Gap (10-20) BUN (9-20) mg/dL Creatinine (0.8-1.5) mg/dL Est GFR ( Amer) Est GFR (Non-Af Amer) Random Glucose (75-110) mg/dL Calcium (8.6-10.4) mg/dl Phosphorus (2.5-4.5) mg/dL Magnesium (1.6-2.3) mg/dL Total Bilirubin (0.2-1.3) mg/dL AST (17-59) U/L ALT (21-72) U/L Alkaline Phosphatase (38-126) U/L Total Protein (6.3-8.3) g/dL Albumin (3.5-5.0) g/dL Globulin (2.2-3.9) gm/dL Albumin/Globulin Ratio (1.0-2.1) Arterial Blood Potassium (3.6-5.2) mmol/L Laboratory Results - last 24 hr 11/19/18 11/20/18 11/20/18 17:31 05:17 06:26 WBC 13.2 H RBC 5.26 Hgb 14.9 D Hct 45.0 MCV 85.5 MCH 28.3 MCHC 33.1 RDW 14.2 Plt Count 351 MPV 9.0 Neut % (Auto) 85.6 H Lymph % (Auto) 7.4 L [place] % (Auto) 6.9 Eos % (Auto) 0.0 Baso % (Auto) 0.1 Neut # (Auto) 11.3 H Lymph # (Auto) 1.0 [place] # (Auto) 0.9 H Eos # (Auto) 0.0 Baso # (Auto) 0.0 Neutrophils % (Manual) 87 H Lymphocytes % (Manual) 7 L Monocytes % (Manual) 6 Platelet Estimate Normal APTT 59 H D Puncture Site R rad pCO2 37 pO2 157 H HCO3 26.4 ABG pH 7.45 ABG Total CO2 26.8 ABG O2 Saturation 100.3 H ABG Base Excess 1.8 Anurag Test Pos ABG Potassium 3.6 A-a O2 Difference 225.0 Respiratory Index 1.4 Sodium 140.0 Chloride 105.0 Glucose 133 H Lactate 2.2 H Vent Mode Prvc Mechanical Rate 16 FiO2 60.0 Tidal Volume 500 PEEP 8 Potassium Carbon Dioxide Anion Gap BUN Creatinine Est GFR ( Amer) Est GFR (Non-Af Amer) Random Glucose Calcium Phosphorus Magnesium Total Bilirubin AST ALT Alkaline Phosphatase Total Protein Albumin Globulin Albumin/Globulin Ratio Arterial Blood Potassium 3.6 11/20/18 06:26 WBC RBC Hgb Hct MCV MCH MCHC RDW Plt Count MPV Neut % (Auto) Lymph % (Auto) [place] % (Auto) Eos % (Auto) Baso % (Auto) Neut # (Auto) Lymph # (Auto) [place] # (Auto) Eos # (Auto) Baso # (Auto) Neutrophils % (Manual) Lymphocytes % (Manual) Monocytes % (Manual) Platelet Estimate APTT Puncture Site pCO2 pO2 HCO3 ABG pH ABG Total CO2 ABG O2 Saturation ABG Base Excess Anurag Test ABG Potassium A-a O2 Difference Respiratory Index Sodium 133 Chloride 98 Glucose Lactate Vent Mode Mechanical Rate FiO2 Tidal Volume PEEP Potassium 3.7 Carbon Dioxide 25 Anion Gap 14 BUN 25 H Creatinine 0.9 Est GFR ( Amer) > 60 Est GFR (Non-Af Amer) > 60 Random Glucose 134 H Calcium 8.1 L Phosphorus 3.5 Magnesium 2.4 H Total Bilirubin 0.5 AST 39 ALT 24 Alkaline Phosphatase 60 Total Protein 6.7 Albumin 3.4 L Globulin 3.3 Albumin/Globulin Ratio 1.0 Arterial Blood Potassium Radiology Impressions: Radiology Impressions Chest X-Ray 11/20/18 07:00 Impression: Moderate venous congestion. Confluent somewhat ill-defined airspace consolidative changes seen within the left mid lung zone and right infrahilar region. Bilateral hilar prominence. Atherosclerotic calcification and plaque in the aorta. Cardiomegaly. EKG/Cardiology Studies: Cardiology / EKG Studies 11/19/18 23:27 EKG [ELECTROCARDIOGRAM] Stat Comment: Mode Of Transportation: PORTABLE Reason For Exam: rapid HR Review of Systems - Review of Systems Systems not reviewed;Unavailable: Intubated Critical Care Progress Note - Ventilator Checklist Head of Bed 30 Degrees: Yes Daily Sedation Vacation: Yes Daily Assessment of Readiness to Wean: Yes Daily Spontaneous Breathing Trial: Yes PUD Prophalyxis: Yes DVT Prophylaxis: Yes Oral Care with Chlorhexidine Gluconate {CHG}: Yes - Vent Settings MODE:: PRVC TIDAL VOLUME:: 500 FIO2:: 60 PEEP:: 5 - Extremities/Vascular Does the Patient have a Central Venous Catheter?: No Does the Patient have a Hatch Catheter?: Yes Does the Patient need a Hatch Catheter?: Yes Catheter Insertion Criteria: Need for accurate measurement of output in critically ill patient - Restraints Justification for Restraints: High risk for self extubation, High risk for edvin ving IV access - Prophylaxis GI Prophylaxis GI: PPI - Prophylaxis DVT Prophylaxis DVT: SCDs - Nutrition Nutrition: Nutrition Category Date Time Status NPO Diet [DIET] Diets 11/19/18 Breakfast Active Assessment/Plan - Assessment and Plan (Free Text) Assessment: Patient is a 53 yo male w/ PMH chronic hip and knee pain, 30 years of cocaine abuse, tobacco use, and EtOH abuse admitted to ICU for respiratory distress requiring intubation. s/p cardiac cath clean vessels; EF of 10-15% on primacor and cardizem drip. Neuro Sedated on fentanyl not awake or alert; non communicative Pulm Intubated and on ventilator maintain spo2>92% Duoneb Chest CT initial showed - severe pulm edema Cxr on 11-20: moderate venous congestion CV Cardizem drip Primacor drip s/p cardiac cath- clean vessels, low EF 10-15% Digoxin Aspirin plan for right heart cath GI on tube feeds protonix Endo no acute issues Renal 2 drips running no acute issues ID negative cx white count trending down; no bandemia Azith/Zosyn ppx DVT ppx: Heparin GI ppx: Protonix Disposition: Continue primacor drip, continue cardizem, strict Is/Os, pending right heart cath, consider transfer for LVAD, cardiac transplant; further cardiac management as per cardiology PGY-1 Fuentes Pennington Medical Management discussed with Dr. Deleon <Kareem Deleon - Last Filed: 11/20/18 20:54> CCU Subjective - Physician Review Critical Care Time Spent (in minutes): 52 CCU Objective - Vital Signs / Intake & Output Vital Signs (Last 4 hours): Vital Signs Pulse Resp BP Pulse Ox 11/20/18 19:30 88 19 98 11/20/18 19:13 80 15 128/76 99 11/20/18 19:00 82 18 99 11/20/18 18:30 84 16 100 11/20/18 18:14 85 15 110/72 100 11/20/18 18:00 83 16 99 11/20/18 17:30 80 16 98 11/20/18 17:14 85 16 119/61 100 11/20/18 17:00 85 16 100 11/20/18 16:52 90 20 120/65 100 Intake and Output (Last 8hrs): Intake & Output 11/20/18 11/20/18 11/20/18 06:59 14:59 22:59 Intake Total 853.2 1361.3 968.5 Output Total 950 1000 130 Balance -96.8 361.3 838.5 Weight 214 lb 1.102 oz Intake: IV 200 129 346 Intake, IV Amount 543.2 862.3 422.5 L AC 80 20 50 Left Antecubital 10 Left forearm 163.2 233.3 242.5 Right Proximal Port Wrist 77 55 Right Wrist 212 140 75 left AC 88 311 left forearm 40 right wrist 31 Oral 0 Tube Feeding 110 320 200 Other 50 Output: Urine 950 1000 130 Urethral (Hatch) 950 1000 130 Other: # Bowel Movements 0 0 0 - Medications Active Medications: Active Medications Generic Name Dose Route Start Last Admin Trade Name Freq PRN Reason Stop Dose Admin Acetaminophen 650 mg 11/18/18 18:37 11/19/18 16:43 Tylenol 325mg Tab PO 650 mg Q6 PRN Administration pain+fever Albuterol/Ipratropium 3 ml 11/18/18 20:00 11/20/18 20:07 Duoneb 3 Mg/0.5 Mg (3 Ml) Ud INH 3 ml RQ4 NIKITA Administration Aspirin 81 mg 11/19/18 10:00 11/20/18 09:55 Aspirin Chewable PO 81 mg DAILY NIKITA Administration Digoxin 0.25 mg 11/20/18 15:00 11/20/18 15:19 Lanoxin IVP 11/21/18 03:01 0.25 mg Q6H NIKITA Administration Heparin Sodium (Porcine) 5,000 units 11/19/18 22:00 11/20/18 13:34 Heparin SC 5,000 units Q8 NIKITA Administration Azithromycin 500 mg/ Sodium 250 mls @ 250 mls/hr 11/19/18 10:00 11/20/18 09:57 Chloride IVPB 250 mls/hr DAILY NIKITA Administration Protocol Piperacillin Sod/Tazobactam Sod 3.375 gm in 50 mls @ 100 mls/hr 11/18/18 19:00 11/20/18 18:15 Zosyn 3.375 Gm Iv Premix IVPB 100 mls/hr Q8H NIKITA Administration Protocol Milrinone Lactate/Dextrose 20 100 mls @ 10.96 mls/hr 11/19/18 20:30 11/20/18 16:52 mg/ Dextrose IV 0.375 mcg/kg/min .Q9H8M NIKITA 10.96 mls/hr Administration Protocol 0.375 MCG/KG/MIN Diltiazem HCl 125 mg/ Dextrose 125 mls @ 20 mls/hr 11/20/18 07:05 11/20/18 19:59 IV 10 mg/hr .Q6H15M NIKITA 10 mls/hr Titration Protocol 20 MG/HR Fentanyl Citrate 2,500 mcg/ 250 mls @ 19.42 mls/hr 11/20/18 11:00 11/20/18 17:17 Sodium Chloride IV 5 mcg/kg/hr .[id number] NIKITA 48.55 mls/hr Administration Protocol 2 MCG/KG/HR Lorazepam 2 mg 11/20/18 18:14 11/20/18 18:16 Ativan IVP 2 mg Q4H PRN Administration Sedation Pantoprazole Sodium 40 mg 11/19/18 10:00 11/20/18 09:56 Protonix Inj IVP 40 mg DAILY NIKITA Administration - Patient Studies Lab Studies: Microbiology Studies 11/18/18 17:54 Blood Culture - Preliminary Blood NO GROWTH AFTER 48 HOURS 11/18/18 17:26 Blood Culture - Preliminary Blood NO GROWTH AFTER 48 HOURS 11/18/18 22:58 MRSA Culture (Admit) - Final Nose MRSA NOT DETECTED 11/18/18 22:58 Urine Culture - Final Urine,Hatch No Growth (<1,000 CFU/ML) Lab Studies 11/20/18 11/20/18 11/20/18 Range/Units 06:26 06:26 05:17 WBC 13.2 H (4.8-10.8) K/uL RBC 5.26 (4.40-5.90) Mil/uL Hgb 14.9 D (12.0-18.0) g/dL Hct 45.0 (35.0-51.0) % MCV 85.5 (80.0-94.0) fL MCH 28.3 (27.0-31.0) pg MCHC 33.1 (33.0-37.0) g/dL RDW 14.2 (11.5-14.5) % Plt Count 351 (130-400) K/uL MPV 9.0 (7.2-11.7) fL Neut % (Auto) 85.6 H (50.0-75.0) % Lymph % (Auto) 7.4 L (20.0-40.0) % [place] % (Auto) 6.9 (0.0-10.0) % Eos % (Auto) 0.0 (0.0-4.0) % Baso % (Auto) 0.1 (0.0-2.0) % Neut # (Auto) 11.3 H (1.8-7.0) K/uL Lymph # (Auto) 1.0 (1.0-4.3) K/uL [place] # (Auto) 0.9 H (0.0-0.8) K/uL Eos # (Auto) 0.0 (0.0-0.7) K/uL Baso # (Auto) 0.0 (0.0-0.2) K/uL Neutrophils % (Manual) 87 H (50-75) % Lymphocytes % (Manual) 7 L (20-40) % Monocytes % (Manual) 6 (0-10) % Platelet Estimate Normal (NORMAL) Puncture Site R rad pCO2 37 (35-45) mm/Hg pO2 157 H (80-100) mm/Hg HCO3 26.4 (21-28) mmol/L ABG pH 7.45 (7.35-7.45) ABG Total CO2 26.8 (22-28) mmol/L ABG O2 Saturation 100.3 H (95-98) % ABG Base Excess 1.8 (-2.0-3.0) mmol/L Anurag Test Pos ABG Potassium 3.6 (3.6-5.2) mmol/L A-a O2 Difference 225.0 mm/Hg Respiratory Index 1.4 Sodium 133 140.0 (132-148) mmol/l Chloride 98 105.0 (98-107) mmol/L Glucose 133 H (75-110) mg/dl Lactate 2.2 H (0.7-2.1) mmol/L Vent Mode Prvc Mechanical Rate 16 FiO2 60.0 % Tidal Volume 500 PEEP 8 Potassium 3.7 (3.6-5.2) mmol/L Carbon Dioxide 25 (22-30) mmol/L Anion Gap 14 (10-20) BUN 25 H (9-20) mg/dL Creatinine 0.9 (0.8-1.5) mg/dL Est GFR ( Amer) > 60 Est GFR (Non-Af Amer) > 60 Random Glucose 134 H (75-110) mg/dL Calcium 8.1 L (8.6-10.4) mg/dl Phosphorus 3.5 (2.5-4.5) mg/dL Magnesium 2.4 H (1.6-2.3) mg/dL Total Bilirubin 0.5 (0.2-1.3) mg/dL AST 39 (17-59) U/L ALT 24 (21-72) U/L Alkaline Phosphatase 60 (38-126) U/L Total Protein 6.7 (6.3-8.3) g/dL Albumin 3.4 L (3.5-5.0) g/dL Globulin 3.3 (2.2-3.9) gm/dL Albumin/Globulin Ratio 1.0 (1.0-2.1) Arterial Blood Potassium 3.6 (3.6-5.2) mmol/L Laboratory Results - last 24 hr 11/20/18 11/20/18 11/20/18 05:17 06:26 06:26 WBC 13.2 H RBC 5.26 Hgb 14.9 D Hct 45.0 MCV 85.5 MCH 28.3 MCHC 33.1 RDW 14.2 Plt Count 351 MPV 9.0 Neut % (Auto) 85.6 H Lymph % (Auto) 7.4 L [place] % (Auto) 6.9 Eos % (Auto) 0.0 Baso % (Auto) 0.1 Neut # (Auto) 11.3 H Lymph # (Auto) 1.0 [place] # (Auto) 0.9 H Eos # (Auto) 0.0 Baso # (Auto) 0.0 Neutrophils % (Manual) 87 H Lymphocytes % (Manual) 7 L Monocytes % (Manual) 6 Platelet Estimate Normal Puncture Site R rad pCO2 37 pO2 157 H HCO3 26.4 ABG pH 7.45 ABG Total CO2 26.8 ABG O2 Saturation 100.3 H ABG Base Excess 1.8 Anurag Test Pos ABG Potassium 3.6 A-a O2 Difference 225.0 Respiratory Index 1.4 Sodium 140.0 133 Chloride 105.0 98 Glucose 133 H Lactate 2.2 H Vent Mode Prvc Mechanical Rate 16 FiO2 60.0 Tidal Volume 500 PEEP 8 Potassium 3.7 Carbon Dioxide 25 Anion Gap 14 BUN 25 H Creatinine 0.9 Est GFR ( Amer) > 60 Est GFR (Non-Af Amer) > 60 Random Glucose 134 H Calcium 8.1 L Phosphorus 3.5 Magnesium 2.4 H Total Bilirubin 0.5 AST 39 ALT 24 Alkaline Phosphatase 60 Total Protein 6.7 Albumin 3.4 L Globulin 3.3 Albumin/Globulin Ratio 1.0 Arterial Blood Potassium 3.6 Radiology Impressions: Radiology Impressions Chest X-Ray 11/20/18 07:00 Impression: Moderate venous congestion. Confluent somewhat ill-defined airspace consolidative changes seen within the left mid lung zone and right infrahilar region. Bilateral hilar prominence. Atherosclerotic calcification and plaque in the aorta. Cardiomegaly. EKG/Cardiology Studies: Cardiology / EKG Studies 11/19/18 23:27 EKG [ELECTROCARDIOGRAM] Stat Comment: Mode Of Transportation: PORTABLE Reason For Exam: rapid HR Critical Care Progress Note - Nutrition Nutrition: Nutrition Category Date Time Status NPO Diet [DIET] Diets 11/21/18 Breakfast Active Attending/Attestation - Attestation Notes (Text): 11/20/18 20:51 Today: November The Patient was seen and examined at the bedside, Medical records reviewed, and management issues were discussed and formulated with the house staff. I have reviewed all the relevant clinical, laboratory, hemodynamic, radiographic data and medications Events reviewed Pain issues, skin care, head of the bed elevation, glycemic control were addressed. Agree with above resident's assessment and treatment plans of care as transcribed in Dr. Pennington's note. Critically ill patient with Cardiogenic shock, acute hypoxemic respiratory failure, NSTEMI S/P Cardiac Cath Respiratory and Metabolic acidosis Continue Cardiazem and Primacor drip Start fentanyl drip for possible opioids withdrawal Azithromycin and Zosyn Discussed with the family in details diagnosis, treatment plans and alternatives, GI PPX: Protonix 40 mg PO DVT PPX: SQ Heparin Code status: Full code
[2018-11-20] MEDS: Digoxin 500 mcg/2ml (0.5 mg/2ml) Inj IVP SCH ×2 (15:19→21:30)
--- NOTE | 2018-11-20 18:35 | CP.PCM.PCO ---
Physician Communication Note - Physician Communication Note Physician Communication Note: [phone] Yefri
--- NOTE | 2018-11-20 21:28 | CARD ---
APPROVED REPORT Date of service: 11/19/2018 EKG Measurement Heart [id number] <Conclusion> Atrial fibrillation ST & T wave abnormality, consider lateral ischemia Abnormal ECG
[2018-11-21] MEDS: Milrinone 20 MG in Dextrose 5% In Water 80 ML IV SCH ×6 (00:12→20:32)
[2018-11-21] MEDS: Albuterol-Ipratrop 3 mg / 0.5 (3 ml) UD INH SCH ×4 (01:01→11:22)
[2018-11-21] MEDS: Piperacill/Tazo 3.375gm in Dex 3.375 GM/50 ML BAG IVPB SCH ×3 (02:43→18:02)
[2018-11-21 03:26] VITALS: PULSE 72
[2018-11-21] MEDS: Digoxin 500 mcg/2ml (0.5 mg/2ml) Inj IVP SCH (03:26)
[2018-11-21 05:59] LABS: ABG ALLEN TEST POS; ARTERIAL BLOOD GAS HCO3 29.7 mmol/L (21-28); ARTERIAL BLOOD GAS HEMOGLOBIN 12.4 g/dL (11.7-17.4); ARTERIAL BLOOD GAS O2 SAT 99.5 % (95-98); ARTERIAL BLOOD GAS PCO2 46 mm/Hg (35-45); ARTERIAL BLOOD GAS PH 7.44 (7.35-7.45); ARTERIAL BLOOD GAS PO2 111 mm/Hg (80-100); ARTERIAL BLOOD GAS TCO2 32.6 mmol/L (22-28)
[2018-11-21 06:29] LABS: BASO % 0.3 % (0.0-2.0); EOS % 0.5 % (0.0-4.0); LYMPH # 1.1 K/uL (1.0-4.3); LYMPH % 14.6 % (20.0-40.0); MEAN CELL VOLUME 85.8 fL (80.0-94.0); MEAN CORPUSCULAR HEMOGLOBIN 28.1 pg (27.0-31.0); MEAN CORPUSCULAR HGB CONC 32.7 g/dL (33.0-37.0); MEAN PLATELET VOLUME 8.9 fL (7.2-11.7); MONO # 0.6 K/uL (0.0-0.8); MONO % 7.7 % (0.0-10.0); NEUT # 5.6 K/uL (1.8-7.0); NEUT % 76.9 % (50.0-75.0); NRBC % 0.1 % (0.0-2.0); RBC 4.5 Mil/uL (4.40-5.90); RED CELL DISTRIBUTION WIDTH 13.9 % (11.5-14.5); WHITE BLOOD COUNT 7.3 K/uL (4.8-10.8)
[2018-11-21 06:39] LABS: HEMOGLOBIN 12.6 g/dL (12.0-18.0)
[2018-11-21 06:57] LABS: ALB/GLOB RATIO 1.1 (1.0-2.1); ALBUMIN 3.1 g/dL (3.5-5.0); ALT/SGPT 21 U/L (21-72); AST/SGOT 21 U/L (17-59); BLOOD UREA NITROGEN 26 mg/dL (9-20); CALCIUM 7.7 mg/dl (8.6-10.4); GFR NON-AFRICAN AMERICAN > 60
[2018-11-21] MEDS ORDERED: Potassium Chloride 20 mEq/15 ml LIQ UD PO ONE (08:15)
[2018-11-21] MEDS ORDERED: Pneumococcal 23-Valent Vaccine IM ONE (10:00)
[2018-11-21] MEDS: Azithromycin 500 MG in Sodium Chloride 0.9% 250 ML IVPB SCH (10:05)
--- NOTE | 2018-11-21 12:26 | RAD ---
Date of service: 11/21/2018 HISTORY: intubated, pulm edema COMPARISON: 11/20/2018. FINDINGS: Endotracheal tube terminates 5.5 cm proximal to the alison. The nasogastric tube terminates in the stomach. LUNGS: The lungs are well inflated and clear. There is interval improved aeration in the left lung. There is mild pulmonary venous congestion. PLEURA: Suspect layering left pleural effusion. CARDIOVASCULAR: The heart is normal in size. No aortic atherosclerotic calcifications present. OSSEOUS STRUCTURES: Within normal limits for the patient's age. VISUALIZED UPPER ABDOMEN: Normal. OTHER FINDINGS: None. IMPRESSION: Interval improved aeration in the left lung. Suspect layering left pleural effusion. Stable position of endotracheal and nasogastric tubes.
--- NOTE | 2018-11-21 13:29 | CP.CCUPN ---
<Fuentes Pennington - Last Filed: 11/21/18 13:24> CCU Subjective - Physician Review Subjective (Free Text): Critical Care Progress Note for Dr. Daniels's service Patient seen and examined at bedside. ROS limited 2/2 patient condition. s/p cardiac cath shows clear vessels; EF 10-15 %. Possible plans for extubation today. Critical Care Time Spent (in minutes): 35 CCU Objective - Vital Signs / Intake & Output Vital Signs (Last 4 hours): Vital Signs Temp Pulse Resp BP Pulse Ox 11/21/18 12:31 76 24 109/67 99 11/21/18 12:00 98.7 F 68 16 100 11/21/18 11:56 66 16 109/67 100 11/21/18 11:30 70 16 100 11/21/18 11:00 84 37 H 100 11/21/18 10:56 80 23 102/58 L 100 11/21/18 10:30 59 L 16 100 11/21/18 10:00 59 L 16 100 11/21/18 09:56 58 L 9 L 104/63 100 11/21/18 09:30 80 23 100 Intake and Output (Last 8hrs): Intake & Output 11/20/18 11/21/18 11/21/18 22:59 06:59 14:59 Intake Total 1547.0 962.2 1332.8 Output Total 225 305 160 Balance 1322.0 657.2 1172.8 Weight 213 lb 6.519 oz Intake: IV 596 350 350 Intake, IV Amount 631.0 512.2 882.8 L AC 50 50 500 Left Antecubital 5 Left forearm 388.0 349.2 252.2 Right Proximal Port Wrist 88 88 66 Right Wrist 105 25 left forearm 48.5 right wrist 11.1 Tube Feeding 320 40 0 Other 60 100 Output: Urine 225 305 160 Urethral (Hatch) 225 305 160 Other: # Bowel Movements 0 0 0 - Physical Exam Head: Positive for: Atraumatic, Normocephalic Pupils: Positive for: PERRL Extroacular Muscles: Positive for: EOMI Mouth: Positive for: Other (ETT tube and OGT tube) Respiratory/Chest: Positive for: Good Air Exchange, Decreased Breath Sounds. Negative for: Respiratory Distress, Accessory Muscle Use Cardiovascular: Positive for: Regular Rate and Rhythm, Normal S1, S2. Negative for: Murmurs Abdomen: Positive for: Normal Bowel Sounds. Negative for: Tenderness, Distention Upper Extremity: Positive for: Normal Inspection. Negative for: Cyanosis, Edema Lower Extremity: Positive for: Normal Inspection. Negative for: Edema Neurological: Negative for: GCS=15 Skin: Positive for: Warm, Normal Color Psychiatric: Negative for: Alert, Oriented x 3 - Medications Active Medications: Active Medications Generic Name Dose Route Start Last Admin Trade Name Freq PRN Reason Stop Dose Admin Acetaminophen 650 mg 11/18/18 18:37 11/19/18 16:43 Tylenol 325mg Tab PO 650 mg Q6 PRN Administration pain+fever Albuterol/Ipratropium 3 ml 11/18/18 20:00 11/21/18 11:22 Duoneb 3 Mg/0.5 Mg (3 Ml) Ud INH 3 ml RQ4 NIKITA Administration Aspirin 81 mg 11/19/18 10:00 11/21/18 10:05 Aspirin Chewable PO 81 mg DAILY NIKITA Administration Heparin Sodium (Porcine) 5,000 units 11/19/18 22:00 11/21/18 06:08 Heparin SC 5,000 units Q8 NIKITA Administration Azithromycin 500 mg/ Sodium 250 mls @ 250 mls/hr 11/19/18 10:00 11/21/18 10:05 Chloride IVPB 250 mls/hr DAILY NIKITA Administration Protocol Piperacillin Sod/Tazobactam Sod 3.375 gm in 50 mls @ 100 mls/hr 11/18/18 19:00 11/21/18 11:38 Zosyn 3.375 Gm Iv Premix IVPB 100 mls/hr Q8H NIKITA Administration Protocol Milrinone Lactate/Dextrose 20 100 mls @ 10.96 mls/hr 11/19/18 20:30 11/21/18 12:31 mg/ Dextrose IV 0.375 mcg/kg/min .Q9H8M NIKITA 10.96 mls/hr Administration Protocol 0.375 MCG/KG/MIN Fentanyl Citrate 2,500 mcg/ 250 mls @ 19.42 mls/hr 11/20/18 11:00 11/21/18 10:58 Sodium Chloride IV 5 mcg/kg/hr .[id number] NIKITA 48.55 mls/hr Administration Protocol 2 MCG/KG/HR Lorazepam 2 mg 11/20/18 22:08 11/21/18 12:45 Ativan IVP 2 mg Q2H PRN Administration Sedation Pantoprazole Sodium 40 mg 11/19/18 10:00 11/21/18 10:05 Protonix Inj IVP 40 mg DAILY NIKITA Administration - Patient Studies Lab Studies: Microbiology Studies 11/18/18 17:54 Blood Culture - Preliminary Blood NO GROWTH AFTER 48 HOURS 11/18/18 17:26 Blood Culture - Preliminary Blood NO GROWTH AFTER 48 HOURS 11/18/18 22:58 MRSA Culture (Admit) - Final Nose MRSA NOT DETECTED 11/18/18 22:58 Urine Culture - Final Urine,Hatch No Growth (<1,000 CFU/ML) Lab Studies 11/21/18 11/21/18 11/21/18 Range/Units 06:21 06:21 05:21 WBC 7.3 (4.8-10.8) K/uL RBC 4.50 (4.40-5.90) Mil/uL Hgb 12.6 D (12.0-18.0) g/dL Hct 38.6 (35.0-51.0) % MCV 85.8 (80.0-94.0) fL MCH 28.1 (27.0-31.0) pg MCHC 32.7 L (33.0-37.0) g/dL RDW 13.9 (11.5-14.5) % Plt Count 229 D (130-400) K/uL MPV 8.9 (7.2-11.7) fL Neut % (Auto) 76.9 H (50.0-75.0) % Lymph % (Auto) 14.6 L (20.0-40.0) % [place] % (Auto) 7.7 (0.0-10.0) % Eos % (Auto) 0.5 (0.0-4.0) % Baso % (Auto) 0.3 (0.0-2.0) % Neut # (Auto) 5.6 (1.8-7.0) K/uL Lymph # (Auto) 1.1 (1.0-4.3) K/uL [place] # (Auto) 0.6 (0.0-0.8) K/uL Eos # (Auto) 0.0 (0.0-0.7) K/uL Baso # (Auto) 0.0 (0.0-0.2) K/uL Puncture Site R rad pCO2 46 H (35-45) mm/Hg pO2 111 H (80-100) mm/Hg HCO3 29.7 H (21-28) mmol/L ABG pH 7.44 (7.35-7.45) ABG Total CO2 32.6 H (22-28) mmol/L ABG O2 Saturation 99.5 H (95-98) % ABG Base Excess 6.1 H (-2.0-3.0) mmol/L ABG Hemoglobin 12.4 (11.7-17.4) g/dL ABG Carboxyhemoglobin 2.0 H (0.5-1.5) % POC ABG HHb (Measured) 0.5 (0.0-5.0) % ABG Methemoglobin 0.9 (0.0-3.0) % Anurag Test Pos A-a O2 Difference 259.0 mm/Hg Respiratory Index 2.3 Hgb O2 Saturation 96.6 (95.0-98.0) % Vent Mode Prvc Mechanical Rate 16 FiO2 60.0 % Tidal Volume 500 PEEP 8 Sodium 140 (132-148) mmol/L Potassium 3.2 L (3.6-5.2) mmol/L Chloride 101 (98-107) mmol/L Carbon Dioxide 29 (22-30) mmol/L Anion Gap 13 (10-20) BUN 26 H (9-20) mg/dL Creatinine 0.7 L (0.8-1.5) mg/dL Est GFR ( Amer) > 60 Est GFR (Non-Af Amer) > 60 Random Glucose 127 H (75-110) mg/dL Calcium 7.7 L (8.6-10.4) mg/dl Phosphorus 2.9 (2.5-4.5) mg/dL Magnesium 2.3 (1.6-2.3) mg/dL Total Bilirubin 0.5 (0.2-1.3) mg/dL AST 21 (17-59) U/L ALT 21 (21-72) U/L Alkaline Phosphatase 45 (38-126) U/L Total Protein 5.9 L (6.3-8.3) g/dL Albumin 3.1 L (3.5-5.0) g/dL Globulin 2.8 (2.2-3.9) gm/dL Albumin/Globulin Ratio 1.1 (1.0-2.1) Laboratory Results - last 24 hr 11/21/18 11/21/18 11/21/18 05:21 06:21 06:21 WBC 7.3 RBC 4.50 Hgb 12.6 D Hct 38.6 MCV 85.8 MCH 28.1 MCHC 32.7 L RDW 13.9 Plt Count 229 D MPV 8.9 Neut % (Auto) 76.9 H Lymph % (Auto) 14.6 L [place] % (Auto) 7.7 Eos % (Auto) 0.5 Baso % (Auto) 0.3 Neut # (Auto) 5.6 Lymph # (Auto) 1.1 [place] # (Auto) 0.6 Eos # (Auto) 0.0 Baso # (Auto) 0.0 Puncture Site R rad pCO2 46 H pO2 111 H HCO3 29.7 H ABG pH 7.44 ABG Total CO2 32.6 H ABG O2 Saturation 99.5 H ABG Base Excess 6.1 H ABG Hemoglobin 12.4 ABG Carboxyhemoglobin 2.0 H POC ABG HHb (Measured) 0.5 ABG Methemoglobin 0.9 Anurag Test Pos A-a O2 Difference 259.0 Respiratory Index 2.3 Hgb O2 Saturation 96.6 Vent Mode Prvc Mechanical Rate 16 FiO2 60.0 Tidal Volume 500 PEEP 8 Sodium 140 Potassium 3.2 L Chloride 101 Carbon Dioxide 29 Anion Gap 13 BUN 26 H Creatinine 0.7 L Est GFR ( Amer) > 60 Est GFR (Non-Af Amer) > 60 Random Glucose 127 H Calcium 7.7 L Phosphorus 2.9 Magnesium 2.3 Total Bilirubin 0.5 AST 21 ALT 21 Alkaline Phosphatase 45 Total Protein 5.9 L Albumin 3.1 L Globulin 2.8 Albumin/Globulin Ratio 1.1 Radiology Impressions: Radiology Impressions Chest X-Ray 11/21/18 07:00 IMPRESSION: Interval improved aeration in the left lung. Suspect layering left pleural effusion. Stable position of endotracheal and nasogastric tubes. Review of Systems - Review of Systems Systems not reviewed;Unavailable: Intubated Critical Care Progress Note - Ventilator Checklist Head of Bed 30 Degrees: Yes Daily Sedation Vacation: Yes Daily Assessment of Readiness to Wean: Yes Daily Spontaneous Breathing Trial: Yes PUD Prophalyxis: Yes DVT Prophylaxis: Yes Oral Care with Chlorhexidine Gluconate {CHG}: Yes - Vent Settings MODE:: PRVC TIDAL VOLUME:: 500 RESP RATE:: 16 FIO2:: 40 PEEP:: 5 - Extremities/Vascular Does the Patient have a Central Venous Catheter?: No Does the Patient need a Central Venous Catheter?: No Does the Patient have a Hatch Catheter?: Yes Does the Patient need a Hatch Catheter?: Yes Catheter Insertion Criteria: Need for accurate measurement of output in critically ill patient - Restraints Justification for Restraints: High risk for self extubation, High risk for removing IV access, High risk for harming self - Prophylaxis GI Prophylaxis GI: PPI - Prophylaxis DVT Prophylaxis DVT: Heparin SQ Assessment/Plan - Assessment and Plan (Free Text) Assessment: Patient is a 53 yo male w/ PMH chronic hip and knee pain, 30 years of cocaine abuse, tobacco use, and EtOH abuse admitted to ICU for respiratory distress requiring intubation. s/p cardiac cath clean vessels; EF of 10-15% on primacor Neuro Sedated on fentanyl; Atvan PRN; Versed 1x given for agitation not awake or alert; non communicative Pulm Intubated and on ventilator ; possible extubation later today maintain spo2>92% Duoneb Chest CT initial showed - severe pulm edema Cxr on 11-21: improved aeration of left lung; suspect left pleural effusion CV Primacor drip s/p cardiac cath- clean vessels, low EF 10-15% Aspirin GI on tube feeds protonix Endo no acute issues Renal no active issues ID negative cx no white count; no bandemia Azith/Zosyn ppx DVT ppx: Heparin GI ppx: Protonix Tylenol PRN Disposition: Continue primacor drip, strict Is/Os, possible extubation today; s/p extubation further management of heart failure as per cardio PGY-1 [facility] Penning[facility] Management discussed with Dr. Daniels <Bekah Daniels - Last Filed: 11/21/18 17:09> CCU Objective - Vital Signs / Intake & Output Vital Signs (Last 4 hours): Vital Signs Pulse Resp BP Pulse Ox 11/21/18 15:00 70 8 L 98 11/21/18 14:56 79 9 L 123/66 95 11/21/18 14:30 67 16 100 11/21/18 14:00 70 16 100 11/21/18 13:56 73 16 109/63 99 11/21/18 13:30 74 16 100 Intake and Output (Last 8hrs): Intake & Output 11/21/18 11/21/18 11/21/18 06:59 14:59 22:59 Intake Total 962.2 1451.8 11 Output Total 305 200 20 Balance 657.2 1251.8 -9 Weight 213 lb 6.519 oz Intake: IV 350 350 Intake, IV Amount 512.2 1001.8 11 L AC 50 500 Left Antecubital 5 Left forearm 349.2 349.2 0 Right Proximal Port Wrist 88 88 11 Right Wrist 25 left forearm 48.5 right wrist 11.1 Tube Feeding 40 0 0 Other 60 100 Output: Urine 305 200 20 Urethral (Hatch) 305 200 20 Other: # Bowel Movements 0 0 0 - Medications Active Medications: Active Medications Generic Name Dose Route Start Last Admin Trade Name Freq PRN Reason Stop Dose Admin Acetaminophen 650 mg 11/18/18 18:37 11/19/18 16:43 Tylenol 325mg Tab PO 650 mg Q6 PRN Administration pain+fever Aspirin 81 mg 11/19/18 10:00 11/21/18 10:05 Aspirin Chewable PO 81 mg DAILY NIKITA Administration Heparin Sodium (Porcine) 5,000 units 11/19/18 22:00 11/21/18 14:41 Heparin SC 5,000 units Q8 NIKITA Administration Azithromycin 500 mg/ Sodium 250 mls @ 250 mls/hr 11/19/18 10:00 11/21/18 10:05 Chloride IVPB 250 mls/hr DAILY NIKITA Administration Protocol Piperacillin Sod/Tazobactam Sod 3.375 gm in 50 mls @ 100 mls/hr 11/18/18 19:00 11/21/18 11:38 Zosyn 3.375 Gm Iv Premix IVPB 100 mls/hr Q8H NIKITA Administration Protocol Milrinone Lactate/Dextrose 20 100 mls @ 10.96 mls/hr 11/19/18 20:30 11/21/18 12:31 mg/ Dextrose IV 0.375 mcg/kg/min .Q9H8M NIKITA 10.96 mls/hr Administration Protocol 0.375 MCG/KG/MIN Oxycodone/Acetaminophen 1 tab 11/21/18 15:42 Percocet 5/325 Mg Tab PO 11/24/18 15:43 Q6H PRN Pain, moderate (4-7) Pantoprazole Sodium 40 mg 11/19/18 10:00 11/21/18 10:05 Protonix Inj IVP 40 mg DAILY NIKITA Administration - Patient Studies Lab Studies: Microbiology Studies 11/19/18 05:20 Gram Stain - Final Sputum Sputum Culture - Preliminary Staphylococcus Aureus 11/18/18 17:54 Blood Culture - Preliminary Blood NO GROWTH AFTER 48 HOURS 11/18/18 17:26 Blood Culture - Preliminary Blood NO GROWTH AFTER 48 HOURS Lab Studies 11/21/18 11/21/18 11/21/18 Range/Units 06:21 06:21 05:21 WBC 7.3 (4.8-10.8) K/uL RBC 4.50 (4.40-5.90) Mil/uL Hgb 12.6 D (12.0-18.0) g/dL Hct 38.6 (35.0-51.0) % MCV 85.8 (80.0-94.0) fL MCH 28.1 (27.0-31.0) pg MCHC 32.7 L (33.0-37.0) g/dL RDW 13.9 (11.5-14.5) % Plt Count 229 D (130-400) K/uL MPV 8.9 (7.2-11.7) fL Neut % (Auto) 76.9 H (50.0-75.0) % Lymph % (Auto) 14.6 L (20.0-40.0) % [place] % (Auto) 7.7 (0.0-10.0) % Eos % (Auto) 0.5 (0.0-4.0) % Baso % (Auto) 0.3 (0.0-2.0) % Neut # (Auto) 5.6 (1.8-7.0) K/uL Lymph # (Auto) 1.1 (1.0-4.3) K/uL [place] # (Auto) 0.6 (0.0-0.8) K/uL Eos # (Auto) 0.0 (0.0-0.7) K/uL Baso # (Auto) 0.0 (0.0-0.2) K/uL Puncture Site R rad pCO2 46 H (35-45) mm/Hg pO2 111 H (80-100) mm/Hg HCO3 29.7 H (21-28) mmol/L ABG pH 7.44 (7.35-7.45) ABG Total CO2 32.6 H (22-28) mmol/L ABG O2 Saturation 99.5 H (95-98) % ABG Base Excess 6.1 H (-2.0-3.0) mmol/L ABG Hemoglobin 12.4 (11.7-17.4) g/dL ABG Carboxyhemoglobin 2.0 H (0.5-1.5) % POC ABG HHb (Measured) 0.5 (0.0-5.0) % ABG Methemoglobin 0.9 (0.0-3.0) % Anurag Test Pos A-a O2 Difference 259.0 mm/Hg Respiratory Index 2.3 Hgb O2 Saturation 96.6 (95.0-98.0) % Vent Mode Prvc Mechanical Rate 16 FiO2 60.0 % Tidal Volume 500 PEEP 8 Sodium 140 (132-148) mmol/L Potassium 3.2 L (3.6-5.2) mmol/L Chloride 101 (98-107) mmol/L Carbon Dioxide 29 (22-30) mmol/L Anion Gap 13 (10-20) BUN 26 H (9-20) mg/dL Creatinine 0.7 L (0.8-1.5) mg/dL Est GFR ( Amer) > 60 Est GFR (Non-Af Amer) > 60 Random Glucose 127 H (75-110) mg/dL Calcium 7.7 L (8.6-10.4) mg/dl Phosphorus 2.9 (2.5-4.5) mg/dL Magnesium 2.3 (1.6-2.3) mg/dL Total Bilirubin 0.5 (0.2-1.3) mg/dL AST 21 (17-59) U/L ALT 21 (21-72) U/L Alkaline Phosphatase 45 (38-126) U/L Total Protein 5.9 L (6.3-8.3) g/dL Albumin 3.1 L (3.5-5.0) g/dL Globulin 2.8 (2.2-3.9) gm/dL Albumin/Globulin Ratio 1.1 (1.0-2.1) Laboratory Results - last 24 hr 11/21/18 11/21/18 11/21/18 05:21 06:21 06:21 WBC 7.3 RBC 4.50 Hgb 12.6 D Hct 38.6 MCV 85.8 MCH 28.1 MCHC 32.7 L RDW 13.9 Plt Count 229 D MPV 8.9 Neut % (Auto) 76.9 H Lymph % (Auto) 14.6 L [place] % (Auto) 7.7 Eos % (Auto) 0.5 Baso % (Auto) 0.3 Neut # (Auto) 5.6 Lymph # (Auto) 1.1 [place] # (Auto) 0.6 Eos # (Auto) 0.0 Baso # (Auto) 0.0 Puncture Site R rad pCO2 46 H pO2 111 H HCO3 29.7 H ABG pH 7.44 ABG Total CO2 32.6 H ABG O2 Saturation 99.5 H ABG Base Excess 6.1 H ABG Hemoglobin 12.4 ABG Carboxyhemoglobin 2.0 H POC ABG HHb (Measured) 0.5 ABG Methemoglobin 0.9 Anurag Test Pos A-a O2 Difference 259.0 Respiratory Index 2.3 Hgb O2 Saturation 96.6 Vent Mode Prvc Mechanical Rate 16 FiO2 60.0 Tidal Volume 500 PEEP 8 Sodium 140 Potassium 3.2 L Chloride 101 Carbon Dioxide 29 Anion Gap 13 BUN 26 H Creatinine 0.7 L Est GFR ( Amer) > 60 Est GFR (Non-Af Amer) > 60 Random Glucose 127 H Calcium 7.7 L Phosphorus 2.9 Magnesium 2.3 Total Bilirubin 0.5 AST 21 ALT 21 Alkaline Phosphatase 45 Total Protein 5.9 L Albumin 3.1 L Globulin 2.8 Albumin/Globulin Ratio 1.1 Radiology Impressions: Radiology Impressions Chest X-Ray 11/21/18 07:00 IMPRESSION: Interval improved aeration in the left lung. Suspect layering left pleural effusion. Stable position of endotracheal and nasogastric tubes. Assessment/Plan - Assessment and Plan (Free Text) Plan: Patient seen and examined at bedside. Patient awake, alert off sedatoin -Hypoxic respiratory failure: tolerated CPAP, will extubate, avoid IV fentanly adn Iv ativan -Severe systolic heart failure: currently on milrinone, titrate off milrinon, start coreg, add acei as BP tolerates, start statin + asa if no contraindication, cardiology follow up -?Lobar PNA: continue empirical abx, shorten abx course if no cultures identified -PAtient tolerates CPAP and was extubated -continue dvt/pud ppx -Patient was informed of his severe heart failure and advised to stop cocaine use as it can wrosen his heart failure. -Encourage oral diet -Patient claims he has b/l severe osteoarthritis and is awaiting knee replacement at [facility] -Paitent also claims to use 1 tab oxycodone q6hrs PRN for knee pain -PAtient remains extubated and breathing comfortably. -Possible transfer to [place] by Dr. Glover. cc time 10 (35 with residents) + 10 minutes extubating patient - Date & Time Date: 11/21/18 Time: 17:09
[2018-11-21] MEDS ORDERED: MethylPREDNISolone 40 mg Vial IVP ONE ×2 (16:00→17:45)
--- NOTE | 2018-11-21 17:14 | CP.PCM.PN ---
Subjective - Date & Time of Evaluation Date of Evaluation: 11/21/18 Time of Evaluation: 17:14 - Subjective Subjective: afib w/RVR chf extubated , awake in bed mild respiratory distress Objective - Vital Signs/Intake and Output Vital Signs (last 24 hours): Temp Pulse Resp BP Pulse Ox 98.7 F 70 8 L 123/66 98 11/21/18 12:00 11/21/18 15:00 11/21/18 15:00 11/21/18 14:56 11/21/18 15:00 Intake and Output: 11/21/18 11/21/18 06:59 18:59 Intake Total 1705.2 1462.8 Output Total 415 220 Balance 1290.2 1242.8 - Medications Medications: Current Medications Aspirin (Aspirin Chewable) 81 mg PO DAILY [facility] Last Admin: 11/21/18 10:05 Dose: 81 mg Carvedilol (Coreg) 6.25 mg PO Q12 NIKITA Heparin Sodium (Porcine) (Heparin) 5,000 units SC Q8 [facility] Last Admin: 11/21/18 14:41 Dose: 5,000 units Piperacillin Sod/Tazobactam Sod (Zosyn 3.375 Gm Iv Premix) 3.375 gm in 50 mls @ 100 mls/hr IVPB Q8H [facility]; Protocol Last Admin: 11/21/18 11:38 Dose: 100 mls/hr Milrinone Lactate/Dextrose 20 (mg/ Dextrose) 100 mls @ 10.96 mls/hr IV .Q9H8M [facility]; Protocol Last Admin: 11/21/18 12:31 Dose: 0.375 mcg/kg/min, 10.96 mls/hr Vancomycin HCl 1 gm/ Sodium (Chloride) 250 mls @ 166.7 mls/hr IVPB Q24H [facility]; Protocol Oxycodone/Acetaminophen (Percocet 5/325 Mg Tab) 1 tab PO Q6H PRN PRN Reason: Pain, moderate (4-7) Stop: 11/24/18 15:43 Pantoprazole Sodium (Protonix Inj) 40 mg IVP DAILY [facility] Last Admin: 11/21/18 10:05 Dose: 40 mg Rosuvastatin Calcium (Crestor) 5 mg PO HS [facility] - Labs Labs: 11/21/18 06:21 11/21/18 06:21 PT 13.6 SECONDS (9.7-12.2) H 11/18/18 20:03 INR 1.2 11/18/18 20:03 APTT 59 SECONDS (21-34) H D 11/19/18 17:31 - Constitutional Appears: Well - Head Exam Head Exam: ATRAUMATIC, NORMAL INSPECTION, NORMOCEPHALIC - Eye Exam Eye Exam: EOMI, Normal appearance, PERRL Pupil Exam: NORMAL ACCOMODATION, PERRL - ENT Exam ENT Exam: Mucous Membranes Moist, Normal Exam - Neck Exam Neck Exam: Full ROM, Normal Inspection. absent: Lymphadenopathy - Respiratory Exam Respiratory Exam: Clear to Ausculation Bilateral, Rales, NORMAL BREATHING PATTERN - Cardiovascular Exam Cardiovascular Exam: REGULAR RHYTHM, +S1, +S2, Murmur - GI/Abdominal Exam GI & Abdominal Exam: Soft, Normal Bowel Sounds. absent: Tenderness - Extremities Exam Extremities Exam: Full ROM, Normal Capillary Refill, Normal Inspection. absent: Joint Swelling, Pedal Edema - Back Exam Back Exam: NORMAL INSPECTION - Neurological Exam Neurological Exam: Alert, Awake, CN II-XII Intact, Normal Gait, Oriented x3 - Psychiatric Exam Psychiatric exam: Normal Affect, Normal Mood - Skin Skin Exam: Dry, Intact, Normal Color, Warm Assessment and Plan (1) CHF (congestive heart failure) Assessment & Plan: RHCx Status: Acute (2) Respiratory failure Status: Acute (3) NSTEMI (non-ST elevated myocardial infarction) Status: Acute (4) Dyspnea Status: Acute (5) Respiratory tract infection Status: Acute
[2018-11-21] MEDS ORDERED: Vancomycin 1 gm/NS 200 ml 1 GM/200 ML BAG IVPB SCH (18:00)
[2018-11-22] MEDS: Oxycodone/Acetaminophen 5/325 mg Tab PO PRN ×4 (00:48→20:30)
--- NOTE | 2018-11-22 02:04 | CON ---
DATE: 11/21/2018 CONSULT SERVICE: Clinical cardiac electrophysiology. PHYSICIAN PERFORMING CONSULT: Dani Cervantes MD PHYSICIAN REQUESTING CONSULT: Ranjith Glover MD REASON FOR CONSULTATION: New diagnosis of nonischemic cardiomyopathy and advanced congestive heart failure. HISTORY OF PRESENT ILLNESS: Mr. Conrad Durham is a 53-year-old male with a history of minimal medical care in the past, osteoarthritis of his knees, illicit drug use, who presented to [facility] 2 days ago with 1 or 2 days of acute onset and progressively worsening shortness of breath. When he came to the hospital, he was noted to have an elevated white count and a chest CT diagnostic of either pneumonia or congestive heart failure, and he sustained a respiratory arrest. Again, this arrest was not arrhythmic in nature according to the notes or the medical staff. He also had elevated troponins of about 3, and his initial EKG demonstrated sinus tachycardia with deep symmetric T-waves, and he underwent cardiac catheterization. Cardiac catheterization demonstrated normal, nonobstructive coronary disease, and a severely depressed LV ejection fraction of about 10% to 15%. He also demonstrated 12 to 15 hours, it appears, of atrial fibrillation with rapid antegrade conduction and narrow QRS, but has spontaneously converted to normal sinus rhythm. He has been extubated today, still somewhat drowsy, but he is able to provide some history. His brother is also at his bedside. Historically, the patient denies any history of syncope, chest pain, lightheadedness, or palpitations. The shortness of breath that he describes that he has had on and off in the past but most recently in the last day or two has been profoundly worse which prompted his hospital admission. He has not been taking much in the way of medications. He has used illicit drugs on and off for several years, which include marijuana and possibly cocaine, also some degree of alcohol use. His EKG currently demonstrates sinus and sinus tachycardia with normal antegrade conduction and narrow QRS. He also does have profound T-wave changes. FAMILY HISTORY: Notable for coronary disease and MIs in the family, hypertension. SOCIAL HISTORY: Drug use noted above, he is currently unemployed. PHYSICAL EXAMINATION: VITAL SIGNS: The patient's blood pressure is 124/73, heart rate of 77, respiratory rate of 15. GENERAL: The patient is oriented, conversant, minimally drowsy. NECK: Supple. LUNGS: Decreased breath sounds at the base. GI: Abdomen is soft. EXTREMITIES: Trace edema. CARDIOVASCULAR: Regular. S1, S2. No murmurs appreciated. SKIN: Multiple tattoos. NEUROLOGIC: Grossly intact. PSYCHIATRIC: Relatively normal affect. OBJECTIVE: Data reviewed. ASSESSMENT: Mr. Conrad Durham has what appears to be a "new" diagnosis of nonischemic cardiomyopathy and profoundly low ejection fraction with concomitant heart failure. He is currently on intravenous milrinone and is undergoing an evaluation and workup from Cardiology's perspective. The exact etiology of his cardiomyopathy is unknown, although I suspect that some of this may be in the setting of his alcohol and drug use. With the T-wave inversions on electrocardiogram, certainly his electrocardiogram should be reviewed for any signs of Takotsubo or potentially new onset viral cardiomyopathy. From electrophysiology perspective, we will have to follow him carefully. As this is a new diagnosis, he will likely to have to refrain from illicits and be started on appropriate medical therapy with reassessment of his left ventricular ejection fraction in 3 months. From atrial fibrillation perspective, he likely has paroxysmal atrial fibrillation. He appears to have a CHADS-VASc of 1, although other factors may be apparent as well. When he is appropriate per Cardiology and intensive care unit teams, anticoagulation can be considered. I discussed this at length with the patient as well as the patient's brother. For now, it appears that he may need hemodynamic support, and he may be transferred to another hospital. Thank you very much for allowing me to participate in the care of this patient. Dani Cervantes MD
[2018-11-22] MEDS: Piperacill/Tazo 3.375gm in Dex 3.375 GM/50 ML BAG IVPB SCH ×2 (02:36→10:55)
[2018-11-22] MEDS: Milrinone 20 MG in Dextrose 5% In Water 80 ML IV SCH ×2 (04:10→06:00)
[2018-11-22 07:11] LABS: ALB/GLOB RATIO 1.2 (1.0-2.1); ALBUMIN 3.3 g/dL (3.5-5.0); ALT/SGPT 20 U/L (21-72); AST/SGOT 23 U/L (17-59); BLOOD UREA NITROGEN 17 mg/dL (9-20); CALCIUM 7.9 mg/dl (8.6-10.4); GFR NON-AFRICAN AMERICAN > 60
[2018-11-22 07:30] LABS: BASO % 0.1 % (0.0-2.0); EOS % 0.1 % (0.0-4.0); HEMOGLOBIN 12.1 g/dL (12.0-18.0); LYMPH # 0.4 K/uL (1.0-4.3); LYMPH % 6.1 % (20.0-40.0); MEAN CELL VOLUME 85.6 fL (80.0-94.0); MEAN CORPUSCULAR HEMOGLOBIN 28.5 pg (27.0-31.0); MEAN CORPUSCULAR HGB CONC 33.2 g/dL (33.0-37.0); MEAN PLATELET VOLUME 9.3 fL (7.2-11.7); MONO # 0.4 K/uL (0.0-0.8); MONO % 5.7 % (0.0-10.0); NEUT # 6.1 K/uL (1.8-7.0); PLATELET COUNT 237 K/uL (130-400); RBC 4.23 Mil/uL (4.40-5.90); WHITE BLOOD COUNT 6.9 K/uL (4.8-10.8)
[2018-11-22 08:52] LABS: LYMPHOCYTE 4 % (20-40); MONOCYTE 6 % (0-10); NEUTROPHIL 90 % (50-75); PLATELET ESTIMATE NORMAL (NORMAL); TOTAL CELLS COUNTED 100
[2018-11-22] MEDS ORDERED: Magnesium Sulfate 1 gm in D5W 1 GM/100 ML BAG IVPB ONE (09:22)
[2018-11-22] MEDS: Potassium Chloride 20 mEq ER Tab PO SCH ×2 (09:45→16:38)
--- NOTE | 2018-11-22 10:16 | CARD ---
APPROVED REPORT Date of service: 11/18/2018 EKG Measurement Heart [id number] <Conclusion> Sinus tachycardia Possible Left atrial enlargement Septal infarct, age undetermined ST & T wave abnormality, consider lateral ischemia Abnormal ECG
--- NOTE | 2018-11-22 10:16 | CARD ---
APPROVED REPORT Date of service: 11/18/2018 EKG Measurement Heart [id number] <Conclusion> Sinus tachycardia Cannot rule out Anterior infarct, age undetermined T wave abnormality, consider lateral ischemia Abnormal ECG
--- NOTE | 2018-11-22 10:57 | CP.PCM.PN ---
Subjective - Date & Time of Evaluation Date of Evaluation: 11/22/18 Time of Evaluation: 10:55 - Subjective Subjective: Patient sleeping comfortably Objective - Vital Signs/Intake and Output Vital Signs (last 24 hours): Temp Pulse Resp BP Pulse Ox 98.2 F 74 12 130/89 97 11/22/18 08:00 11/22/18 10:00 11/22/18 10:00 11/22/18 09:56 11/22/18 10:00 Intake and Output: 11/22/18 11/22/18 06:59 18:59 Intake Total 1892.1 Output Total 800 Balance 1092.1 - Medications Medications: Current Medications Aspirin (Aspirin Chewable) 81 mg PO DAILY [facility] Last Admin: 11/22/18 09:44 Dose: 81 mg Carvedilol (Coreg) 6.25 mg PO Q12 [facility] Last Admin: 11/22/18 09:44 Dose: 6.25 mg Heparin Sodium (Porcine) (Heparin) 5,000 units SC Q8 [facility] Last Admin: 11/22/18 06:38 Dose: 5,000 units Piperacillin Sod/Tazobactam Sod (Zosyn 3.375 Gm Iv Premix) 3.375 gm in 50 mls @ 100 mls/hr IVPB Q8H [facility]; Protocol Last Admin: 11/22/18 02:36 Dose: 100 mls/hr Vancomycin/Sodium Chloride (Vancomycin 1 Gm/Ns 200 Ml) 1 gm in 200 mls @ 133.333 mls/hr IVPB Q24H [facility]; Protocol Stop: 11/26/18 18:01 Last Admin: 11/21/18 18:29 Dose: 133.333 mls/hr Potassium Chloride (Potassium Chloride 10 Meq/100 Ml) 10 meq in 100 mls @ 100 mls/hr IVPB Q1H [facility] Stop: 11/22/18 12:29 Last Admin: 11/22/18 10:54 Dose: 100 mls/hr Oxycodone/Acetaminophen (Percocet 5/325 Mg Tab) 1 tab PO Q6H PRN PRN Reason: Pain, moderate (4-7) Stop: 11/24/18 15:43 Last Admin: 11/22/18 08:11 Dose: 1 tab Pantoprazole Sodium (Protonix Inj) 40 mg IVP DAILY [facility] Last Admin: 01/12/19 09:46 Dose: 40 mg Potassium Chloride (K-Dur 20 Meq Er Tab) 40 meq PO Q8H [facility] Stop: 11/23/18 09:31 Last Admin: 11/22/18 09:45 Dose: 40 meq Rosuvastatin Calcium (Crestor) 5 mg PO HS [facility] Last Admin: 11/21/18 21:43 Dose: 5 mg - Labs Labs: 11/22/18 06:20 11/22/18 06:20 PT 13.6 SECONDS (9.7-12.2) H 11/18/18 20:03 INR 1.2 11/18/18 20:03 APTT 59 SECONDS (21-34) H D 11/19/18 17:31 Assessment and Plan - Assessment and Plan (Free Text) Assessment: -Hypoxic respiratory failure: resolved: on room air, saturating > 94 -Severe systolic heart failure:d/c milrinone, start coreg, add acei as BP tolerates, start statin + asa if no contraindication, cardiology follow up -?Lobar PNA: continue empirical abx, shorten abx course if no cultures id entified -continue dvt/pud ppx -Encourage oral diet -PT/OT out of bed -continue oxycodone q6hrs PRN for knee pain -PAtient remains hemodynamically stable
[2018-11-22] MEDS: Piperacillin/Tazobact 3.375 GM in Sodium Chloride 0.9% 100 ML IVPB SCH (18:48)
[2018-11-23] MEDS: Potassium Chloride 20 mEq ER Tab PO SCH ×2 (01:11→09:29)
[2018-11-23] MEDS: Piperacillin/Tazobact 3.375 GM in Sodium Chloride 0.9% 100 ML IVPB SCH ×3 (03:19→18:15)
[2018-11-23] MEDS: Oxycodone/Acetaminophen 5/325 mg Tab PO PRN ×4 (03:20→21:37)
[2018-11-24] MEDS: Piperacillin/Tazobact 3.375 GM in Sodium Chloride 0.9% 100 ML IVPB SCH ×3 (02:32→18:31)
[2018-11-24] MEDS: Oxycodone/Acetaminophen 5/325 mg Tab PO PRN ×4 (03:58→22:09)
--- NOTE | 2018-11-24 10:35 | CP.PCM.PN ---
<Dmitry Daniels - Last Filed: 11/24/18 14:53> Subjective - Date & Time of Evaluation Date of Evaluation: 11/24/18 Time of Evaluation: 10:32 - Subjective Subjective: Dmitry Daniels DO PGY1 - Internal Medicine [employer] - Progress Note for Dr. Glover - Cardiology Pt. seen and examined at bedside this morning NO acute events overnight Denies chest pain, sob, palpitations, N/V, Claudication Objective - Vital Signs/Intake and Output Vital Signs (last 24 hours): Temp Pulse Resp BP Pulse Ox 98.5 F 63 18 122/86 98 11/24/18 09:14 11/24/18 09:14 11/24/18 09:14 11/24/18 09:14 11/24/18 00:00 Intake and Output: 11/24/18 11/24/18 06:59 18:59 Intake Total 1000 Output Total 1000 Balance 0 - Medications Medications: Current Medications Aspirin (Aspirin Chewable) 81 mg PO DAILY [facility] Last Admin: 11/24/18 09:12 Dose: 81 mg Carvedilol (Coreg) 6.25 mg PO Q12 [facility] Last Admin: 11/24/18 09:11 Dose: 6.25 mg Heparin Sodium (Porcine) (Heparin) 5,000 units SC Q8 [facility] Last Admin: 11/24/18 05:25 Dose: 5,000 units Piperacillin Sod/Tazobactam (Sod 3.375 gm/ Sodium Chloride) 100 mls @ 100 mls/hr IVPB Q8H [facility]; Protocol Last Admin: 11/24/18 02:32 Dose: 100 mls/hr Lisinopril (Zestril) 2.5 mg PO DAILY [facility] Last Admin: 11/23/18 09:29 Dose: 2.5 mg Oxycodone/Acetaminophen (Percocet 5/325 Mg Tab) 1 tab PO Q6H PRN PRN Reason: Pain, moderate (4-7) Stop: 11/24/18 15:43 Last Admin: 11/24/18 09:11 Dose: 1 tab Pantoprazole Sodium (Protonix Inj) 40 mg IVP DAILY [facility] Last Admin: 11/24/18 09:13 Dose: 40 mg Rosuvastatin Calcium (Crestor) 5 mg PO HS [facility] Last Admin: 11/23/18 21:33 Dose: 5 mg - Labs Labs: 11/22/18 06:20 11/22/18 06:20 PT 13.6 SECONDS (9.7-12.2) H 11/18/18 20:03 INR 1.2 11/18/18 20:03 APTT 59 SECONDS (21-34) H D 11/19/18 17:31 - Constitutional Appears: Well, Non-toxic - Head Exam Head Exam: ATRAUMATIC, NORMOCEPHALIC - Eye Exam Eye Exam: EOMI, Normal appearance, PERRL. absent: Scleral icterus - Respiratory Exam Respiratory Exam: Clear to Ausculation Bilateral, NORMAL BREATHING PATTERN. absent: Rales, Rhonchi, Wheezes - Cardiovascular Exam Cardiovascular Exam: RRR, +S1, +S2. absent: Murmur - GI/Abdominal Exam GI & Abdominal Exam: Soft. absent: Tenderness - Extremities Exam Extremities Exam: Normal Capillary Refill, Normal Inspection - Neurological Exam Neurological Exam: Alert, Awake, Oriented x3 - Psychiatric Exam Psychiatric exam: Normal Affect, Normal Mood - Skin Skin Exam: Dry, Intact, Warm Assessment and Plan (1) Non-ischemic cardiomyopathy Assessment & Plan: Status: Acute (2) CHF (congestive heart failure) Status: Acute (3) NSTEMI (non-ST elevated myocardial infarction) Status: Acute - Assessment and Plan (Free Text) Plan: R Heart Cath - 11/24 PM Can be NPO after -11/24 breakfast Start Lasix 40 IVP QD Start Aldactone 25 BID C/w Zestril 2.5 QD C/w Coreg 6.25 Q12 C/w ASA 81 QD C/w Crestor 5 QD Encourage PT / Ambulation Follow up repeat Echo <Ranjith Glover - Last Filed: 11/24/18 17:44> Objective - Vital Signs/Intake and Output Vital Signs (last 24 hours): Temp Pulse Resp BP Pulse Ox 98.4 F 58 L 20 130/88 100 11/24/18 16:12 11/24/18 16:12 11/24/18 16:12 11/24/18 16:12 11/24/18 16:12 Intake and Output: 11/24/18 11/24/18 06:59 18:59 Intake Total 1000 720 Output Total 1000 1800 Balance 0 -1080 - Medications Medications: Current Medications Aspirin (Aspirin Chewable) 81 mg PO DAILY [facility] Last Admin: 11/24/18 09:12 Dose: 81 mg Carvedilol (Coreg) 6.25 mg PO Q12 [facility] Last Admin: 11/24/18 09:11 Dose: 6.25 mg Furosemide (Lasix) 40 mg IVP DAILY [facility] Last Admin: 11/24/18 11:00 Dose: 40 mg Heparin Sodium (Porcine) (Heparin) 5,000 units SC Q8 [facility] Last Admin: 11/24/18 14:00 Dose: Not Given Piperacillin Sod/Tazobactam (Sod 3.375 gm/ Sodium Chloride) 100 mls @ 100 mls/hr IVPB Q8H [facility]; Protocol Last Admin: 11/24/18 11:37 Dose: 100 mls/hr Lisinopril (Zestril) 2.5 mg PO DAILY [facility] Last Admin: 11/24/18 10:00 Dose: Not Given Oxycodone/Acetaminophen (Percocet 5/325 Mg Tab) 1 tab PO Q6H PRN PRN Reason: Pain, severe (8-10) Stop: 11/27/18 16:21 Last Admin: 11/24/18 16:50 Dose: 1 tab Pantoprazole Sodium (Protonix Inj) 40 mg IVP DAILY [facility] Last Admin: 11/24/18 09:13 Dose: 40 mg Rosuvastatin Calcium (Crestor) 5 mg PO HS [facility] Last Admin: 11/23/18 21:33 Dose: 5 mg Spironolactone (Aldactone) 25 mg PO BID [facility] Last Admin: 11/24/18 11:35 Dose: 25 mg - Labs Labs: 11/22/18 06:20 11/22/18 06:20 PT 11.9 SECONDS (9.7-12.2) 11/24/18 13:34 INR 1.1 11/24/18 13:34 APTT 32 SECONDS (21-34) 11/24/18 13:34 Assessment and Plan (1) CHF (congestive heart failure) Status: Acute (2) Respiratory failure Status: Acute (3) NSTEMI (non-ST elevated myocardial infarction) Status: Acute (4) Dyspnea Status: Acute (5) Respiratory tract infection Status: Acute Attending/Attestation - Attestation I have personally seen and examined this patient.: Yes I have fully participated in the care of the patient.: Yes I have reviewed all pertinent clinical information, including history, physical exam and plan: Yes Notes (Text): 11/24/18 17:43 Repeat limited Echo shows EF of 40-45% plan for RHCx in am cont GDMT for CHF
--- NOTE | 2018-11-24 11:05 | CP.PCM.PN ---
Subjective - Date & Time of Evaluation Date of Evaluation: 11/24/18 Time of Evaluation: 09:57 - Subjective Subjective: PGY2 Medicine Note for Dr. Stewart Patient seen and examined this morning at bedside. Patient is feeling well and is currently without any complaints. He is currently waiting for a LifeVest prior to being discharged. Denies fevers, chills, nausea, vomiting, diarrhea, constipation, chest pain or shortness of breath. Objective - Vital Signs/Intake and Output Vital Signs (last 24 hours): Temp Pulse Resp BP Pulse Ox 98.5 F 63 18 122/86 98 11/24/18 09:14 11/24/18 09:14 11/24/18 09:14 11/24/18 09:14 11/24/18 00:00 Intake and Output: 11/24/18 11/24/18 06:59 18:59 Intake Total 1000 Output Total 1000 Balance 0 - Medications Medications: Current Medications Aspirin (Aspirin Chewable) 81 mg PO DAILY [facility] Last Admin: 11/24/18 09:12 Dose: 81 mg Carvedilol (Coreg) 6.25 mg PO Q12 [facility] Last Admin: 11/24/18 09:11 Dose: 6.25 mg Furosemide (Lasix) 40 mg IVP DAILY [facility] Heparin Sodium (Porcine) (Heparin) 5,000 units SC Q8 [facility] Last Admin: 11/24/18 05:25 Dose: 5,000 units Piperacillin Sod/Tazobactam (Sod 3.375 gm/ Sodium Chloride) 100 mls @ 100 mls/hr IVPB Q8H [facility]; Protocol Last Admin: 11/24/18 02:32 Dose: 100 mls/hr Lisinopril (Zestril) 2.5 mg PO DAILY [facility] Last Admin: 11/23/18 09:29 Dose: 2.5 mg Oxycodone/Acetaminophen (Percocet 5/325 Mg Tab) 1 tab PO Q6H PRN PRN Reason: Pain, moderate (4-7) Stop: 11/24/18 15:43 Last Admin: 11/24/18 09:11 Dose: 1 tab Pantoprazole Sodium (Protonix Inj) 40 mg IVP DAILY [facility] Last Admin: 11/24/18 09:13 Dose: 40 mg Rosuvastatin Calcium (Crestor) 5 mg PO HS [facility] Last Admin: 11/23/18 21:33 Dose: 5 mg Spironolactone (Aldactone) 25 mg PO BID [facility] - Labs Labs: 11/22/18 06:20 11/22/18 06:20 PT 13.6 SECONDS (9.7-12.2) H 11/18/18 20:03 INR 1.2 11/18/18 20:03 APTT 59 SECONDS (21-34) H D 11/19/18 17:31 - Constitutional Appears: Non-toxic, No Acute Distress - Head Exam Head Exam: ATRAUMATIC, NORMOCEPHALIC - Eye Exam Eye Exam: Normal appearance - ENT Exam ENT Exam: Mucous Membranes Moist - Neck Exam Neck Exam: absent: Lymphadenopathy - Respiratory Exam Respiratory Exam: NORMAL BREATHING PATTERN. absent: Accessory Muscle Use, Rales, Rhonchi, Wheezes, Respiratory Distress - Cardiovascular Exam Cardiovascular Exam: REGULAR RHYTHM, +S1, +S2 - GI/Abdominal Exam GI & Abdominal Exam: Soft. absent: Firm, Guarding, Rigid, Tenderness - Extremities Exam Extremities Exam: absent: Calf Tenderness, Pedal Edema - Neurological Exam Neurological Exam: Alert, Awake, Oriented x3 - Psychiatric Exam Psychiatric exam: Normal Affect, Normal Mood - Skin Skin Exam: Dry, Warm Assessment and Plan - Assessment and Plan (Free Text) Plan: CHF exacerbation NSTEMI Cardiology consulted, Dr. Glover * s/p cardiac Cath * EF ~15-20%, prox. LAD 55%, RCA 45% * patient awaiting Life Vest * Will need cardiac re-eval in 3 months * f/u additional Cardio recs Medications: * Aspirin 81mg PO daily * Carvedilol 6.25mg PO q12h * Lasix 40mg IVP daily * Lisinopril 2.5mg PO daily Lobar Pneumonia Respiratory Failure Chest CT on 11/18 showed - severe pulm edema CXR on 11/21: improved aeration of left lung; suspect left pleural effusion Sputum culture positive - Staph Aureus Medications: * Zosyn 3.375gm IVPB q8h Cocaine Abuse Alcohol Abuse Chronic Pain - Opioids (prescribed) Utox - positive for Cocaine, Opiates and Cannabinoids NSTEMI is likely secondary to Cocaine abuse. Patient counseled on the importance to discontinue all drug abuse. Patient states he understands and knows he is being given an other chance at life. "I have a 17 year old daughter and I plan on watching her graduate high school, then college." Patient states he is not drinking anymore alcohol and will not have any more cocaine. He is attempting to discontinue all opioid pain medication and only use marijuana for pain. Medications: * Percocet 1 tab q6h prn Prophylactic Care Heparin 5,000u SC q8h Protonix 40mg IVP daily DISPO: Patient to be discharged once he has his Life Vest and is cleared by Cardiology. Case discussed with Dr. Terry Kelly Reyes PGY2
[2018-11-24 13:47] LABS: INR 1.1; PROTHROMBIN TIME 11.9 SECONDS (9.7-12.2)
[2018-11-24 16:13] VITALS: RESP 20
--- NOTE | 2018-11-24 16:21 | CARD ---
APPROVED REPORT Date of service: 11/24/2018 EXAM: Two-dimensional and M-mode echocardiogram with Doppler and color Doppler. Other Information Quality : TDSRhythm : INDICATION LV Function:Systolic 2D DIMENSIONS IVSd1.4 (0.7-1.1cm)LVDd4.7 (3.9-5.9cm) PWd1.0 (0.7-1.1cm)LVDs3.7 (2.5-4.0cm) FS (%) 19.9 %LVEF (%)40.9 (>50%) LVEF (Miller's)42.80 % M-Mode DIMENSIONS LVEF (%)45 (>50%) Mitral Valve E/A ratio0.0 TDI E/Lateral E'0.0E/Medial E'0.0 LEFT VENTRICLE The ejection fraction is moderately impaired. LVEF 40-45%
[2018-11-25] MEDS: Piperacillin/Tazobact 3.375 GM in Sodium Chloride 0.9% 100 ML IVPB SCH ×2 (04:00→10:20)
[2018-11-25 05:41] LABS: BASO # 0.1 K/uL (0.0-0.2); BASO % 0.9 % (0.0-2.0); EOS # 0.4 K/uL (0.0-0.7); EOS % 3.2 % (0.0-4.0); HEMOGLOBIN 15.4 g/dL (12.0-18.0); LYMPH % 17.5 % (20.0-40.0); MEAN CELL VOLUME 84.2 fL (80.0-94.0); MEAN CORPUSCULAR HEMOGLOBIN 27.6 pg (27.0-31.0); MEAN CORPUSCULAR HGB CONC 32.8 g/dL (33.0-37.0); MEAN PLATELET VOLUME 9.1 fL (7.2-11.7); MONO # 1.1 K/uL (0.0-0.8); MONO % 9.9 % (0.0-10.0); NEUT # 7.8 K/uL (1.8-7.0); NEUT % 68.5 % (50.0-75.0); NRBC % 0.1 % (0.0-2.0); RBC 5.57 Mil/uL (4.40-5.90); RED CELL DISTRIBUTION WIDTH 14.3 % (11.5-14.5); WHITE BLOOD COUNT 11.3 K/uL (4.8-10.8)
[2018-11-25 06:44] LABS: ALB/GLOB RATIO 1.3 (1.0-2.1); ALBUMIN 3.7 g/dL (3.5-5.0); ALT/SGPT 34 U/L (21-72); AST/SGOT 40 U/L (17-59); BLOOD UREA NITROGEN 12 mg/dL (9-20); CALCIUM 8.5 mg/dl (8.6-10.4); GFR NON-AFRICAN AMERICAN > 60
[2018-11-25] MEDS ORDERED: Potassium Chloride 20 mEq ER Tab PO ONE (08:00)
[2018-11-25] MEDS: Oxycodone/Acetaminophen 5/325 mg Tab PO PRN (08:41)
--- NOTE | 2018-11-25 09:33 | CP.PCM.PN ---
Subjective - Date & Time of Evaluation Date of Evaluation: 11/25/18 Time of Evaluation: 09:00 - Subjective Subjective: Medicine Progress Note for Dr. Stewart Patient seen and examined at bedside. No acute events reported overnight. Patient is resting in bed comfortably. Patient is aware of his cardiac cath procedure with Dr. Glover this afternoon. He expressed interest in signing out AMA because he has been waiting for too long. Patient denies fever, chills, headache, shortness of breath, chest pain, nausea, vomiting, or diarrhea. Patient insisted on signing out AMA during attending round. Risks and danger of signing out was discussed extensively with the patient. Patient agreed to follow up as outpatient with Dr. Stewart. Objective - Vital Signs/Intake and Output Vital Signs (last 24 hours): Temp Pulse Resp BP Pulse Ox 97.8 F 53 L 20 107/64 98 11/24/18 23:55 11/25/18 09:13 11/24/18 23:55 11/24/18 23:55 11/24/18 23:55 - Medications Medications: Current Medications Aspirin (Aspirin Chewable) 81 mg PO DAILY [facility] Last Admin: 11/24/18 09:12 Dose: 81 mg Carvedilol (Coreg) 6.25 mg PO Q12 [facility] Last Admin: 11/24/18 22:09 Dose: 6.25 mg Furosemide (Lasix) 40 mg IVP DAILY [facility] Last Admin: 11/24/18 11:00 Dose: 40 mg Heparin Sodium (Porcine) (Heparin) 5,000 units SC Q8 [facility] Last Admin: 11/25/18 07:07 Dose: 5,000 units Piperacillin Sod/Tazobactam (Sod 3.375 gm/ Sodium Chloride) 100 mls @ 100 mls/hr IVPB Q8H [facility]; Protocol Last Admin: 11/25/18 04:00 Dose: 100 mls/hr Lisinopril (Zestril) 2.5 mg PO DAILY [facility] Last Admin: 11/24/18 10:00 Dose: Not Given Oxycodone/Acetaminophen (Percocet 5/325 Mg Tab) 1 tab PO Q6H PRN PRN Reason: Pain, severe (8-10) Stop: 11/27/18 16:21 Last Admin: 11/25/18 08:41 Dose: 1 tab Pantoprazole Sodium (Protonix Inj) 40 mg IVP DAILY [facility] Last Admin: 11/24/18 09:13 Dose: 40 mg Rosuvastatin Calcium (Crestor) 5 mg PO HS [facility] Last Admin: 11/24/18 22:12 Dose: 5 mg Spironolactone (Aldactone) 25 mg PO BID [facility] Last Admin: 11/24/18 18:30 Dose: 25 mg - Labs Labs: 11/25/18 05:37 11/25/18 05:37 PT 11.9 SECONDS (9.7-12.2) 11/24/18 13:34 INR 1.1 11/24/18 13:34 APTT 32 SECONDS (21-34) 11/24/18 13:34 - Additional Findings Additional findings: - Constitutional Appears: Non-toxic, No Acute Distress - Head Exam Head Exam: ATRAUMATIC, NORMOCEPHALIC - Eye Exam Eye Exam: Normal appearance - ENT Exam ENT Exam: Mucous Membranes Moist - Neck Exam Neck Exam: absent: Lymphadenopathy - Respiratory Exam Respiratory Exam: NORMAL BREATHING PATTERN. absent: Accessory Muscle Use, Rales, Rhonchi, Wheezes, Respiratory Distress - Cardiovascular Exam Cardiovascular Exam: REGULAR RHYTHM, +S1, +S2 - GI/Abdominal Exam GI & Abdominal Exam: Soft. absent: Firm, Guarding, Rigid, Tenderness - Extremities Exam Extremities Exam: absent: Calf Tenderness, Pedal Edema - Neurological Exam Neurological Exam: Alert, Awake, Oriented x3 - Psychiatric Exam Psychiatric exam: Normal Affect, Normal Mood - Skin Skin Exam: Dry, Warm Assessment and Plan - Assessment and Plan (Free Text) Assessment: CHF exacerbation NSTEMI Cardiology consulted, Dr. Glover * s/p cardiac Cath * EF ~15-20%, prox. LAD 55%, RCA 45% * patient awaiting Life Vest * Will need cardiac re-eval in 3 months * Cardiac cath RHCx planned for 2pm today * Repeat Echo shows EF 40-45% * f/u additional Cardio recs Medications: * Aspirin 81mg PO daily * Carvedilol 6.25mg PO q12h * Lasix 40mg IVP daily * Lisinopril 2.5mg PO daily Lobar Pneumonia Respiratory Failure Chest CT on 11/18 showed - severe pulm edema CXR on 11/21: improved aeration of left lung; suspect left pleural effusion Sputum culture positive - Staph Aureus Medications: * Zosyn 3.375gm IVPB q8h (started 11/22/18) Cocaine Abuse Alcohol Abuse Chronic Pain - Opioids (prescribed) Utox - positive for Cocaine, Opiates and Cannabinoids NSTEMI is likely secondary to Cocaine abuse. Patient in determined to quit alcohol and cocaine He is attempting to discontinue all opioid pain medication and only use marijuana for pain Medications: * Percocet 1 tab q6h prn Prophylactic Care Heparin 5,000u SC q8h Protonix 40mg IVP daily DISPO: Patiet refused cardiac cath today, signed out AMA. Case discussed with Dr. Stewart
--- NOTE | 2018-11-25 09:45 | CP.PCM.PN ---
Subjective - Date & Time of Evaluation Date of Evaluation: 11/25/18 Time of Evaluation: 17:59 - Subjective Subjective: Dmitry Daniels DO PGY1 - Internal Medicine [employer] - Cardiology Note for Dr. Glover Vital signs reviewed, vital signs stable. Lab work reviewed, mild leukocytosis appreciated, hypokalemia appreciated, hypocalcemia appreciated. Nursing notes reviewed, no acute events reported by nursing overnight. Patient unable to be examined as he left AMA prior to evaluation today. Objective - Vital Signs/Intake and Output Vital Signs (last 24 hours): Temp Pulse Resp BP Pulse Ox 97.8 F 53 L 20 107/64 98 11/24/18 23:55 11/25/18 09:13 11/24/18 23:55 11/24/18 23:55 11/24/18 23:55 - Medications Medications: Current Medications Aspirin (Aspirin Chewable) 81 mg PO DAILY [facility] Last Admin: 11/24/18 09:12 Dose: 81 mg Carvedilol (Coreg) 6.25 mg PO Q12 [facility] Last Admin: 11/24/18 22:09 Dose: 6.25 mg Furosemide (Lasix) 40 mg IVP DAILY [facility] Last Admin: 11/24/18 11:00 Dose: 40 mg Heparin Sodium (Porcine) (Heparin) 5,000 units SC Q8 [facility] Last Admin: 11/25/18 07:07 Dose: 5,000 units Piperacillin Sod/Tazobactam (Sod 3.375 gm/ Sodium Chloride) 100 mls @ 100 mls/hr IVPB Q8H [facility]; Protocol Last Admin: 11/25/18 04:00 Dose: 100 mls/hr Lisinopril (Zestril) 2.5 mg PO DAILY [facility] Last Admin: 11/24/18 10:00 Dose: Not Given Oxycodone/Acetaminophen (Percocet 5/325 Mg Tab) 1 tab PO Q6H PRN PRN Reason: Pain, severe (8-10) Stop: 11/27/18 16:21 Last Admin: 11/25/18 08:41 Dose: 1 tab Pantoprazole Sodium (Protonix Inj) 40 mg IVP DAILY [facility] Last Admin: 11/24/18 09:13 Dose: 40 mg Rosuvastatin Calcium (Crestor) 5 mg PO HS [facility] Last Admin: 11/24/18 22:12 Dose: 5 mg Spironolactone (Aldactone) 25 mg PO BID [facility] Last Admin: 11/24/18 18:30 Dose: 25 mg - Labs Labs: 11/25/18 05:37 11/25/18 05:37 PT 11.9 SECONDS (9.7-12.2) 11/24/18 13:34 INR 1.1 11/24/18 13:34 APTT 32 SECONDS (21-34) 11/24/18 13:34 Assessment and Plan (1) Non-ischemic cardiomyopathy Status: Acute (2) CHF (congestive heart failure) Status: Acute (3) NSTEMI (non-ST elevated myocardial infarction) Status: Acute - Assessment and Plan (Free Text) Plan: Patient is to undergo cardiac catheterization this afternoon, Will be made NPO after breakfast this morning. Physical therapy evaluation reviewed, recommend patient to be discharged with faisal, an outpatient PT. Patient left AMA prior to catheterization. Spoke w/ patient on phone Called in prescriptions w/ pharmacy - [facility] [place] - [address] [place] [id number] Lasix 40 PO QD Aldactone 25 BID Zestril 2.5 QD Coreg 6.25 Q12 ASA 81 QD Crestor 5 QD Patient agreed to follow up in office 12/04.
[2018-11-25 10:00] VITALS: PULSE 57; TEMP 97.9; O2SAT 97
[2018-11-25 10:21] VITALS: BP 121/67
== END 2018-11-25 12:23 | disposition left against medical advice (07) | DRG 280 ==
LOC: C.ER 14:28 → C.9E 17:32 → C.9I 18:44 → C.5S 11-24 20:04
PROVIDERS: ADMIT Internal Medicine Pulmonary Disease; ATTEND Internal Medicine Pulmonary Disease
PROC: 0BH18EZ Insertion of Endotracheal Airway into Trachea, Via Natural or Artificial Opening Endoscopic (ICD-10-PCS; principal; 2018-11-18)
PROC: 5A1945Z Respiratory Ventilation, 24-96 Consecutive Hours (ICD-10-PCS; 2018-11-18)
PROC: 5A09357 Assistance with Respiratory Ventilation, Less than 24 Consecutive Hours, Continuous Positive Airway Pressure (ICD-10-PCS; 2018-11-18)
PROC: 4A023N7 Measurement of Cardiac Sampling and Pressure, Left Heart, Percutaneous Approach (ICD-10-PCS; 2018-11-19)
PROC: B2111ZZ Fluoroscopy of Multiple Coronary Arteries using Low Osmolar Contrast (ICD-10-PCS; 2018-11-19)
PROC: B2151ZZ Fluoroscopy of Left Heart using Low Osmolar Contrast (ICD-10-PCS; 2018-11-19)
DX: I21.4 Non-ST elevation (NSTEMI) myocardial infarction (principal); J96.91 Respiratory failure, unspecified with hypoxia; I50.23 Acute on chronic systolic (congestive) heart failure; R57.0 Cardiogenic shock; J18.1 Lobar pneumonia, unspecified organism; I42.9 Cardiomyopathy, unspecified; E87.2 Acidosis; E83.51 Hypocalcemia; E87.6 Hypokalemia; F12.90 Cannabis use, unspecified, uncomplicated; F14.90 Cocaine use, unspecified, uncomplicated; I11.0 Hypertensive heart disease with heart failure; I48.0 Paroxysmal atrial fibrillation; I25.10 Atherosclerotic heart disease of native coronary artery without angina pectoris; G89.29 Other chronic pain; M25.569 Pain in unspecified knee; F10.10 Alcohol abuse, uncomplicated; Y90.9 Presence of alcohol in blood, level not specified; F11.90 Opioid use, unspecified, uncomplicated